=== PATIENT | female | born 1970 ===

== ENCOUNTER 2020-07-01 12:00 | Outpatient (REF) | payer OTHER, SELFPAY ==
[2020-07-01 13:15] LABS: Hemoglobin 9.9 g/dl (12.0-16.0); Imm Gran Abs Auto 0.01 X10*3/uL (0.00-0.03); Imm Gran Pct Auto 0.2 % (0.0-0.4); MANUAL DIFF FLAG SCAN; SCAN SMEAR FLAG 1
[2020-07-01 13:17] LABS: Basophils Percent Auto 0.2 % (0-2); Eosinophils Absolute Auto 0.2 X10*3/uL (0.0-0.4); Eosinophils Percent Auto 4.5 % (0-4); Hematocrit 35.9 % (37-47); Lymphocytes Absolute Auto 1.6 X10*3/uL (1.2-4.9); Lymphocytes Percent Auto 34.8 % (20-40); Mean Corpuscular HGB Conc 27.6 g/dl (31.0-35.0); Mean Corpuscular Hemoglobin 18.4 pg (27.0-33.0); Mean Corpuscular Volume 66.9 fL (80-98); Mean Platelet Volume 10.4 fL (9.4-12.3); Monocytes Absolute Auto 0.5 X10*3/uL (0.1-1.2); Monocytes Percent Auto 9.8 % (2-11); Neutrophils Absolute Auto 2.4 X10*3/uL (2.0-8.3); Neutrophils Percent Auto 50.5 % (45-73); Platelet Count 262 X10*3/uL (160-400); Red Blood Count 5.37 X10*6/uL (4.20-5.50); Red Cell Distribution Width 18.2 % (11.0-16.0); White Blood Count 4.7 X10*3/uL (4.8-10.8)
[2020-07-01 13:19] LABS: PLT ABN DIST 1
[2020-07-01 13:47] LABS: Anion Gap 10 (12-20); Blood Urea Nitrogen 13 mg/dL (9-16); Calcium 8.9 mg/dL (8.4-10.2); Carbon Dioxide 27 mmol/L (22-29); Chloride 105 mmol/L (96-108); Estimated Glomerular Filt Rate > 60; Glucose Fasting 71 mg/dL (60-99); Sodium 138 mmol/L (135-145)
== END 2020-07-01 12:01 | disposition home or self-care (01) ==
LOC: HO.LAB 12:00
PROVIDERS: PCP Internal Medicine; Visit Provider Nurse Practitioner Family
DX: M51.36 Other intervertebral disc degeneration, lumbar region (principal); D64.9 Anemia, unspecified
CPT/HCPCS: 36415; 80048; 85025

== ENCOUNTER 2020-09-20 07:49 | Outpatient (REF) | payer OTHER, SELFPAY | END 2020-09-20 07:50 | disposition home or self-care (01) | LOC: HO.MDS 07:49 | PROVIDERS: PCP Internal Medicine; Visit Provider Internal Medicine Medical Oncology | DX: D50.9 Iron deficiency anemia, unspecified (principal) | CPT/HCPCS: 96365; 96366; J1200; J1750; Q0163 ==

== ENCOUNTER → 2021-01-23 16:06 | Outpatient (BNVA) | payer OTHER, SELFPAY | PROVIDERS: PCP Internal Medicine; Referring Provider Internal Medicine; Visit Provider Nurse Practitioner Family | DX: R10.84 Generalized abdominal pain (principal); D50.9 Iron deficiency anemia, unspecified; D64.9 Anemia, unspecified; K59.00 Constipation, unspecified; M51.36 Other intervertebral disc degeneration, lumbar region; Z98.51 Tubal ligation status | CPT/HCPCS: 99212 ==

== ENCOUNTER → 2021-04-22 13:54 | Outpatient (BNVA) | payer OTHER, SELFPAY | PROVIDERS: PCP Internal Medicine; Visit Provider Nurse Practitioner Family | DX: K59.03 Drug induced constipation (principal); D50.9 Iron deficiency anemia, unspecified; K64.9 Unspecified hemorrhoids; Z88.6 Allergy status to analgesic agent; Z88.5 Allergy status to narcotic agent; Z88.0 Allergy status to penicillin; Z88.8 Allergy status to other drugs, medicaments and biological substances | CPT/HCPCS: 99212 ==

== ENCOUNTER 2021-05-17 10:25 | Emergency (ER) | payer OTHER, SELFPAY ==
[2021-05-17 10:41] VITALS: BP 156/107; PULSE 84; RESP 16; TEMP 36.5; O2SAT 99; BMI 30.1
== END 2021-05-17 12:17 | disposition left against medical advice (07) ==
PROVIDERS: Emergency Provider Emergency Medicine; PCP Internal Medicine
DX: M54.5 Low back pain (principal); R10.9 Unspecified abdominal pain
CPT/HCPCS: 99281; 99282

== ENCOUNTER 2021-05-20 15:11 | Outpatient (REF) | payer OTHER, SELFPAY ==
[2021-05-20 17:29] LABS: Hematocrit 43.6 % (37-47); Hemoglobin 13.8 g/dl (12.0-16.0); Mean Corpuscular HGB Conc 31.7 g/dl (31.0-35.0); Mean Corpuscular Hemoglobin 26.1 pg (27.0-33.0); Mean Corpuscular Volume 82.6 fL (80-98); Mean Platelet Volume 10.6 fL (9.4-12.3); Platelet Count 230 X10*3/uL (160-400); Red Blood Count 5.28 X10*6/uL (4.20-5.50); Red Cell Distribution Width 13.7 % (11.0-16.0); White Blood Count 5.3 X10*3/uL (4.8-10.8)
[2021-05-20 17:44] LABS: Alanine Aminotransferase 38 U/L (0-31); Albumin Level 3.9 g/dL (3.5-5.0); Alkaline Phosphatase 75 U/L (39-117); Anion Gap 11 (12-20); Aspartate Amino Transferase 23 U/L (5-31); Bilirubin Total 0.6 mg/dL (0.0-1.0); Blood Urea Nitrogen 16 mg/dL (9-16); Calcium 9.8 mg/dL (8.4-10.2); Carbon Dioxide 24 mmol/L (22-29); Chloride 107 mmol/L (96-108); Creatinine Clr Calc Pharmacy 94.2; Estimated Glomerular Filt Rate > 60; Glucose Random 88 mg/dL (60-115); Lipase 48 U/L (8-78); Potassium 4.2 mmol/L (3.3-5.1); Sodium 138 mmol/L (135-145)
== END 2021-05-20 15:12 | disposition home or self-care (01) ==
LOC: HO.LAB 15:11
PROVIDERS: PCP Internal Medicine; Referring Provider Internal Medicine; Visit Provider Nurse Practitioner Family
DX: R10.84 Generalized abdominal pain (principal); K59.03 Drug induced constipation; R11.0 Nausea; R14.0 Abdominal distension (gaseous)
CPT/HCPCS: 36415; 80053; 83516; 83690; 85027; 99212

== ENCOUNTER 2021-06-10 08:48 | Day surgery (SDC) | payer OTHER, SELFPAY ==
[2021-06-05 09:10] VITALS: BMI 30.1
--- NOTE | 2021-06-09 08:29 | HO.ANESPROP2 ---
Documented by User: Nora Mac NP 06/09/21 08:31 HPI - Anesthesia Eval Consult details Narrative: 50yo F for Colonoscopy *Multiple Med Allergies* PMFSH Active Problems Active Problems: All Active Problems (Updated 03/17/21 @ 12:16 by Sejal Watkins MD) Allergic rhinitis (Acute) Drug induced constipation (Acute) Abdominal pain (Acute) Iron deficiency anemia (Acute) Anemia (Acute) Lumbar degenerative disc disease (Acute) Past Medical History Medical History Abdominal pain Allergic rhinitis Anemia Drug induced constipation Lumbar degenerative disc disease Family History Family History Father No problems noted. Mother History of kidney cancer Maternal Grandmother Colon cancer Daughter Asthma Surgical History Surgical History History of laparoscopic cholecystectomy History of tubal ligation Social History Social History Housing: Apartment Alcohol intake: never Patient Tobacco Use Status: Never used Tobacco Tobacco use type: Cigarette e-Cigarette/Vaping Use: Never Used Second Hand Smoke Exposure: No Advance Directives: No Advance Directives Information Provided: Yes service: No Current occupational status: unemployed Meds Allergies Allergy/AdvReac Type Severity Reaction Status Date / Time codeine Allergy Intermediate HIVES, Verified 05/20/21 15:32 [From Tylenol-Codeine #3] aggitation omeprazole [OMEPRAZOLE] Allergy Intermediate ABD.PAIN, Verified 05/20/21 15:32 abdominal bloating, abdominal bloating oxycodone [OXYCODONE] Allergy Intermediate AGITATION Verified 05/20/21 15:32 penicillin G Allergy Intermediate rash Verified 05/20/21 15:32 acetaminophen [Percocet] AdvReac Intermediate aggitation Verified 05/20/21 15:32 morphine [MORPHINE] AdvReac Intermediate AGITATION, Verified 05/20/21 15:32 flip out Exam Exam Date and Time: June 09, 2021 0829 Height,Weight and Vital Signs: Height 5 ft 3 in Weight 77.111 kg Pertinent Lab Results Pertinent Lab Results: Laboratory Tests 09/28/21 09/28/21 16:25 16:25 WBC 5.3 Hgb 13.8 Hct 43.6 Plt Count 230 Sodium 138 Potassium 4.2 Chloride 107 Carbon Dioxide 24 BUN 16 Creatinine 0.71 Assessment and Plan Assessment Anesthesia Assessment: Chart Reviewed Documented by User: Jarod Britt MD 06/10/21 09:20 [facility] Past Medical History Medical History Abdominal pain Allergic rhinitis Anemia Drug induced constipation Lumbar degenerative disc disease Family History Family History Father No problems noted. Mother History of kidney cancer Maternal Grandmother Colon cancer Daughter Asthma Surgical History Surgical History History of laparoscopic cholecystectomy History of tubal ligation Social History Social History Housing: Apartment Alcohol intake: never Patient Tobacco Use Status: Never used Tobacco Tobacco use type: Cigarette e-Cigarette/Vaping Use: Never Used Second Hand Smoke Exposure: No Advance Directives: No Advance Directives Information Provided: Yes service: No Current occupational status: unemployed Meds Allergies Allergy/AdvReac Type Severity Reaction Status Date / Time codeine Allergy Intermediate HIVES, Verified 05/20/21 15:32 [From Tylenol-Codeine #3] aggitation omeprazole [OMEPRAZOLE] Allergy Intermediate ABD.PAIN, Verified 05/20/21 15:32 abdominal bloating, abdominal bloating oxycodone [OXYCODONE] Allergy Intermediate AGITATION Verified 05/20/21 15:32 penicillin G Allergy Intermediate rash Verified 05/20/21 15:32 acetaminophen [Percocet] AdvReac Intermediate aggitation Verified 05/20/21 15:32 morphine [MORPHINE] AdvReac Intermediate AGITATION, Verified 05/20/21 15:32 flip out Exam Airway Mallampati Class: III TM Dist: >3cm Neck ROM: Full
--- NOTE | 2021-06-10 08:57 | MHC.SHP ---
Pre-Procedural Eval Section A Date of Service: 06/10/21 The patient is an INPATIENT: No Changes since office visit: Yes Patient answered all questions; No Cold of Flu in the past 2 weeks, No New Medical Problems and No Changes in Medication The History & Physical has been completed within 30 days and I have reviewed it.: Yes Section B Chief Complaint: Screening Allergies: Allergies Allergy/AdvReac Type Severity Reaction Status Date / Time codeine Allergy Intermediate HIVES, Verified 05/20/21 15:32 [From Tylenol-Codeine #3] aggitation omeprazole [OMEPRAZOLE] Allergy Intermediate ABD.PAIN, Verified 05/20/21 15:32 abdominal bloating, abdominal bloating oxycodone [OXYCODONE] Allergy Intermediate AGITATION Verified 05/20/21 15:32 penicillin G Allergy Intermediate rash Verified 05/20/21 15:32 acetaminophen [Percocet] AdvReac Intermediate aggitation Verified 05/20/21 15:32 morphine [MORPHINE] AdvReac Intermediate AGITATION, Verified 05/20/21 15:32 flip out Plan I have reviewed the history and physical and performed a pertinent physical examination on my patient. No changes have occurred unless specified.
[2021-06-10 09:22] VITALS: BP 120/75; PULSE 88; RESP 18; TEMP 35.8; O2SAT 97
[2021-06-10] MEDS: Lactated Ringers 1,000 ML 100 ML IVCONT (09:24)
--- NOTE | 2021-06-10 09:59 | P.OP_ITS ---
Operative Note Operative Note Date of Service: 06/10/21 Narrative: Pre-op diagnosis:?Colon cancer screening, chronic constipation, abdominal pain Post-op diagnosis:?other (Diverticulosis, hemorrhoids) Procedure:? COLONOSCOPY TILL CECUM WITH BIOPSIES Consent: Indications for the procedure and potential complications of bleeding, perforation, reaction to medications and missed diagnosis were discussed with the patient and informed consent was obtained. Instrument: Olympus PCF H 190 L variable stiffness pediatric colonoscope Monitoring: Vital signs and clinical assessment, intermittent blood pressure monitoring, continuous EKG monitoring, Pulse oximetry and Carbon Dioxide monitoring were done throughout the procedure. Colon withdrawl time was 18 minutes. Procedure: The patient was placed in the left lateral decubitis position and pre-procedure medications were administered. After a digital rectal examination of the ano-rectum, the video colonoscope was inserted into the rectum and advanced through the colon to the cecum. The colonoscope was slowly withdrawn in a retrograde panoramic fashion and the colon mucosa was carefully examined including a retroflexed view of the rectum. Findings and interventions are described below. Procedure Difficulty: Without difficulty Findings: Terminal Ileum: Distal 5-6 cm was examined - showed multiple 4-5 mm nodules which were biopsied. Cecum:? Normal Ascending Colon:? Normal Transverse Colon:? Normal Descending Colon:? Normal Sigmoid Colon:? Moderate diverticulosis Rectum:? Normal Ano-rectum:? Moderate internal hemorrhoids Colon preparation:? Good after copious irrigation and fair in some areas of the colon due to undigested vegetable matter which could not be suctioned (pt had chicken noodle soup last night). Impression and Post Procedure Diagnosis: Colonoscopy Findings: No polyps were detected. Random biopsies obtained from the TI and cold to check for IBD/microscopic colitis. Moderate diverticulosis seen in the sigmoid colon Moderate hemorrhoids on retroflexed exam. Plan: Await pathology results Patient has an appointment on 07/04/21 in the GI Clinic with ? Minnie Gaffney, MANUFACTURING ENGINEERING MANAGER[employer]INA . Repeat Colonoscopy interval based on path results - in 5 years if biopsies are normal and due to FH of colon cancer. Above findings were reviewed with the patient and diverticulosis handouts were given in the discharge area Surgeon:?Mary Black MD Anesthesia:?MAC (Bea Ivy CRNA) Was an Conveyor Mechanic used for this Procedure?:?Yes Conveyor Mechanic:?Shelley Morfin Estimated blood loss (mL):?0 Pathology:?other (A. T I BIOPSIES? B. RANDOM COLON BIOPSIES, R/O INFLAMMATORY BOWEL DISEASE) Condition:?stable Disposition:?PACU
[2021-06-10 10:35] VITALS: BP 111/69; PULSE 83; RESP 22; TEMP 36.3; O2SAT 97
[2021-06-10 10:50] VITALS: BP 140/89; PULSE 88; RESP 18; TEMP 36.3; O2SAT 99
== END 2021-06-10 11:50 | disposition home or self-care (01) ==
PROVIDERS: PCP Internal Medicine; Visit Provider Internal Medicine Gastroenterology
PROC: 0DJD8ZZ Inspection of Lower Intestinal Tract, Via Natural or Artificial Opening Endoscopic (ICD-10-PCS; CPT 45378; principal; 2021-06-10 09:50)
DX: Z12.11 Encounter for screening for malignant neoplasm of colon (principal); K57.30 Diverticulosis of large intestine without perforation or abscess without bleeding; K64.8 Other hemorrhoids; Z80.0 Family history of malignant neoplasm of digestive organs; K59.03 Drug induced constipation; Z79.899 Other long term (current) drug therapy; D50.9 Iron deficiency anemia, unspecified; Z90.49 Acquired absence of other specified parts of digestive tract; Z98.51 Tubal ligation status; Z88.0 Allergy status to penicillin; Z88.8 Allergy status to other drugs, medicaments and biological substances
CPT/HCPCS: 45380; 88305

== ENCOUNTER → 2021-07-04 14:15 | Outpatient (BNVA) | payer OTHER, SELFPAY | PROVIDERS: PCP Internal Medicine; Visit Provider Nurse Practitioner Family ==

== ENCOUNTER → 2021-09-24 13:49 | Outpatient (BNVA) | payer OTHER, SELFPAY | PROVIDERS: PCP Internal Medicine; Referring Provider Internal Medicine; Visit Provider Nurse Practitioner Family | DX: R10.84 Generalized abdominal pain (principal); K59.04 Chronic idiopathic constipation | CPT/HCPCS: 99212 ==

== ENCOUNTER 2021-12-13 18:04 | Emergency (ER) | payer OTHER, SELFPAY ==
--- NOTE | ~2021-12-13 | XR_ITS ---
EXAMINATION: XR CHEST CLINICAL INFORMATION: Cough COMPARISON: 08/30/2018 TECHNIQUE: Frontal view of the chest was obtained. FINDINGS: No significant abnormality is noted involving the heart, lungs, mediastinum, bony thorax or soft tissues. XR/XR chest 1V IMPRESSION: Unremarkable examination.
[2021-12-13 18:08] VITALS: BP 148/94; PULSE 89; RESP 20; TEMP 36.6; O2SAT 98; BMI 30.1
--- NOTE | 2021-12-13 19:16 | ED_ITS ---
HPI - URI/Sore Throat General Chief Complaint: Upper Respiratory Symptoms Stated Complaint: Flu like symptoms Time Seen by Provider: 12/13/21 19:16 Source: patient Mode of arrival: ambulatory Limitations: no limitations History of Present Illness HPI Narrative: Patient is a 51 year old female presenting to the emergency department today with a cough and feeling generally unwell. Patient states that for the last 2 days, she has had a cough and felt generally unwell. Patient denies any dizziness, lightheadedness, abdominal pain, nausea, vomiting, chills, blurry vision, double vision, loss of vision, chest pain, difficulty breathing, shortness of breath, back pain, night sweats, pain with urination, increased urinary frequency, increased urinary urgency, blood in her urine or stool, syncope or a near syncopal episode, recent trauma or falls, bowel incontinence, bladder incontinence, bowel retention, bladder retention, or any other complaints at this time. MD elicited complaint: fever and cough Onset (ago): day(s) (2) Consistency: constant Able to tolerate fluids by mouth: Yes Exacerbating factors: nothing Relieving factors: nothing Context: sick contacts Associated symptoms: fever and cough Treatments prior to arrival: none Related Data Previous Rx's Medication Instructions Recorded loratadine 10 mg tablet (Allergy 10 mg PO DAILY PRN 90 Days #90 tab 02/12/21 Relief (loratadine)) [id number] 1 cap PO QID #120 cap 09/24/21 12,000-38,000-60,000 unit capsule,delayed rel (Creon) lubiprostone 8 mcg capsule 8 mcg PO BID #60 cap 09/24/21 (Amitiza) hydrocodone 5 mg-acetaminophen 325 1 tab PO TID PRN 30 Days #90 tab 11/17/21 mg tablet Allergies Allergy/AdvReac Type Severity Reaction Status Date / Time codeine Allergy Intermediate HIVES, Verified 12/04/21 08:14 [From Tylenol-Codeine #3] aggitation omeprazole [OMEPRAZOLE] Allergy Intermediate ABD.PAIN, Verified 12/04/21 08:14 abdominal bloating, abdominal bloating oxycodone [OXYCODONE] Allergy Intermediate AGITATION Verified 12/04/21 08:14 penicillin G Allergy Intermediate rash Verified 12/04/21 08:14 acetaminophen [Percocet] AdvReac Intermediate aggitation Verified 12/04/21 08:14 morphine [MORPHINE] AdvReac Intermediate AGITATION, Verified 12/04/21 08:14 flip out Review of Systems Constitutional: Constitutional: Reports no additional constitutional complaints, Denies chills, Reports fever(s) and Denies night sweats Eyes: Eyes: Reports no additional eye complaints, Denies blurry vision, Denies change in vision, Denies diplopia, Denies eye discharge, Denies loss of vision and Denies eye pain ENT: Denies dizziness Cardiovascular: Cardiovascular: Reports no additional cardiovascular complaints, Denies chest pain, Denies lightheadedness, Denies Loss of Consciousness and Denies dyspnea Respiratory: Respiratory: Reports no additional respiratory complaints, Reports cough and Denies dyspnea Gastrointestinal: Gastrointestinal: Reports no additional gastrointestinal complaints, Denies abdominal pain, Denies melena, Denies hematochezia, Denies change in bowel habits and Denies change in stool character Genitourinary: Genitourinary: Denies hematuria, Denies urinary frequency, Denies dysuria, Denies urinary incontinence, Denies urinary hesitancy and Denies urinary urgency Musculoskeletal: Musculoskeletal: Reports no additional musculoskeletal complaints, Denies numbness and Denies tingling Neurologic: Denies dizziness, Denies loss of vision, Denies numbness and Denies tingling Psychiatric: Psychiatric: Reports no additional psychiatric complaints Endocrine: Endocrine: Reports no additional endocrine complaints Hematologic/Lymphatic: Hematologic/Lymphatic: Reports no additional hematologic/lymphatic complaints Allergic/Immunologic: Allergic/Immunologic: Reports no additional allergic/immunologic complaints [facility] Past Medical History Attestation statement: The following information was validated with the patient. Source: old records reviewed Medical History Abdominal pain Allergic rhinitis Anemia BMI 32.0-32.9,adult Drug induced constipation Hx of hemorrhoids Lumbar degenerative disc disease Rash Surgical History History of esophagogastroduodenoscopy (EGD) History of laparoscopic cholecystectomy History of tubal ligation Hx of colonoscopy Family History Family History Father No problems noted. Mother History of kidney cancer Maternal Grandmother Colon cancer Daughter Asthma Social History Social History (Reviewed 12/13/21 @ 20:00 by WILMAN Myers Housing: Apartment Alcohol intake: never Patient Tobacco Use Status: Never used Tobacco e-Cigarette/Vaping Use: Never Used Second Hand Smoke Exposure: No Advance Directives: No Advance Directives Information Provided: No service: No Current occupational status: unemployed Cognitive needs: No Hearing needs: No Vision needs: No Physical Exam Vital Signs: Vital Signs: Last Vital Signs Temp 97.9 F 12/13/21 18:08 Pulse 89 12/13/21 18:08 Resp 20 12/13/21 18:08 BP 148/94 H 12/13/21 18:08 Pulse Ox 98 12/13/21 18:08 BMI result Body Mass Index 30.1 Const: General: cooperative, no acute distress, alert and awake Nutritional Appearance: well nourished Orientation/consciousness: patient oriented x3 Limitations: no limitations HEENT: Head: Yes normal to inspection and Yes atraumatic Ears: hearing grossly normal bilaterally and external ears normal General nose exam: Normal external nose present, no nasal discharge noted and no epistaxis Face and sinus: Yes normal facial exam, No abrasion and No laceration Mouth: Normal oral and palatal mucosa present, no drooling and no muffled voice Eyes: General: appearance normal, both eyes and all related structures Periorbital: periorbital findings normal Eyelids: Yes eyelids normal Conjunctivae: conjunctivae normal Pupils: Equal, round and reactive pupils present EOM: EOMs intact bilaterally Neck: Neck: Yes normal visual inspection, Yes full ROM and Yes no lymphadenopathy Chest: Chest palpation & inspection: normal inspection of the chest Resp: Effort & Inspection: normal respiratory effort and able to speak in complete sentences Auscultation: clear to auscultation bilaterally Cardio: Rate: regular rate Rhythm: regular rhythm GI: Inspection: Yes normal to inspection Neuro: General: patient oriented x3 and moves all extremities Cranial nerves: Yes Equal, round and reactive pupils present Cognition (Neuro): normal cognition Motor exam (neuro): 5/5 motor strength present throughout Sensory Exam: Normal double simultaneous stimulation for sensation Coordination: [id number] test normal Extrem: General: Yes normal to inspection, Yes full ROM and Yes capillary refi ll normal Psych: Appearance: grossly normal Mental Status: mental status grossly normal Affect: normal affect Attitude: cooperative Thought process: Normal thought process present Thought content: Normal thought content present Insight: Good insight present (Psych) MDM - URI/Sore Throat MDM Narrative Medical decision making narrative: Patient is a 51 year old female presenting to the emergency department today with a cough and feeling generally unwell. Patient's physical exam was unremarkable. Patient's rapid COVID-19 test was positive. Patient's chest x-ray showed no acute process. I explained my physical exam findings as well as all test results to the patient and the patient's daughter. I answered all questions asked by the patient and the patient's daughter. I stressed the importance of the patient taking her medication as prescribed. I stressed the importance of t he patient following up with her primary care provider. I stressed the importance of the patient returning to the emergency department immediately if her symptoms were to worsen or if she were to develop any dizziness, shortness of breath, difficulty breathing, chest pain, blurry vision, loss of vision, nausea, vomiting, abdominal pain, fever, chills, back pain, or any other complaints. Patient and the patient's daughter verbalized agreement and understanding with this treatment plan and discharge. Differential Diagnosis Differential diagnosis: Likely upper respiratory infection, viral infection (COVID-19) and influenza Medical Records Attestation: I reviewed the patient's medical records. Lab Data Attestation: I reviewed the patient's lab results. Labs: Lab Results 12/13/21 Range/Units 18:12 Influenza Type A (PCR) NEGATIVE (Negative) Influenza Type B (PCR) NEGATIVE (Negative) RSV RNA Qual (PCR) NEGATIVE (Negative) SARS-CoV-2 RNA (RT-PCR) POSITIVE A (Negative) Imaging Data Chest x-ray: Attestation: I personally reviewed and interpreted this imaging study as follows: My impression: No acute process. Radiologist's impression: EXAMINATION: XR CHEST CLINICAL INFORMATION: Cough COMPARISON: 08/30/2018 TECHNIQUE: Frontal view of the chest was obtained. FINDINGS: No significant abnormality is noted involving the heart, lungs, mediastinum, bony thorax or soft tissues. XR/XR chest 1V IMPRESSION: Unremarkable examination. Dictated By: Darion Owens MD Signed By: Electronically signed by Darion Owens MD 12/13/21 193 Discharge Plan Discharge Clinical Impression: COVID-19 Patient Disposition: Home, Self-Care Instructions: COVID-19 (Coronavirus Disease 2019) (ED) Additional Instructions: Follow up with your primary care provider. Return to the emergency department immediately if your symptoms worsen or if you develop any dizziness, shortness of breath, difficulty breathing, chest pain, blurry vision, loss of vision, nausea, vomiting, abdominal pain, fever, chills, back pain, or any other complaints. Prescriptions: No Action loratadine [Allergy Relief (loratadine)] 10 mg tablet 10 mg PO DAILY PRN (Reason: allergy symptoms) 90 Days Qty: 90 1RF hydrocodone-acetaminophen 5-325 mg tablet 1 tab PO TID PRN (Reason: pain) 30 Days Qty: 90 0RF Creon 12,000-38,000 -60,000 unit capsule,delayed release(DR/EC) 1 cap PO QID Qty: 120 4RF Rx Instructions: administer with meals and/or snacks lubiprostone [Amitiza] 8 mcg capsule 8 mcg PO BID Qty: 60 3RF Referrals: Sjeal Nolasco MD [Primary Care Provider] - (Follow up with your PCP.) Stand Alone Forms: Work/School Release Interventions: ED Discharge Assessment Last Done: 12/13/21 19:49 Discharge Date/Time: 12/13/21 19:53 Print Language: Uzbek
[2021-12-13 19:26] LABS: Influenza A PCR NEGATIVE (Negative); Influenza B PCR NEGATIVE (Negative); Resp Syncy Virus RNA Qual PCR NEGATIVE (Negative); SARS COV2 PCR INHOUSE POSITIVE (Negative)
== END 2021-12-13 19:53 | disposition home or self-care (01) ==
PROVIDERS: Emergency Provider Emergency Medicine Emergency Medical Services; PCP Internal Medicine
DX: U07.1 COVID-19 (principal); R50.9 Fever, unspecified; R05.9 Cough, unspecified; Z79.899 Other long term (current) drug therapy
CPT/HCPCS: 0241U; 71045; 99283

== ENCOUNTER → 2022-01-02 11:06 | Outpatient (BNVA) | payer OTHER, SELFPAY | PROVIDERS: PCP Internal Medicine; Referring Provider Internal Medicine; Visit Provider Nurse Practitioner Family | DX: K59.03 Drug induced constipation (principal); K58.1 Irritable bowel syndrome with constipation; K21.9 Gastro-esophageal reflux disease without esophagitis; R10.84 Generalized abdominal pain | CPT/HCPCS: 99212 ==

== ENCOUNTER 2022-01-07 12:41 | Outpatient (REF) | payer OTHER, SELFPAY ==
[2022-01-15 14:21] LABS: Pancreatic Elastase-1 >500 mcg/g
== END 2022-01-07 12:42 | disposition home or self-care (01) ==
LOC: HO.LNP 12:41
PROVIDERS: Visit Provider Nurse Practitioner Family
DX: R10.9 Unspecified abdominal pain (principal); K21.9 Gastro-esophageal reflux disease without esophagitis
CPT/HCPCS: 82656; 87338

== ENCOUNTER → 2022-03-02 12:04 | Outpatient (BNVA) | payer OTHER, SELFPAY | PROVIDERS: PCP Internal Medicine; Visit Provider Nurse Practitioner Family | DX: K21.9 Gastro-esophageal reflux disease without esophagitis (principal); R10.84 Generalized abdominal pain; K58.2 Mixed irritable bowel syndrome; K64.9 Unspecified hemorrhoids; Z79.899 Other long term (current) drug therapy | CPT/HCPCS: 99212 ==

== ENCOUNTER 2022-03-17 15:39 | Outpatient (REF) | payer OTHER, SELFPAY ==
[2022-03-18 15:42] LABS: H Pylori Breath Test Positive (Negative)
== END 2022-03-17 15:40 | disposition home or self-care (01) ==
LOC: HO.LNP 15:39
PROVIDERS: Visit Provider Nurse Practitioner Family
DX: Z11.2 Encounter for screening for other bacterial diseases (principal)
CPT/HCPCS: 83013; 99212

== ENCOUNTER → 2022-05-20 13:58 | Outpatient (BNVA) | payer OTHER, SELFPAY | PROVIDERS: PCP Internal Medicine; Visit Provider Surgery | DX: K64.8 Other hemorrhoids (principal) | CPT/HCPCS: 46600; 99202 ==

== ENCOUNTER 2022-06-09 17:04 | Outpatient (REF) | payer OTHER, SELFPAY ==
[2022-06-09 17:26] LABS: Amphetamine Screen Urine Not Detected (Not Detect); Barbiturates, Urine Not Detected (Not Detect); Benzodiazepines Screen Urine Not Detected (Not Detect); Cannabinoid Screen Urine Not Detected (Not Detect); Cocaine Screen Urine Not Detected (Not Detect); Fentanyl, urine Not Detected (Not Detect); Opiate Screen Urine Not Detected (Not Detect); Phencyclidine Screen Urine Not Detected (Not Detect)
[2022-06-16 09:48] LABS: Codeine, Ur NEGATIVE; Hydrocodone, Ur NEGATIVE; Hydromorphone, Ur NEGATIVE; Morphine, Ur NEGATIVE; Norhydrocodone, Ur NEGATIVE; Noroxycodone, Ur NEGATIVE; Oxycodone, Ur NEGATIVE; Oxymorphone, Ur NEGATIVE
== END 2022-06-09 17:05 | disposition home or self-care (01) ==
LOC: HO.LNP 17:04
PROVIDERS: Visit Provider Internal Medicine
DX: R10.84 Generalized abdominal pain (principal); D64.9 Anemia, unspecified; D50.9 Iron deficiency anemia, unspecified
CPT/HCPCS: 80307; 80364; 80365

== ENCOUNTER 2022-06-16 05:56 | Day surgery (SDC) | payer OTHER, SELFPAY ==
[2022-06-10 11:27] VITALS: BMI 31.7
--- NOTE | 2022-06-15 08:55 | HO.ANESPROP2 ---
Documented by User: Nora Mac NP 06/15/22 08:56 HPI - Anesthesia Eval Consult details Narrative: 51yo F for Hemorrhoidectomy, EUA Chronic opioids PMFSH Active Problems Active Problems: All Active Problems (Updated 06/10/22 @ 11:22 by Bernarda Robles RN) Iron deficiency anemia (Acute) COVID-19 (Acute) Physical exam (Acute) Hemorrhoids with complication (Acute) BMI 32.0-32.9,adult (Acute) Rash (Acute) Allergic rhinitis (Acute) Drug induced constipation (Acute) Abdominal pain (Acute) Anemia (Acute) Lumbar degenerative disc disease (Acute) Past Medical History Medical History (Updated 06/10/22 @ 11:22 by Bernarda Robles RN) Abdominal pain Allergic rhinitis Anemia BMI 32.0-32.9,adult Drug induced constipation Hemorrhoids with complication History of COVID-19 Hx of hemorrhoids Lumbar degenerative disc disease Rash Family History Family History Father No problems noted. Mother History of kidney cancer Maternal Grandmother Colon cancer Daughter Asthma Surgical History Surgical History (Updated 06/10/22 @ 11:24 by Bernarda Robles RN) History of esophagogastroduodenoscopy (EGD) History of laparoscopic cholecystectomy History of tubal ligation Hx of colonoscopy Social History Social History Household Members: None Housing: House Are you a primary healthcare risk control consultant to a significant other at home: No Do you presently have visiting nurse or other home services: No Alcohol intake: never Patient Tobacco Use Status: Never used Tobacco e-Cigarette/Vaping Use: Never Used Second Hand Smoke Exposure: No Use of substances other than those prescribed or required for medical reasons: No Are you DNR?: No Advance Directives: No Advance Directives Information Provided: Yes service: No Current occupational status: unemployed Cognitive needs: No Hearing needs: No Vision needs: No Meds Allergies Allergy/AdvReac Type Severity Reaction Status Date / Time codeine Allergy Intermediate HIVES, Verified 06/10/22 11:26 [From Tylenol-Codeine #3] agitation omeprazole [OMEPRAZOLE] Allergy Intermediate abd Verified 06/10/22 11:26 pain/bloating penicillin G Allergy Intermediate rash Verified 06/09/22 12:44 morphine [MORPHINE] AdvReac Intermediate agitation, Verified 06/10/22 11:26 flips out oxycodone AdvReac Intermediate agitation Verified 06/10/22 11:26 Home Medications Medication Instructions Recorded Confirmed Last Taken Type [id number]-[id number]-[id number] 1 cap PO QID 01/29/22 06/10/22 Unknown History 12,000-38,000-60,000 unit capsule,delayed rel (Creon) Exam Exam Date and Time: June 15, 2022 0855 Height,Weight and Vital Signs: Height 5 ft 3 in Weight 81.306 kg Pertinent Lab Results Pertinent Lab Results: Laboratory Tests 01/29/22 01/29/22 11:44 11:44 WBC 4.3 L Hgb 13.3 Hct 44.9 Plt Count 235 Sodium 138 Potassium 4.3 Chloride 108 Carbon Dioxide 25 BUN 9 Creatinine 0.67 Assessment and Plan Assessment Anesthesia Assessment: Chart Reviewed Documented by User: Mandy Guzman MD 06/16/22 08:24 PMFSH Past Medical History Medical History (Updated 06/10/22 @ 11:22 by Bernarda Robles, RN) Abdominal pain Allergic rhinitis Anemia BMI 32.0-32.9,adult Drug induced constipation Hemorrhoids with complication History of COVID-19 Hx of hemorrhoids Lumbar degenerative disc disease Rash Family History Family History Father No problems noted. Mother History of kidney cancer Maternal Grandmother Colon cancer Daughter Asthma Family history of problems with anesthesia: No Surgical History Surgical History (Updated 06/10/22 @ 11:24 by Bernarda Robles, RN) History of esophagogastroduodenoscopy (EGD) History of laparoscopic cholecystectomy History of tubal ligation Hx of colonoscopy History of Problems with Anesthesia: Yes (PONV) Social History Social History Household Members: None Housing: House Are you a primary healthcare risk control consultant to a significant other at home: No Do you presently have visiting nurse or other home services: No Alcohol intake: never Patient Tobacco Use Status: Never used Tobacco e-Cigarette/Vaping Use: Never Used Second Hand Smoke Exposure: No Use of substances other than those prescribed or required for medical reasons: No Are you DNR?: No Advance Directives: No Advance Directives Information Provided: Yes service: No Current occupational status: unemployed Cognitive needs: No Hearing needs: No Vision needs: No Meds Allergies Allergy/AdvReac Type Severity Reaction Status Date / Time codeine Allergy Intermediate HIVES, Verified 06/10/22 11:26 [From Tylenol-Codeine #3] agitation omeprazole [OMEPRAZOLE] Allergy Intermediate abd Verified 06/10/22 11:26 pain/bloating penicillin G Allergy Intermediate rash Verified 06/09/22 12:44 morphine [MORPHINE] AdvReac Intermediate agitation, Verified 06/10/22 11:26 flips out oxycodone AdvReac Intermediate agitation Verified 06/10/22 11:26 Home Medications Medication Instructions Recorded Confirmed Last Taken Type vtyxrl-[id number]-[id number] 1 cap PO QID 01/29/22 06/10/22 Unknown History 12,000-38,000-60,000 unit capsule,delayed rel (Creon) Exam Height,Weight and Vital Signs: Height 5 ft 3 in Weight 81.306 kg Vital Signs Temp Pulse Resp BP Pulse Ox O2 Del Method 06/16/22 06:17 97.8 F 82 16 125/82 95 Room Air Airway Mallampati Class: III (Slight overbite) TM Dist: >3cm Neck ROM: Full Loose/Missing/Broken Teeth: No (Denies broken or missing teeth) Heart: RRR Lungs: CTAB Assessment and Plan Assessment Anesthesia Assessment: Anesthesia Plan Discussed Final Anesthetic Review Family History of Problems with Anesthesia: No History of Problems with Anesthesia: Yes (PONV) NPO: Yes ASA Class: II Final Preanesthetic Review: No Changes in Pt Med Stat, Meds/Allgs Chart Reviewed, Consent Obtained/Reviewed and Anes Risks/Benef Reviewed Patient Risk: Low Procedure Risk: Low Assessment/Block/Sedation in SS: Assess/Block/Sedation-SS Anesthetic Plan Anesthetic Plan: GA Disposition: Standard PACU
[2022-06-16] VITALS (17 sets, daily range): BP systolic 125–165; BP diastolic 66–96; PULSE 62–94; RESP 16–20; TEMP 36.3–36.7; O2SAT 95–100; BMI 30.1
[2022-06-16] MEDS: Lactated Ringers 1,000 ML 100 ML IVCONT (06:32)
--- NOTE | 2022-06-16 07:25 | MHC.SHP ---
Pre-Procedural Eval Section A Date of Service: 06/16/22 The patient is an INPATIENT: No Changes since office visit: No Cold of Flu in the past 2 weeks, No New Medical Problems, No Changes in Medication and No Patient answered all questions The History & Physical has been completed within 30 days and I have reviewed it.: Yes Section B Chief Complaint: Other hemorrhoids with complications Allergies: Allergies Allergy/AdvReac Type Severity Reaction Status Date / Time codeine Allergy Intermediate HIVES, Verified 06/10/22 11:26 [From Tylenol-Codeine #3] agitation omeprazole [OMEPRAZOLE] Allergy Intermediate abd Verified 06/10/22 11:26 pain/bloating penicillin G Allergy Intermediate rash Verified 06/09/22 12:44 morphine [MORPHINE] AdvReac Intermediate agitation, Verified 06/10/22 11:26 flips out oxycodone AdvReac Intermediate agitation Verified 06/10/22 11:26 Plan I have reviewed the history and physical and performed a pertinent physical examination on my patient. No changes have occurred unless specified.
--- NOTE | 2022-06-16 08:35 | P.OP_ITS ---
Operative Note Operative Note Date of Service: 06/16/22 Narrative: Preop diagnosis: Hemorrhoids with pain and bleeding Postop diagnosis: 1.Internal external hemorrhoids, with pain and bleeding 2. anal fissure Procedure: Exam under anesthesia, hemorrhoidectomy x2 columns, lateral internal sphincterotomy Surgeon: Micah Jesus MD The patient is a 51-year-old female with complaints of pain and bleeding with bowel movements. Examination in the office showed internal hemorrhoids. However she seemed to have anal skin pain with passage of stools as well consistent with an anal fissure so I explained to her the possibility of doing a sphincterotomy as well as hemorrhoidectomy. She understood the technique of the procedure as well as the risks, benefits, and alternatives. She was brought to the operating room. She was placed in prone moose-knife position under general anesthesia via endotracheal tube. The buttocks were retracted with wide tape laterally. The perianal areas prepped draped usual sterile fashion. A surgical time-out was done. The patient received Cefotan 2 g IV preoperatively. Examination of the anal orifice revealed hemorrhoids both the left and right side. I infiltrated the perianal area with Marcaine 0.5% for possible RADHA. Retraction of the anal canal revealed a posterior midline fissure, short, and just right at the very distal anoderm. I inserted abuse Herzog retractor. I examined the anal canal circumferentially. Again these hemorrhoidal columns were noted, mix of internal external columns. There were no other lesions. I applied a Caicedo grasper at the hemorrhoidal column on the to retract t his. I made a suisry-yz-xsgbh stitch at its pedicle proximal to dentate line using chromic 3-0. I made an incision around this hemorrhoidal column using blade [address] to the perianal skin. I excised this hemorrhoidal column along the incision above the plane of sphincters using Metzenbaum scissors. I closed this incision with a running chromic 3-0 stitch, with additional hemostatic nowlov-nm-rlsaf sutures being placed. I repeated this procedure on the hemorrhoidal column on the right side. Again I retracted this with a Caicedo grasper and made a tjrhol-pa-mesft stitch at the pedicle. I made incision. Additional hemostatic sutures were placed with chromic 3-0 I then proceeded to do my sphincterotomy. I chose an area on the right side at the intersphincteric groove. I made a short incision on the skin overlying this. I then used blunt dissection with fine hemostat to define the internal sphincter fibers. I positioned the hemostat in the intersphincteric plane and divided the internal sphincter fibers using electrocautery down to the level dentate line. I closed this short incision with a running chromic 3-0 stitch . I observed for hemostasis. Once hemostasis was ensured, I infiltrated the perianal area with Marcaine 0.5% for postop analgesia The procedure was then completed. The patient tolerated the procedure well. There were no immediate complications. Initial and final counts of sponges and instruments were correct. Estimated blood loss was about 25 cc The patient was extubated without difficulty transferred to the recovery room with stable vital signs.
[2022-06-16] MEDS: ondansetron HCL 4 MG/2 ML VIAL IVPUSH (09:15)
[2022-06-16] MEDS: fentaNYL citrate/PF 100 MCG/2 ML VIAL 25 MCG IVPUSH ×3 (09:28→10:02)
[2022-06-16] MEDS: HYDROcodone Bit/Acetam 5/325 TABLET 1 TAB PO (09:29)
== END 2022-06-16 11:08 | disposition home or self-care (01) ==
PROVIDERS: PCP Internal Medicine; Visit Provider Surgery
PROC: (CPT 46260; principal; 2022-06-16 07:30)
DX: K64.8 Other hemorrhoids (principal); K64.4 Residual hemorrhoidal skin tags; K60.2 Anal fissure, unspecified; K59.03 Drug induced constipation; Z79.899 Other long term (current) drug therapy; J30.9 Allergic rhinitis, unspecified; Z88.0 Allergy status to penicillin; Z88.8 Allergy status to other drugs, medicaments and biological substances
CPT/HCPCS: 46260; 88304; J1100; J1170; J2250; J2405; J2550; J2795; J3010

== ENCOUNTER → 2022-09-02 09:34 | Outpatient (BNVA) | payer OTHER, SELFPAY | PROVIDERS: PCP Internal Medicine; Visit Provider Surgery | DX: Z13.89 Encounter for screening for other disorder (principal) ==

== ENCOUNTER 2022-11-05 09:16 | Day surgery (SDC) | payer OTHER, SELFPAY ==
--- NOTE | 2022-11-04 13:12 | P.CONAN_ITS ---
Documented by User: Nora Mac NP 11/04/22 13:23 HPI - Anesthesia Eval Consult details Narrative: 52yo F for Upper Endoscopy s/p hemorrhoidectomy 05/2022 with GA-ETT 7 PMFSH Active Problems Active Problems: All Active Problems (Updated 07/31/22 @ 09:45 by Micky Marinelli MD) Iron deficiency anemia (Acute) COVID-19 (Acute) Physical exam (Acute) Hemorrhoids with complication (Acute) BMI 32.0-32.9,adult (Acute) Rash (Acute) Allergic rhinitis (Acute) Drug induced constipation (Acute) Abdominal pain (Acute) Anemia (Acute) Lumbar degenerative disc disease (Acute) Past Medical History Medical History Abdominal pain Allergic rhinitis Anemia BMI 32.0-32.9,adult Drug induced constipation Hemorrhoids with complication History of COVID-19 Hx of hemorrhoids Lumbar degenerative disc disease Rash Family History Family History Father No problems noted. Mother History of kidney cancer Maternal Grandmother Colon cancer Daughter Asthma Family history of problems with anesthesia: No Surgical History Surgical History History of esophagogastroduodenoscopy (EGD) History of hemorrhoidectomy (~06/16/22) History of laparoscopic cholecystectomy History of tubal ligation Hx of colonoscopy History of Problems with Anesthesia: Yes (PONV) Social History Social History Household Members: None Housing: House Are you a primary workforce investment act career manager to a significant other at home: No Do you presently have visiting nurse or other home services: No Alcohol intake: never Patient Tobacco Use Status: Never used Tobacco e-Cigarette/Vaping Use: Never Used Second Hand Smoke Exposure: No service: No Current occupational status: unemployed Cognitive needs: No Hearing needs: No Vision needs: No Meds Allergies Allergy/AdvReac Type Severity Reaction Status Date / Time codeine Allergy Intermediate HIVES, Verified 11/05/22 09:53 [From Tylenol-Codeine #3] agitation omeprazole [OMEPRAZOLE] Allergy Intermediate abd Verified 11/05/22 09:53 pain/bloating penicillin G Allergy Intermediate rash Verified 11/05/22 09:53 morphine [MORPHINE] AdvReac Intermediate agitation, Verified 11/05/22 09:53 flips out Home Medications Medication Instructions Recorded Confirmed Last Taken Type uwpgap-hducshko-qbqyswt 1 cap PO QID 01/29/22 11/05/22 Unknown History 12,000-38,000-60,000 unit capsule,delayed rel (Creon) cetirizine 10 mg tablet 1 tab PO DAILY 11/02/22 11/05/22 Unknown History loratadine 10 mg tablet 1 tab PO DAILY PRN allergies 11/02/22 11/05/22 Unknown History sodium chloride 0.65 % nasal spray 1 spray intranasal DIRECTED 11/02/22 11/05/22 Unknown History aerosol (Saline Nasal) Exam Exam Date and Time: November 04, [id number] Pertinent Lab Results Pertinent Lab Results: Laboratory Tests 07/31/22 07/31/22 08:58 08:58 WBC 5.1 Hgb 12.7 Hct 41.2 Plt Count 216 Sodium 139 Potassium 4.2 Chloride 105 Carbon Dioxide 29 BUN 13 Creatinine 0.68 Assessment and Plan Assessment Anesthesia Assessment: Chart Reviewed Final Anesthetic Review Family History of Problems with Anesthesia: No History of Problems with Anesthesia: Yes (PONV) Documented by User: Christopher Alan MD 11/05/22 17:53 [facility] Past Medical History Medical History Abdominal pain Allergic rhinitis Anemia BMI 32.0-32.9,adult Drug induced constipation Hemorrhoids with complication History of COVID-19 Hx of hemorrhoids Lumbar degenerative disc disease Rash Functional capacity: independent ambulation Family History Family History Father No problems noted. Mother History of kidney cancer Maternal Grandmother Colon cancer Daughter Asthma Surgical History Surgical History History of esophagogastroduodenoscopy (EGD) History of hemorrhoidectomy (~06/16/22) History of laparoscopic cholecystectomy History of tubal ligation Hx of colonoscopy Social History Social History Household Members: None Housing: House Are you a primary workforce investment act career manager to a significant other at home: No Do you presently have visiting nurse or other home services: No Alcohol intake: never Patient Tobacco Use Status: Never used Tobacco e-Cigarette/Vaping Use: Never Used Second Hand Smoke Exposure: No service: No Current occupational status: unemployed Cognitive needs: No Hearing needs: No Vision needs: No Meds Allergies Allergy/AdvReac Type Severity Reaction Status Date / Time codeine Allergy Intermediate HIVES, Verified 11/05/22 09:53 [From Tylenol-Codeine #3] agitation omeprazole [OMEPRAZOLE] Allergy Intermediate abd Verified 11/05/22 09:53 pain/bloating penicillin G Allergy Intermediate rash Verified 11/05/22 09:53 morphine [MORPHINE] AdvReac Intermediate agitation, Verified 11/05/22 09:53 flips out Home Medications Medication Instructions Recorded Confirmed Last Taken Type sieuha-twlucxuk-lbnclpv 1 cap PO QID 01/29/22 11/05/22 Unknown History 12,000-38,000-60,000 unit capsule,delayed rel (Creon) cetirizine 10 mg tablet 1 tab PO DAILY 11/02/22 11/05/22 Unknown History loratadine 10 mg tablet 1 tab PO DAILY PRN allergies 11/02/22 11/05/22 Unknown History sodium chloride 0.65 % nasal spray 1 spray intranasal DIRECTED 11/02/22 11/05/22 Unknown History aerosol (Saline Nasal) Exam Airway Mallampati Class: III TM Dist: >3cm Neck ROM: Full Loose/Missing/Broken Teeth: Yes Heart: S1,S2 Lungs: b/l breath sounds Assessment and Plan Assessment Anesthesia Assessment: Anesthesia Plan Discussed Final Anesthetic Review NPO: Yes ASA Class: II Final Preanesthetic Review: Meds/Allgs Chart Reviewed, Consent Obtained/Reviewed and Anes Risks/Benef Reviewed Patient Risk: Intermediate Procedure Risk: Intermediate Anesthetic Plan Anesthetic Plan: MAC: Disposition: Standard PACU
[2022-11-05 09:45] VITALS: BMI 30.6
[2022-11-05 09:50] VITALS: BP 134/86; PULSE 80; RESP 16; TEMP 36.6; O2SAT 96
[2022-11-05] MEDS: Lactated Ringers 1,000 ML 100 ML IVCONT (09:57)
--- NOTE | 2022-11-05 11:08 | P.HPSUR_ITS ---
Pre-Procedural Eval Section A Date of Service: 11/05/22 Section B Chief Complaint: reflux disease, abdominal pain Relevant Family History (Specify if Yes): No Relevant Social History: None Present Medications: see Short Stay Collaborative assessment Medical History: Significant History (Abdominal pain Allergic rhinitis Anemia BMI 32.0-32.9,adult Drug induced constipation Hemorrhoids with complication H istory of COVID-19 Hx of hemorrhoids Lumbar degenerative disc disease Rash) History of Previous Operations: Relevant previous surgery/procedure and date(s) (History of esophagogastroduodenoscopy (EGD) History of hemorrhoidectomy (~06/16/22) History of laparoscopic cholecystectomy History of tubal ligation Hx of colonoscopy) Allergies: Allergies Allergy/AdvReac Type Severity Reaction Status Date / Time codeine Allergy Intermediate HIVES, Verified 11/05/22 09:53 [From Tylenol-Codeine #3] agitation omeprazole [OMEPRAZOLE] Allergy Intermediate abd Verified 11/05/22 09:53 pain/bloating penicillin G Allergy Intermediate rash Verified 11/05/22 09:53 morphine [MORPHINE] AdvReac Intermediate agitation, Verified 11/05/22 09:53 flips out Review of Systems Sugical H&P ROS: Negative: Constitution, Cardiovascular, Respiratory, Neurol ogical, Psychiatric, Hem-Onc, Allergic/Immunologic, Gastrointestinal, Genitourinary, Musculoskeletal, Integumentary, Endocrine and Eyes/Ears/Nose/Throat Exam Surgical H&P Exam: Normal: HEENT, Normal: Heart, Normal: Lungs, Normal: Extremities, Normal: Abdomen, Normal: Skin and Normal: Neurological Plan Diagnosis/Plan: Unchanged I have reviewed the history and physical and performed a pertinent physical examination on my patient. No changes have occurred unless specified. Time Spent With Patient Time: Total time managing care of this patient today ____ minutes.
--- NOTE | 2022-11-05 11:44 | W.PM.OPN ---
Operative Note Operative Note Date of Service: 11/05/22 Narrative: Procedure Description: EGD Indication: abdominal pain Anesthesia: MAC FLEXIBLE TRANSORAL UPPER GASTROINTESTINAL ENDOSCOPY UPPER ENDOSCOPY Consent: Indications for the procedure and potential complications of bleeding, perforation, reaction to medications and missed diagnosis were discussed with the patient and informed consent was obtained. Instrument: Olympus GIF H 190 J mid size upper endoscope Monitoring: Vital signs and clinical assessment, continuous EKG monitoring, Pulse oximetry, Carbon Dioxide monitoring and blood pressure monitoring were done throughout the procedure. Procedure: The patient was placed in the left lateral decubitis position and pre-procedure medications were administered and a bite block was placed. The endoscope was inserted into the mouth and advanced under direct vision to the third part of duodenum. A careful inspection was made as the upper endoscope was withdrawn including a retroflexed examination of the proximal stomach; Findings and interventions are described below. Findings: Larynx:normal Esophagus: GE junction at 37 cm, diaphragm hiatus at 37 cm, mild esophagitis, bx taken from GEJ and distal esophagus Stomach: Patchy gastric erythema and granularity. Biopsies were obtained. Grade 2 flap valve on retroflexed examination of the cardia. Duodenum: Normal bulb and descending duodenum, bx taken Intervention: Biopsies as noted above Impression/Findings: gastritis PLAN: await bx results, if H pylori pos then treat
[2022-11-05 11:51] VITALS: BP 111/83; PULSE 102; RESP 18; TEMP 36.2; O2SAT 95
--- NOTE | 2022-11-05 11:52 | PC.NURSE ---
new IV site inserted by dr. cagle.
[2022-11-05 12:06] VITALS: BP 133/72; PULSE 96; RESP 16; TEMP 36.4; O2SAT 99
== END 2022-11-05 13:36 | disposition home or self-care (01) ==
PROVIDERS: PCP Internal Medicine; Visit Provider Internal Medicine Gastroenterology
PROC: 0DJ08ZZ Inspection of Upper Intestinal Tract, Via Natural or Artificial Opening Endoscopic (ICD-10-PCS; CPT 43235; principal; 2022-11-05 10:30)
DX: K29.50 Unspecified chronic gastritis without bleeding (principal); B96.81 Helicobacter pylori [H. pylori] as the cause of diseases classified elsewhere; K21.9 Gastro-esophageal reflux disease without esophagitis; K20.80 Other esophagitis without bleeding; K59.03 Drug induced constipation; K58.9 Irritable bowel syndrome, unspecified; K44.9 Diaphragmatic hernia without obstruction or gangrene; J30.9 Allergic rhinitis, unspecified; D50.9 Iron deficiency anemia, unspecified; K64.8 Other hemorrhoids; Z79.899 Other long term (current) drug therapy; Z88.0 Allergy status to penicillin; Z88.8 Allergy status to other drugs, medicaments and biological substances; Z90.49 Acquired absence of other specified parts of digestive tract; Z86.16 Personal history of COVID-19
CPT/HCPCS: 43239; 88305; 88342; J2250

== ENCOUNTER → 2022-11-20 12:47 | Outpatient (BNVA) | payer OTHER, SELFPAY | PROVIDERS: PCP Internal Medicine; Referring Provider Internal Medicine; Visit Provider Nurse Practitioner Family | DX: K21.9 Gastro-esophageal reflux disease without esophagitis (principal); K58.2 Mixed irritable bowel syndrome; A04.8 Other specified bacterial intestinal infections | CPT/HCPCS: 99212 ==

== ENCOUNTER → 2022-12-21 13:56 | Outpatient (BNVA) | payer OTHER, SELFPAY | PROVIDERS: PCP Internal Medicine; Visit Provider Nurse Practitioner Family | DX: K21.9 Gastro-esophageal reflux disease without esophagitis (principal); K58.2 Mixed irritable bowel syndrome; A04.8 Other specified bacterial intestinal infections | CPT/HCPCS: 99212 ==

== ENCOUNTER 2023-01-15 12:30 | Outpatient (REF) | payer OTHER, SELFPAY | END 2023-01-15 12:31 | disposition home or self-care (01) | LOC: HO.LNP 12:30 | PROVIDERS: Visit Provider Nurse Practitioner Family | DX: K21.9 Gastro-esophageal reflux disease without esophagitis (principal) | CPT/HCPCS: 87338 ==

== ENCOUNTER → 2023-02-03 14:41 | Outpatient (BNVA) | payer OTHER, SELFPAY | PROVIDERS: PCP Internal Medicine; Visit Provider Anesthesiology | DX: M51.36 Other intervertebral disc degeneration, lumbar region (principal); G89.4 Chronic pain syndrome; D25.9 Leiomyoma of uterus, unspecified; N85.00 Endometrial hyperplasia, unspecified; Z98.51 Tubal ligation status; Z90.49 Acquired absence of other specified parts of digestive tract | CPT/HCPCS: 99202 ==

== ENCOUNTER 2023-03-23 10:56 | Outpatient (AMB) | payer OTHER, SELFPAY ==
[2023-03-23 11:05] VITALS: BP 122/70; PULSE 77; BMI 31.6
--- NOTE | 2023-03-23 11:05 | A.OFFVIS_ITS ---
Intake Vital Signs 03/23/23 11:05 Height 5 ft 3 in Weight 178 lb 9.191 oz BMI 31.6 BP 122/70 Blood Pressure Location Lt brachial Position Sitting Pulse 77 Intake Visit Reasons: 3 month fu Intake Note: Vesna presents in office as a est.patient for a 3month f/u for GERD PT CC: pt reports having bloating pt denies any other GI Issues Application Consultant Required: No Accompanied by: Self / Same As Patient Allergies codeine [From Tylenol-Codeine #3] Allergy (Intermediate, Verified 03/23/23 11:06) HIVES, agitation omeprazole [OMEPRAZOLE] Allergy (Intermediate, Verified 03/23/23 11:06) abd pain/bloating penicillin G Allergy (Intermediate, Verified 03/23/23 11:06) rash morphine [MORPHINE] Adverse Reaction (Intermediate, Verified 03/23/23 11:06) agitation, flips out HPI 3 month fu HPI Details LAST VISIT: GERD (gastroesophageal reflux disease) Continue current dose of pantoprazole. Discussed with patient avoiding dietary triggers and late night snacking. Staying upright for minimal 3 hours after meals discussed with her. Will test patient for H pylori to assure eradication of the bacteria IBS (irritable bowel syndrome) Abdominal bloating postprandially most likely related to the food the patient eats. Patient does admit to eat cheese and thinks that are not recommended. Low FODMAP diet discussed with patient again. List of food recommended as well as list of food to avoid given to her. Patient most likely has IBS with predominant knee constipation, however occasionally patient will have loose stools postprandially depending on what she eats. Will send script for Citrucel to take it in the morning and Senokot to take it in the evening. Helicobacter pylori (H. pylori) Will send patient for H pylori testing and treat empirically if positive. Discussed with patient that her should also get tested. I will see her in 3 months, sooner on as needed basis. Patient is agreeable to this plan and verbalizes understanding of instructions. She was given the opportunity to ask questions and all questions answered. ? Thank you for allowing me to participate in her care Plan Orders Orders H pylori Ag Stool Today K21.9 Medications New sennosides (Natural Senna Laxative) 17.2 mg (2 x 8.6 mg) PO BEDTIME 60 tabs 1RF constipation K59.00 Refilled methylcellulose (laxative) (Citrucel) take it with full glass of water 500 mg PO DAILY 90 tabs 2RF K59.00 TODAY'S VISIT Patient is here today day for follow-up. Patient reports that since last time I have seen her she has been doing better. However patient continues to have epigastric discomfort, postprandial abdominal bloating, and occasional postprandial loose stools and then constipation. Patient herself was diagnosed with H pylori in the past treated with quadruple therapy, however patient was unable to finish all of the medication due to upset stomach and migraines. She retested positive again. Patient will need to make sure that her also gets tested and treated. Patient denies dyspepsia, dysphagia or odynophagia. Patient denies melena, hematochezia, unintentional weight loss or ribbon like stools. [facility] Medical History Abdominal pain Allergic rhinitis Anemia BMI 32.0-32.9,adult Drug induced constipation Hemorrhoids with complication History of COVID-19 Hx of hemorrhoids Lumbar degenerative disc disease Rash Surgical History History of esophagogastroduodenoscopy (EGD) History of hemorrhoidectomy (~06/16/22) History of laparoscopic cholecystectomy History of tubal ligation Hx of colonoscopy Family History Father No problems noted. Mother History of kidney cancer Maternal Grandmother Colon cancer Daughter Asthma Social History Household Members: None Housing: House Are you a primary care administrative tech to a significant other at home: No Do you presently have visiting nurse or other home services: No Alcohol intake: never Patient Tobacco Use Status: Never used Tobacco e-Cigarette/Vaping Use: Never Used Second Hand Smoke Exposure: No service: No Current occupational status: unemployed Cognitive needs: No Hearing needs: No Vision needs: No Review of Systems Const Denies weight gain and Denies weight loss ENT Reports no additional complaints, Denies dysphagia and Denies odynophagia Card Reports no additional complaints Resp Reports no additional complaints GI Reports abdominal pain, Denies belching, Denies melena, Reports bloating, Denies change in bowel habits, Reports constipation, Denies dysphagia, Denies e xcessive flatus, Denies dyspepsia, Denies heartburn, Denies diarrhea, Reports loose stools, Denies nausea, Denies odynophagia and Denies vomiting Reports no additional complaints Musc Reports no additional complaints Neuro Reports no additional complaints Psych Reports no additional complaints Endo Reports no additional complaints Physical Exam Vital Signs: Last Vital Signs Pulse 77 03/23/23 11:05 BP 122/70 03/23/23 11:05 BMI result Body Mass Index 31.6 Const General: healthy appearing, no acute distress and well developed Nutritional Appearance: obese Orientation/consciousness: patient oriented x3 HEENT Head: Yes normal to inspection, Yes normocephalic and Yes atraumatic Face and sinus: Yes normal facial exam Mouth: Normal oral and palatal mucosa present Throat: Yes posterior oropharynx normal, Yes tonsils normal and Yes uvula midline Eyes General: appearance normal, both eyes and all related structures Neck Neck: Yes normal visual inspection, Yes full ROM and Yes trachea midline Thyroid: Thyroid normal Resp Effort & Inspection: normal respiratory effort, able to speak in complete sentences, no tracheal deviation and symmetric chest movement Auscultation: clear to auscultation bilaterally Cardio Rate: regular rate Heart sounds: S1 normal heart sound present and S2 normal heart sound present GI Inspection: Yes normal to inspection, No distended and Yes obesity Palpation (GI): Soft to palpation, not firm, nontender and No hepatosplenomegaly present Auscultation: normal bowel sounds General: Yes no CVA tenderness Back/Spine/Pelvis Back: no CVA tenderness Skin General skin exam: elasticity normal, turgor normal and dry skin Neuro General: patient oriented x3 Psych Appearance: grossly normal Mental Status: mental status grossly normal Speech and movement: Normal speech and movement present Affect: normal affect Assessment & Plan Assessment & Plan (1) Chronic abdominal pain: Code(s): R10.9 - Unspecified abdominal pain; G89.29 - Other chronic pain Plan: Patient has on of abdominal cramping. Negative exam for any tenderness or distention. Patient does admit that she does not follow healthy diet. Discussed with her low FODMAP diet and making sure that she drinks plenty fluids so she can start moving her bowels better. (2) GERD (gastroesophageal reflux disease): Code(s): K21.9 - Gastro-esophageal reflux disease without esophagitis Qualifiers: Esophagitis presence: esophagitis presence not specified Qualified Code(s): K21.9 - Gastro-esophageal reflux disease without esophagitis Plan: Continue pantoprazole twice a day now that patient was diagnosed with H pylori. Patient was encouraged to finish all of her treatment this time (3) IBS (irritable bowel syndrome): Code(s): K58.9 - Irritable bowel syndrome without diarrhea Qualifiers: Irritable bowel syndrome type: with both diarrhea and constipation Qualified Code(s): K58.2 - Mixed irritable bowel syndrome Plan: Occasional postprandial loose stools, however patient reports that she is constipated more. Patient reports abdominal bloating postprandially. We ruled out pancreatic insufficiency. Most likely her symptoms are related to the food that she eats. Low FODMAP diet us with patient. We went over food recommended as well as what to avoid. List provided patient again. I will start patient on Linzess to help her eliminate her bowels better. (4) Helicobacter pylori (H. pylori): Code(s): A04.8 - Other specified bacterial intestinal infections Plan: Patient he testing positive for H pylori. Patient did not finish previous treatment, will order quadruple therapy and patient was encouraged to finish all of the treatment. Patient also was encouraged to speak to her about getting tested and treated if positive. I will give her script for Jesús so she can tolerate therapy. I will see patient in 5 weeks, sooner on as needed basis. Patient is agreeable to this plan and verbalizes understanding of instructions. She was given the opportunity to ask questions and all questions answered. Thank you for allowing me to participate in her care Medications: New tetracycline 1,000 mg (2 x 500 mg) PO Q12H 56 caps 0RF A04.8 - Other specified bacterial intestinal infections ondansetron 4 mg PO Q8H PRN 20 tabs 0RF nausea and vomiting R11.0 - Nausea linaclotide (Linzess) 145 mcg PO DAILY 30 caps 2RF Changed From bismuth subsalicylate 2 tabs PO QID 14 days 112 tabs 0RF To bismuth subsalicylate 2 tabs PO QID 112 tabs 0RF 14 days From pantoprazole 20 mg PO BID 2 weeks 28 tabs 0RF To pantoprazole 20 mg PO BID 60 tabs 2RF Refilled metronidazole 500 mg PO TID 42 tabs 0RF 14 days Coding Level of Care Code Est Pt Level 4 (45117) Diagnoses Chronic abdominal pain R10.9; G89.29 GERD (gastroesophageal reflux disease) K21.9 Esophagitis presence: esophagitis presence not specified IBS (irritable bowel syndrome) K58.2 Irritable bowel syndrome type: with both diarrhea and constipation Helicobacter pylori (H. pylori) A04.8 Time Spent (min) 40 Comment 25 minutes spent with patient and additional 15 minutes spent reviewing her records
== END 2023-03-23 11:51 | disposition home or self-care (01) ==
PROVIDERS: Visit Provider Nurse Practitioner Family
DX: R10.9 Unspecified abdominal pain (principal); G89.29 Other chronic pain; K21.9 Gastro-esophageal reflux disease without esophagitis; K58.2 Mixed irritable bowel syndrome; A04.8 Other specified bacterial intestinal infections
CPT/HCPCS: 99214

== ENCOUNTER → 2023-03-23 10:56 | Outpatient (BNVA) | payer OTHER, SELFPAY | PROVIDERS: Visit Provider Nurse Practitioner Family | DX: K21.9 Gastro-esophageal reflux disease without esophagitis (principal); Z90.49 Acquired absence of other specified parts of digestive tract | CPT/HCPCS: 99212 ==

== ENCOUNTER 2023-04-20 14:35 | Outpatient (AMB) | payer OTHER, SELFPAY ==
[2023-04-20 14:37] VITALS: BP 118/80; BMI 32.1
--- NOTE | 2023-04-20 14:37 | A.OFFPC_ITS ---
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 Accompanied by: Significant Other Allergies codeine [From Tylenol-Codeine #3] Allergy (Intermediate, Verified 04/20/23 14:53) HIVES, agitation omeprazole [OMEPRAZOLE] Allergy (Intermediate, Verified 04/20/23 14:53) abd pain/bloating penicillin G Allergy (Intermediate, Verified 04/20/23 14:53) rash morphine [MORPHINE] Adverse Reaction (Intermediate, Verified 04/20/23 14:53) agitation, flips out Medication List - Last Reconciled 04/20/23 by Sejal Watkins MD amitriptyline 25 mg PO BEDTIME PRN 90 days bismuth subsalicylate 2 tabs PO QID 14 days cetirizine 1 tab PO DAILY docusate sodium (Colace) 100 mg PO BID hydrocortisone 2.5% (Anusol-HC) 1 appl NV QID PRN linaclotide (Linzess) 145 mcg PO DAILY [id number] 12,000-38,000 -60,000 unit (Creon) 1 cap PO QID loratadine 1 tab PO DAILY PRN menthol-zinc oxide 0.44-20.6 % (Calmoseptine) 1 appl topical QID PRN methylcellulose (laxative) (Citrucel) 500 mg PO DAILY metronidazole 500 mg PO TID 14 days ondansetron 4 mg PO Q8H PRN oxycodone-acetaminophen 5-325 mg (Percocet) 1 tab PO TID PRN 30 days pantoprazole 20 mg PO BID sennosides (Natural Senna Laxative) 17.2 mg (2 x 8.6 mg) PO BEDTIME sodium chloride 0.65% (Saline Nasal) 1 spray intranasal DIRECTED tetracycline 1,000 mg (2 x 500 mg) PO Q12H Tobacco use date assessed: 02/24/23 Dental Screening Dental Screen Date: 04/20/23 Did you have a dental visit in the last 12 months?: Yes Did you have a dental problem in the last 6 months where you did not have access to dental care?: No Was dental information given to patient?: Patient has dentist HPI HPI Comments History of Present Illness Details This is a 52-year-old female that complains of highs in the left arm, right arm and upper chest that started in February 2023. No chest pain or shortness of breath. No recent travel. No change in detergent. No new food or clothimg. [facility] Medical History Abdominal pain Allergic rhinitis Anemia BMI 32.0-32.9,adult Drug induced constipation Hemorrhoids with complication History of COVID-19 Hx of hemorrhoids Lumbar degenerative disc disease Rash Surgical History History of esophagogastroduodenoscopy (EGD) History of hemorrhoidectomy (~06/16/22) History of laparoscopic cholecystectomy History of tubal ligation Hx of colonoscopy Family History Father No problems noted. Mother History of kidney cancer Maternal Grandmother Colon cancer Daughter Asthma Social History Household Members: None Housing: House Are you a primary career representative to a significant other at home: No Do you presently have visiting nurse or other home services: No Alcohol intake: never Patient Tobacco Use Status: Never used Tobacco e-Cigarette/Vaping Use: Never Used Second Hand Smoke Exposure: No service: No Current occupational status: unemployed Cognitive needs: No Hearing needs: No Vision needs: No Questionnaire Thrive Questionnaire Date Thrive assessed: 02/24/23 TUCKER-7 AMB Questionnaire TUCKER-7 Date TUCKER - 7 assessed: 02/24/23 Source: Developed by Drs. Jose A Wilson, Tami Salcido, Bhvain Smith and colleagues, with an educational sean from [employer]. Review of Systems Const All systems reviewed & are unremarkable except as noted in HPI and below Eyes Reports no additional complaints, Denies change in vision and Denies other visual disturbances Card Denies chest pain at rest, Denies chest pain with activity, Denies edema, Denies irregular heart rhythm, Denies claudication, Denies dyspnea, Denies dyspnea on exertion, Denies orthopnea, Denies paroxysmal nocturnal dyspnea and Denies slow heart rate Resp Denies cough, Denies dyspnea and Denies dyspnea on exertion GI Denies abdominal pain, Denies change in bowel habits, Denies excessive flatus, Denies nausea and Denies vomiting Denies urinary incontinence, Denies urinary hesitancy and Denies urinary urgency Musc Denies abnormal gait, Denies atrophy, Denies deformity and Denies limited range of motion Skin/Breast Denies bleeding lesions, Denies changing lesions and Reports rash Neuro Denies abnormal gait and Denies lack of coordination Aller/Immun Reports other (hives in arms) Physical exam (Primary Care) Vital Signs: Last Vital Signs BP 118/80 04/20/23 14:37 BMI result Body Mass Index 32.1 Tobacco/Smoking Status: Tobacco use Status Tobacco use date assessed 02/24/23 04/20/23 14:40 Patient Tobacco Use Status Never used Tobacco 04/20/23 14:40 Tobacco use type 12/04/21 08:47 e-Cigarette/Vaping Use Never Used 04/20/23 14:40 Thrive Assessment: Date of Thrive Assessment Date Thrive assessed 02/24/23 04/20/23 14:40 Eyes General: appearance normal, both eyes and all related structures Eyelids: Yes eyelids normal Conjunctivae: conjunctivae normal Neck Neck: Yes normal visual inspection and Yes supple Resp Effort & Inspection: normal respiratory effort Auscultation: clear to auscultation bilaterally Cardio Jugular venous distension: no JVD Rate: regular rate Rhythm: regular rhythm Heart sounds: S1 normal heart sound present and S2 normal heart sound present Extrem General: Yes full ROM Assessment and Plan Assessment & Plan (1) Hives: Code(s): L50.9 - Urticaria, unspecified Plan: Start prednisone pack. Start cetirizine. RAST ordered. Orders: Orders Rast Allergen Today L50.9 - Urticaria, unspecified Medications: New prednisone see taper instructions: Take 4 tabs for 2 days, then 3 tabs for 2 days, then 2 tabs for 2 days, then 1 tab for 2 days 10 mg PO DIRECTED 20 tabs 0RF 8 days cetirizine (Allergy Relief (cetirizine)) 10 mg PO DAILY PRN 90 caps 0RF allergy symptoms 90 days Coding Level of Care Code Est Pt Level 3 (38386) Diagnoses Hives L50.9 Time Spent (min) 18
== END 2023-04-20 15:04 | disposition home or self-care (01) ==
PROVIDERS: PCP Internal Medicine; Visit Provider Internal Medicine
DX: L50.9 Urticaria, unspecified (principal)
CPT/HCPCS: 99213

== ENCOUNTER 2023-04-20 15:08 | Outpatient (REF) | payer OTHER, SELFPAY | END 2023-04-20 15:09 | disposition home or self-care (01) | LOC: HO.LAB 15:08 | PROVIDERS: PCP Internal Medicine; Visit Provider Internal Medicine | DX: L50.9 Urticaria, unspecified (principal) | CPT/HCPCS: 36415; 86003 ==

== ENCOUNTER 2023-04-29 11:19 | Outpatient (AMB) | payer OTHER, SELFPAY ==
[2023-04-29 11:21] VITALS: BP 118/70; BMI 31.9
--- NOTE | 2023-04-29 11:21 | MHC.OFFVIS ---
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: No Information Interpreted: non-clinical & clinical Spice Grinder: Spice Grinder Present (Rin MILIAN) Accompanied by: Self / Same As Patient Allergies codeine [From Tylenol-Codeine #3] Allergy (Intermediate, Verified 04/29/23 11:24) HIVES, agitation omeprazole [OMEPRAZOLE] Allergy (Intermediate, Verified 04/29/23 11:24) abd pain/bloating penicillin G Allergy (Intermediate, Verified 04/29/23 11:24) rash morphine [MORPHINE] Adverse Reaction (Intermediate, Verified 04/29/23 11:24) agitation, flips out Post menopausal: Yes HPI HPI Comments History of Present Illness Details Patient is presenting referred from PCP regarding findings on CT scan done in 12/10 showing lobulated uterus consistent with small fibroids and a left 1.5 cm ovarian. Patient had a pelvic ultrasound done in 05/2020 which showed 2 myomas 2 and 3 cm in size respectively. The patient has been menopause over the last year no pelvic pain or pressure. Last co testing was many years ago [facility] Medical History Abdominal pain Allergic rhinitis Anemia BMI 32.0-32.9,adult Drug induced constipation Hemorrhoids with complication History of COVID-19 Hx of hemorrhoids Lumbar degenerative disc disease Rash Surgical History History of esophagogastroduodenoscopy (EGD) History of hemorrhoidectomy (~06/16/22) History of laparoscopic cholecystectomy History of tubal ligation Hx of colonoscopy Family History Father No problems noted. Mother History of kidney cancer Maternal Grandmother Colon cancer Daughter Asthma Social History Household Members: None Housing: House Are you a primary acute care registered nurse to a significant other at home: No Do you presently have visiting nurse or other home services: No Alcohol intake: never Patient Tobacco Use Status: Never used Tobacco e-Cigarette/Vaping Use: Never Used Second Hand Smoke Exposure: No service: No Current occupational status: unemployed Cognitive needs: No Hearing needs: No Vision needs: No Review of Systems Const All systems reviewed & are unremarkable except as noted in HPI and below Reports as per HPI and Reports no additional complaints GI Reports no additional complaints Reports no additional complaints Physical Exam Vital Signs: Last Vital Signs BP 118/70 04/29/23 11:21 BMI result Body Mass Index 31.9 Other: The patient declined today would like to come back for an annual exam , ultrasound follow-up appointment and pelvic exam 2 weeks Assessment & Plan Assessment & Plan (1) Uterine fibroid: Code(s): D25.9 - Leiomyoma of uterus, unspecified Plan: Discussed with the patient the the findings of myomatous uterus on CT scan and previous ultrasound showing 2 myomas, discussed with the patient the risk of Keanu sarcoma , repeat pelvic ultrasound compare the size of the myomas with the previous ultrasound done in 2020 min treat accordingly. Instructions given to patient to schedule a 2 week ultrasound follow-up appointment with in annual exam. All questions answered, the patient verbalized understand Orders: Orders US pelvic and transvaginal Today D25.9 - Leiomyoma of uterus, unspecified Coding Level of Care Code New Pt Level 3 (85344) Diagnoses Uterine fibroid D25.9
== END 2023-04-29 11:39 | disposition home or self-care (01) ==
PROVIDERS: PCP Internal Medicine; Visit Provider Obstetrics & Gynecology
DX: D25.9 Leiomyoma of uterus, unspecified (principal)
CPT/HCPCS: 99203

== ENCOUNTER → 2023-04-29 11:19 | Outpatient (BNVA) | payer OTHER, SELFPAY | PROVIDERS: PCP Internal Medicine; Visit Provider Obstetrics & Gynecology | DX: D25.9 Leiomyoma of uterus, unspecified (principal) | CPT/HCPCS: 99202 ==

== ENCOUNTER 2023-05-06 15:05 | Outpatient (AMB) | payer OTHER, SELFPAY ==
[2023-05-06 15:06] VITALS: BP 132/88; PULSE 85; O2SAT 99; BMI 32.2
--- NOTE | 2023-05-06 15:06 | A.OFFPC_ITS ---
Vital Signs 05/06/23 15:06 Height 5 ft 3 in Weight 182 lb BMI 32.2 BP 132/88 Blood Pressure Location Lt brachial Position Sitting Pulse 85 Pulse Source Pulse Oximeter Temp Source Skin Pulse Oximetry (%) 99 Oxygen Delivery Method Room Air Intake Visit Reasons: Recurring rash Intake Note: pt states reoccurring rash with no relief Allergies codeine [From Tylenol-Codeine #3] Allergy (Intermediate, Verified 05/06/23 15:32) HIVES, agitation omeprazole [OMEPRAZOLE] Allergy (Intermediate, Verified 05/06/23 15:32) abd pain/bloating penicillin G Allergy (Intermediate, Verified 05/06/23 15:32) rash morphine [MORPHINE] Adverse Reaction (Intermediate, Verified 05/06/23 15:32) agitation, flips out Medication List - Last Reconciled 05/06/23 by BABITA Pedersen amitriptyline 25 mg PO BEDTIME PRN 90 days bismuth subsalicylate 2 tabs PO QID 14 days cetirizine 1 tab PO DAILY cetirizine (Allergy Relief (cetirizine)) 10 mg PO DAILY PRN 90 days docusate sodium (Colace) 100 mg PO BID hydrocortisone 2.5% (Anusol-HC) 1 appl [place] QID PRN linaclotide (Linzess) 145 mcg PO DAILY [id number]-nphczwr 12,000-38,000 -60,000 unit (Creon) 1 cap PO QID loratadine 1 tab PO DAILY PRN menthol-zinc oxide 0.44-20.6 % (Calmoseptine) 1 appl topical QID PRN methylcellulose (laxative) (Citrucel) 500 mg PO DAILY ondansetron 4 mg PO Q8H PRN oxycodone-acetaminophen 5-325 mg (Percocet) 1 tab PO TID PRN 30 days pantoprazole 20 mg PO BID sennosides (Natural Senna Laxative) 17.2 mg (2 x 8.6 mg) PO BEDTIME sodium chloride 0.65% (Saline Nasal) 1 spray intranasal DIRECTED Tobacco use date assessed: 05/06/23 Dental Screening Dental Screen Date: 05/06/23 HPI Recurring rash HPI Details Patient is a 52-year-old female who presents today for an office visit due to recurrent pruritic rash on her left arm, right arm, and chest. Patient of Dr. Salcedo. Patient was seen by PCP 03/2023 and was treated with prednisone for 8 days. Patient reports when she was on prednisone, rash cleared up and then she started with rash again after she finished prednisone. Patient also reports taking Claritin daily. She reports rash is itchy and painful. She denies changes in shampoo, body wash, new detergent, new foods, no bug bites. Patient did have allergy testing done 03/2023 which showed allergic to cat and dog dander. Patient denies fever or chills, no difficulty breathing. She is here for an evaluation. [facility] Medical History History of COVID-19 Hemorrhoids with complication BMI 32.0-32.9,adult Rash Hx of hemorrhoids Allergic rhinitis Drug induced constipation Abdominal pain Anemia Lumbar degenerative disc disease Surgical History History of hemorrhoidectomy (~06/16/22) History of esophagogastroduodenoscopy (EGD) Hx of colonoscopy History of laparoscopic cholecystectomy History of tubal ligation Family History Father No problems noted. Mother History of kidney cancer Maternal Grandmother Colon cancer Daughter Asthma Social History Household Members: None Housing: House Are you a primary emergency care attendant to a significant other at home: No Do you presently have visiting nurse or other home services: No Alcohol intake: never Patient Tobacco Use Status: Never used Tobacco e-Cigarette/Vaping Use: Never Used Second Hand Smoke Exposure: No service: No Current occupational status: unemployed Cognitive needs: No Hearing needs: No Vision needs: No Questionnaire Thrive Questionnaire Date Thrive assessed: 02/24/23 AUDIT C Alcohol Use Questionnaire (AUDIT-C) 1. How often do you have a drink containing alcohol?: Never Total Score: 0 Score Reviewed/Action Taken: No TUCKER-7 AMB Questionnaire TUCKER-7 Date TUCKER - 7 assessed: 02/24/23 Source: Developed by Drs. Jose A Wilson, Tami Salcido, Bhavin Smith and colleagues, with an educational sean from [employer]. Review of Systems Const Denies body aches, Denies chills, Denies fever(s) and Denies headache(s) ENT Denies dizziness, Denies otalgia, Denies headache(s), Denies nasal discharge, Denies sinus pain and Denies sore throat Card Denies chest pain, Denies edema, Denies lightheadedness and Denies dyspnea Resp Denies cough, Denies dyspnea and Denies wheezing GI Denies abdominal pain Denies dysuria Musc Denies myalgias Skin/Breast Reports rash Neuro Denies dizziness and Denies headache(s) Aller/Immun Denies wheezing Physical exam (Primary Care) Vital Signs: Last Vital Signs Pulse 85 05/06/23 15:06 BP 132/88 05/06/23 15:06 Pulse Ox 99 05/06/23 15:06 Oxygen Delivery Method Room Air 05/06/23 15:06 BMI result Body Mass Index 32.2 Tobacco/Smoking Status: Tobacco use Status Tobacco use date assessed 05/06/23 05/06/23 15:07 Patient Tobacco Use Status Never used Tobacco 05/06/23 15:07 Tobacco use type 12/04/21 08:47 e-Cigarette/Vaping Use Never Used 05/06/23 15:07 Thrive Assessment: Date of Thrive Assessment Date Thrive assessed 02/24/23 05/06/23 15:07 Const General: cooperative and no acute distress Orientation/consciousness: patient oriented x3 HENMT Head: Yes normocephalic and Yes atraumatic Mouth: oropharynx normal and moist mucous membranes Throat: Yes posterior oropharynx normal Eyes General: appearance normal, both eyes and all related structures Neck Neck: Yes normal visual inspection, Yes full ROM and Yes no lymphadenopathy Resp Effort & Inspection: normal respiratory effort and able to speak in complete sentences Auscultation: clear to auscultation bilaterally, no crackles, no rales, no r honchi and no wheezes Cardio Rate: regular rate Rhythm: regular rhythm Heart sounds: S1 normal heart sound present and S2 normal heart sound present GI Auscultation: normal bowel sounds Skin Other: Left arm with moderate amount of slightly erythematous round raised areas about 5-7mm in diameter, patient reports pruritus Right arm with mild amount of slightly erythematous round raised areas, patient reports pruritus Anterior chest with to areas slightly raised erythematous about 5 mm in diameter, patient reports pruritus No signs of infection noted Neuro General: patient oriented x3 Gait exam (Neuro): Normal gait present Extrem General: Yes full ROM and No edema Assessment and Plan Assessment & Plan (1) Hives: Code(s): L50.9 - Urticaria, unspecified Plan: Please see HPI and physical exam for details. Will treat with prednisone taper for longer period of time, patient reports when she was on prednisone rash cleared up. Patient is to continue Claritin daily p.r.n.. Will refer to binder lockstitch for an evaluation and treatment. Signs and symptoms reviewed when to notify provider or go to the emergency department. Patient agreed with the plan. Orders: Referrals Allergy & Immunology Referral L50.9 - Urticaria, unspecified Medications: New prednisone Take 6 tablets for 3 days then, Take 5 tablets for 3 days then, Take 4 tablets for 3 days then, Take 3 tablets for 3 days then, Take 2 tablets 3 days then, Take 1 tablet 3 days and stop 10 mg PO DAILY 63 tabs 0RF L50.9 - Urticaria, unspecified Coding Level of Care Code Est Pt Level 3 (91459) Diagnoses Hives L50.9
== END 2023-05-06 16:00 | disposition home or self-care (01) ==
PROVIDERS: PCP Internal Medicine; Visit Provider Nurse Practitioner Family
DX: L50.9 Urticaria, unspecified (principal)
CPT/HCPCS: 99213

== ENCOUNTER 2023-05-07 13:48 | Outpatient (REF) | payer OTHER, SELFPAY ==
--- NOTE | ~2023-05-07 | US_ITS ---
EXAMINATION: US PELVIS COMPLETE CLINICAL INFORMATION: Leiomyoma COMPARISON: Pelvic ultrasound 10/23/2019 TECHNIQUE: Transabdominal and transvaginal imaging was performed. FINDINGS: The uterus is of normal size and echogenicity measuring 10.3 x 4.4 x 4.9 cm. The endometrium measures 1.2 cm in thickness. Nabothian cysts in the cervix. A 2.2 x 1.3 x 1.7 cm subserosal myoma in the posterior body of uterus decreased from prior previously 2.3 x 2.3 x 2.5 cm. Both ovaries are of normal size and echogenicity. The right measures 2.5 x 1.8 x 2.4 cm for a volume of 5.6 mL. The left measures 3.6 x 1.7 x 2.1 cm for a volume of 6.7 mL. There is no pelvic free fluid. US/US pelvic and transvaginal IMPRESSION: Endometrium measures 1.2 cm in thickness, recommend correlation with the premenopausal versus postmenopausal state and gynecologic evaluation if warranted. A 2.2 cm subserosal myoma in the posterior body of uterus decreased in size from prior.
== END 2023-05-07 13:49 | disposition home or self-care (01) ==
LOC: HO.US 13:48
PROVIDERS: PCP Internal Medicine; Visit Provider Obstetrics & Gynecology
DX: D25.9 Leiomyoma of uterus, unspecified (principal)
CPT/HCPCS: 76830; 76856

== ENCOUNTER 2023-05-18 11:05 | Outpatient (REF) | payer OTHER, SELFPAY ==
[2023-05-19 03:56] LABS: Syphilis Screen Nonreactive (Nonreactive)
[2023-05-19 04:15] LABS: HIV AB/AG Nonreactive (Nonreactive); HIV Num 1 0.08 S/CO (0.00-0.99); ~HepC Num1 0.06 S/CO (0.00-0.79); ~Hepatitis C Antibody Nonreactive (Nonreactive)
== END 2023-05-18 11:06 | disposition home or self-care (01) ==
LOC: HO.LAB 11:05
PROVIDERS: PCP Internal Medicine; Visit Provider Internal Medicine
DX: Z11.4 Encounter for screening for human immunodeficiency virus [HIV] (principal); Z20.2 Contact with and (suspected) exposure to infections with a predominantly sexual mode of transmission
CPT/HCPCS: 86780; 86803; 87389

== ENCOUNTER 2023-05-25 15:23 | Outpatient (AMB) | payer OTHER, SELFPAY ==
[2023-05-25 15:31] VITALS: BP 138/83; PULSE 97; BMI 32.9
--- NOTE | 2023-05-25 15:31 | MHC.OFFVIS ---
Intake Vital Signs 05/25/23 15:31 Height 5 ft 3 in Weight 185 lb 10.067 oz BMI 32.9 BP 138/83 Blood Pressure Location Lt brachial Position Sitting Pulse 97 Intake Visit Reasons: 5 week follow up N/S last appt Intake Note: Patient presents to in office visit today in follow up of H pylori. CC: Patient reports abdominal bloating. Denies other GI symptoms today. She states she has been in two courses of prednisone since her last visit for an allergic reaction on her left upper arm but she is already done with it. Patient not sure about the names of medications she is currently taking other than the Pantoprazole. 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 Negative exam for any tenderness or distention. Patient does admit that she does not follow healthy diet. Discussed with her low FODMAP diet and making sure that she drinks plenty fluids so she can start moving her bowels better. GERD (gastroesophageal reflux disease) Continue pantoprazole twice a day now that patient was diagnosed with H pylori. Patient was encouraged to finish all of her treatment this time IBS (irritable bowel syndrome) Occasional postprandial loose stools, however patient reports that she is constipated more. Patient reports abdominal bloating postprandially. We ruled out pancreatic insufficiency. Most likely her symptoms are related to the food that she eats. Low FODMAP diet us with patient. We went over food recommended as well as what to avoid. List provided patient again. I will start patient on Linzess to help her eliminate her bowels better. Helicobacter pylori (H. pylori) Patient he testing positive for H pylori. Patient did not finish previous treatment, will order quadruple therapy and patient was encouraged to finish all of the treatment. Patient also was encouraged to speak to her about getting tested and treated if positive. I will give her script for Jesús so she can tolerate therapy. I will see patient in 5 weeks, sooner on as needed basis. Patient is agreeable to this plan and verbalizes understanding of instructions. She was given the opportunity to ask questions and all questions answered. TODAY'S VISIT Patient is here today for follow-up. Patient reports that she continues to have bloating. Occasional epigastric discomfort with dyspepsia, without dysphagia or odynophagia. Treated twice for H pylori. Will need to be retested again. Patient reports that Linzess is not working for her she feels like she is still constipated. Patient is taking pantoprazole. Reports that she is taking Creon with meals and feels like this is helping her. Patient denies melena, hematochezia, unintentional weight loss or ribbon like stools. Patient denies any other GI concerning symptoms. [facility] Medical History History of COVID-19 Hemorrhoids with complication BMI 32.0-32.9,adult Rash Hx of hemorrhoids Allergic rhinitis Drug induced constipation Abdominal pain Anemia Lumbar degenerative disc disease Surgical History History of hemorrhoidectomy (~06/16/22) History of esophagogastroduodenoscopy (EGD) Hx of colonoscopy History of laparoscopic cholecystectomy History of tubal ligation Family History Father No problems noted. Mother History of kidney cancer Maternal Grandmother Colon cancer Daughter Asthma Social History Household Members: None Housing: House Are you a primary career development consultant to a significant other at home: No Do you presently have visiting nurse or other home services: No Alcohol intake: never Patient Tobacco Use Status: Never used Tobacco e-Cigarette/Vaping Use: Never Used Second Hand Smoke Exposure: No service: No Current occupational status: unemployed Cognitive needs: No Hearing needs: No Vision needs: No Review of Systems Const Denies weight gain and Denies weight loss ENT Reports no additional complaints, Denies dysphagia and Denies odynophagia Card Reports no additional complaints Resp Reports no additional complaints GI Denies abdominal pain, Denies belching, Denies melena, Reports bloating, Denies change in bowel habits, Reports constipation, Denies dysphagia, Denies excessive flatus, Denies dyspepsia, Denies heartburn, Denies diarrhea, Denies loose stools, Reports nausea, Denies odynophagia and Denies vomiting Reports no additional complaints Musc Reports no additional complaints Neuro Reports no additional complaints Psych Reports no additional complaints Endo Reports no additional complaints Physical Exam Vital Signs: Last Vital Signs Pulse 97 05/25/23 15:31 BP 138/83 05/25/23 15:31 BMI result Body Mass Index 32.9 Const General: healthy appearing, no acute distress and well developed Nutritional Appearance: obese Orientation/consciousness: patient oriented x3 HEENT Head: Yes normal to inspection, Yes normocephalic and Yes atraumatic Face and sinus: Yes normal facial exam Mouth: Normal oral and palatal mucosa present Throat: Yes posterior oropharynx normal, Yes tonsils normal and Yes uvula midline Eyes General: appearance normal, both eyes and all related structures Neck Neck: Yes normal visual inspection, Yes full ROM and Yes trachea midline Thyroid: Thyroid normal Resp Effort & Inspection: normal respiratory effort, able to speak in complete sentences, no tracheal deviation and symmetric chest movement Auscultation: clear to auscultation bilaterally Cardio Rate: regular rate Heart sounds: S1 normal heart sound present and S2 normal heart sound present GI Inspection: Yes normal to inspection, No distended and Yes obesity Palpation (GI): Soft to palpation, not firm, nontender and No hepatosplenomegaly present Auscultation: normal bowel sounds General: Yes no CVA tenderness Back/Spine/Pelvis Back: no CVA tenderness Skin General skin exam: elasticity normal, turgor normal and dry skin Neuro General: patient oriented x3 Psych Appearance: grossly normal Mental Status: mental status grossly normal Assessment & Plan Assessment & Plan (1) Chronic abdominal pain: Code(s): R10.9 - Unspecified abdominal pain; G89.29 - Other chronic pain (2) GERD (gastroesophageal reflux disease): Code(s): K21.9 - Gastro-esophageal reflux disease without esophagitis Qualifiers: Esophagitis presence: esophagitis presence not specified Qualified Code(s): K21.9 - Gastro-esophageal reflux disease without esophagitis (3) IBS (irritable bowel syndrome): Code(s): K58.9 - Irritable bowel syndrome without diarrhea Qualifiers: Irritable bowel syndrome type: with constipation Qualified Code(s): K58.1 - Irritable bowel syndrome with constipation (4) Helicobacter pylori (H. pylori): Code(s): A04.8 - Other specified bacterial intestinal infections Plan Will test for H pylori. Patient was encouraged to continue her pantoprazole. Patient was encouraged to avoid dietary triggers in late night snacking. Patient will start taking Motegrity daily in see if this will be helpful. Follow-up low FODMAP diet to avoid postprandial abdominal bloating. Patient was also encouraged to increase fluid intake and activity to promote better bowel motility I will see patient in 3 months, sooner on as needed basis. Patient is agreeable to this plan and verbalizes understanding of instructions. She was given the opportunity to ask questions and all questions answered. Thank you for allowing me to participate in her care Orders: Orders H pylori Ag Stool 05/25/23 K21.9 - Gastro-esophageal reflux disease without esophagitis Medications: New prucalopride (Motegrity) 2 mg PO DAILY 30 tabs 3RF K59.04 - Chronic idiopathic constipation Coding Level of Care Code Est Pt Level 4 (15281) Diagnoses Chronic abdominal pain R10.9; G89.29 Gastroesophageal reflux disease, unspecified whether esophagitis present K21.9 Esophagitis presence: esophagitis presence not specified Irritable bowel syndrome with constipation K58.1 Irritable bowel syndrome type: with constipation Helicobacter pylori (H. pylori) A04.8 Time Spent (min) 35 Comment 20 minutes spent with patient and additional 15 minutes spent reviewing her records
== END 2023-05-25 16:29 | disposition home or self-care (01) ==
PROVIDERS: PCP Internal Medicine; Visit Provider Nurse Practitioner Family
DX: R10.9 Unspecified abdominal pain (principal); G89.29 Other chronic pain; K21.9 Gastro-esophageal reflux disease without esophagitis; K58.1 Irritable bowel syndrome with constipation; A04.8 Other specified bacterial intestinal infections
CPT/HCPCS: 99214

== ENCOUNTER → 2023-05-25 15:23 | Outpatient (BNVA) | payer OTHER, SELFPAY | PROVIDERS: PCP Internal Medicine; Visit Provider Nurse Practitioner Family | DX: K58.1 Irritable bowel syndrome with constipation (principal); K21.9 Gastro-esophageal reflux disease without esophagitis; A04.8 Other specified bacterial intestinal infections; G89.29 Other chronic pain; R10.9 Unspecified abdominal pain; Z79.899 Other long term (current) drug therapy | CPT/HCPCS: 99212 ==

== ENCOUNTER 2023-06-03 13:10 | Outpatient (REF) | payer OTHER, SELFPAY ==
[2023-06-08 16:23] LABS: HPV mRNA E6/E7 rflx Not Detected (Not Detected)
== END 2023-06-03 13:11 | disposition home or self-care (01) ==
LOC: HO.LNP 13:10
PROVIDERS: PCP Internal Medicine; Visit Provider Obstetrics & Gynecology
DX: Z01.419 Encounter for gynecological examination (general) (routine) without abnormal findings (principal); D25.9 Leiomyoma of uterus, unspecified
CPT/HCPCS: 87624; 88142; 99396

== ENCOUNTER 2023-06-03 13:10 | Outpatient (AMB) | payer OTHER, SELFPAY ==
--- NOTE | 2023-06-03 13:16 | MHC.OFFVIS ---
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 Information Interpreted: non-clinical & clinical Construction Project Assistant: Construction Project Assistant Present (Rin) Allergies codeine [From Tylenol-Codeine #3] Allergy (Intermediate, Verified 06/03/23 13:22) HIVES, agitation omeprazole [OMEPRAZOLE] Allergy (Intermediate, Verified 06/03/23 13:22) abd pain/bloating penicillin G Allergy (Intermediate, Verified 06/03/23 13:22) rash morphine [MORPHINE] Adverse Reaction (Intermediate, Verified 06/03/23 13:22) agitation, flips out Is last menstrual period known: No HPI HPI Comments History of Present Illness Details Presenting for annual exam. No complaints. Last Pap/HPV was negative in 11/07 Last Mammogram ? Last Colonoscopy was done in 06/12, the recommendation was to repeat in 5 years Last ultrasound done in 05/15 showed the following: The uterus is of normal size and echogenicity measuring 10.3 x 4.4 x 4.9 cm. The endometrium measures 1.2 cm in thickness. Nabothian cysts in the cervix. A 2.2 x 1.3 x 1.7 cm subserosal myoma in the posterior body of uterus decreased from prior previously 2.3 x 2.3 x 2.5 cm. Both ovaries are of normal size and echogenicity. The right measures 2.5 x 1.8 x 2.4 cm for a volume of 5.6 mL. The left measures 3.6 x 1.7 x 2.1 cm for a volume of 6.7 mL. There is no pelvic free fluid The patient had a pelvic ultrasound done in 05/2020 which showed 2 myomas 2 and 3 cm in size respectively. The patient has been menopause over the last year with no pelvic pain or pressure. [facility] Medical History History of COVID-19 Hemorrhoids with complication BMI 32.0-32.9,adult Rash Hx of hemorrhoids Allergic rhinitis Drug induced constipation Abdominal pain Anemia Lumbar degenerative disc disease Surgical History History of hemorrhoidectomy (~06/16/22) History of esophagogastroduodenoscopy (EGD) Hx of colonoscopy History of laparoscopic cholecystectomy History of tubal ligation Family History Father No problems noted. Mother History of kidney cancer Maternal Grandmother Colon cancer Daughter Asthma Social History Household Members: None Housing: House Are you a primary long term care phlebotomist to a significant other at home: No Do you presently have visiting nurse or other home services: No Alcohol intake: never Patient Tobacco Use Status: Never used Tobacco e-Cigarette/Vaping Use: Never Used Second Hand Smoke Exposure: No service: No Current occupational status: unemployed Cognitive needs: No Hearing needs: No Vision needs: No Female Reproductive History Menstrual control method: permanent sterilization Total pregnancies: 5 Full term: 4 Number of Living Children: 4 Ab spontaneous: 1 Date of last pap smear: 12/23/17 (negative) Review of Systems Const All systems reviewed & are unremarkable except as noted in HPI and below Card Reports as per HPI Resp Reports as per HPI GI Reports as per HPI and Reports no additional complaints Reports as per HPI Physical Exam Vital Signs: Last Vital Signs BP 110/74 06/03/23 13:20 BMI result Body Mass Index 32.9 Const General: cooperative, healthy appearing and comfortable Chest Chest palpation & inspection: normal inspection of the chest and normal palpation of entire chest wall Breast/axilla inspection: normal inspection of the breasts and normal inspection of the axillae Breast/axilla palpation: normal palpation of the breasts, normal palpation of the axillae and no axillary lymphadenopathy Resp Effort & Inspection: normal respiratory effort Auscultation: clear to auscultation bilaterally Percussion: percussion normal Cardio Palpation: normal PMI Rate: regular rate Rhythm: regular rhythm Heart sounds: no murmurs and no rubs Peripheral pulses: Peripheral pulses 2+ throughout GI Inspection: Yes normal to inspection Palpation (GI): Soft to palpation, nontender, no guarding, not rigid and No hepatosplenomegaly present Percussion: Yes normal to percussion Auscultation: normal bowel sounds Rectal Exam - Female: deferred General: Yes bladder normal to palpation External Female Exam: No lesion Speculum Exam - Vagina: normal appearance of the vagina, normal palpation, normal vaginal discharge and not erythematous Speculum Exam - Cervix: normal appearance of the cervix and normal palpation Bimanual exam- vagina & uterus: normal bimanual exam, normal palpation, uterine size normal, bladder normal to palpation, consistency normal and normal palpation Bimanual Exam- Adnexa, other: normal adnexae, no masses and no tenderness Assessment & Plan Assessment & Plan (1) Well woman exam: Code(s): Z01.419 - Encounter for gynecological examination (general) (routine) without abnormal findings Plan: Co testing done. Counseled the patient about the recommended dietary allowance of 1200 mg of Calcium & 600 IU of vitamin D. Mammogram ordered. The patient was instructed to perform monthly self-breast exams and schedule annual exam in a year. All questions answered and the patient verbalized understanding. (2) Uterine fibroid: Code(s): D25.9 - Leiomyoma of uterus, unspecified Plan: Discussed with the patient the findings on pelvic ultrasound & the risk of myosarcoma; discussed with the patient the options of treatment including expectant management versus hysterectomy; the pros and cons, risks benefits of each approach were discussed with the patient including the fact that in cases of myosarcoma, surgical treatment can lead to early diagnosis and positively affects the prognosis; after further discussion, the patient decided to proceed with expectant management. Will repeat pelvic ultrasound periodically. Instructions given to patient to call in case any of the following occurs: pressure symptoms, abnormal uterine bleeding, pelvic pain; and to schedule a future office follow-up appointment for reassessment and to order a repeat ultrasound . All questions answered, the patient verbalized understanding and agreed with the plan . Orders: Orders MM screening mammo BI Today Z12.31 - Encounter for screening mammogram for malignant neoplasm of breast Coding Level of Care Code Est Pt Prev Care 40-64y(02693) Diagnoses Well woman exam Z01.419 Uterine fibroid D25.9
[2023-06-03 13:20] VITALS: BP 110/74; BMI 32.9
== END 2023-06-03 13:37 | disposition home or self-care (01) ==
PROVIDERS: PCP Internal Medicine; Visit Provider Obstetrics & Gynecology
DX: Z01.419 Encounter for gynecological examination (general) (routine) without abnormal findings (principal); D25.9 Leiomyoma of uterus, unspecified
CPT/HCPCS: 99396

== ENCOUNTER 2023-06-14 12:32 | Outpatient (REF) | payer OTHER, SELFPAY | END 2023-06-14 12:33 | disposition home or self-care (01) | LOC: HO.LNP 12:32 | PROVIDERS: Visit Provider Nurse Practitioner Family | DX: K21.9 Gastro-esophageal reflux disease without esophagitis (principal) | CPT/HCPCS: 87338 ==

== ENCOUNTER 2023-07-08 12:23 | Outpatient (AMB) | payer OTHER, SELFPAY ==
--- NOTE | 2023-07-08 12:41 | A.OFFPC_ITS ---
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: No Accompanied by: Self / Same As Patient Allergies codeine [From Tylenol-Codeine #3] Allergy (Intermediate, Verified 07/08/23 12:51) HIVES, agitation omeprazole [OMEPRAZOLE] Allergy (Intermediate, Verified 07/08/23 12:51) abd pain/bloating penicillin G Allergy (Intermediate, Verified 07/08/23 12:51) rash morphine [MORPHINE] Adverse Reaction (Intermediate, Verified 07/08/23 12:51) agitation, flips out Medication List - Last Reconciled 07/08/23 by Sejal Watkins MD amitriptyline 25 mg PO BEDTIME PRN 90 days bismuth subsalicylate 2 tabs PO QID 14 days cetirizine 1 tab PO DAILY cetirizine (Allergy Relief (cetirizine)) 10 mg PO DAILY PRN 90 days docusate sodium (Colace) 100 mg PO BID hydrocortisone 2.5% (Anusol-HC) 1 appl LA QID PRN linaclotide (Linzess) 145 mcg PO DAILY aedfjh-tuhahqcp-jgoozuq 12,000-38,000 -60,000 unit (Creon) 1 cap PO QID loratadine 1 tab PO DAILY PRN menthol-zinc oxide 0.44-20.6 % (Calmoseptine) 1 appl topical QID PRN methylcellulose (laxative) (Citrucel) 500 mg PO DAILY ondansetron 4 mg PO Q8H PRN oxycodone-acetaminophen 5-325 mg (Percocet) 1 tab PO TID PRN 30 days pantoprazole 20 mg PO BID prucalopride (Motegrity) 2 mg PO DAILY sennosides (Natural Senna Laxative) 17.2 mg (2 x 8.6 mg) PO BEDTIME sodium chloride 0.65% (Saline Nasal) 1 spray intranasal DIRECTED Tobacco use date assessed: 05/06/23 Dental Screening Dental Screen Date: 07/08/23 Did you have a dental visit in the last 12 months?: Yes Did you have a dental problem in the last 6 months where you did not have access to dental care?: No Was dental information given to patient?: Patient has dentist HPI HPI Comments History of Present Illness Details This is a 52-year-old female that comes for her physical exam. Has a mammogram scheduled for 07/13/2023. Last Pap smear was May 2023 and was normal with HPV negative. Colonoscopy done 2020 was normal. No chest pain or shortness of breath. [facility] Medical History History of COVID-19 Hemorrhoids with complication BMI 32.0-32.9,adult Rash Hx of hemorrhoids Allergic rhinitis Drug induced constipation Abdominal pain Anemia Lumbar degenerative disc disease Surgical History History of hemorrhoidectomy (~06/16/22) History of esophagogastroduodenoscopy (EGD) Hx of colonoscopy History of laparoscopic cholecystectomy History of tubal ligation Family History Father No problems noted. Mother History of kidney cancer Maternal Grandmother Colon cancer Daughter Asthma Social History Household Members: None Housing: House Are you a primary continuum of care manager to a significant other at home: No Do you presently have visiting nurse or other home services: No Alcohol intake: never Patient Tobacco Use Status: Never used Tobacco e-Cigarette/Vaping Use: Never Used Second Hand Smoke Exposure: No service: No Current occupational status: unemployed Cognitive needs: No Hearing needs: No Vision needs: No Questionnaire Thrive Questionnaire Date Thrive assessed: 02/24/23 TUCKER-7 AMB Questionnaire TUCKER-7 Date TUCKER - 7 assessed: 02/24/23 Source: Developed by Drs. Jose A Wilson, Tami Salcido, Bhavin Smith and colleagues, with an educational sean from [employer]. Review of Systems Const All systems reviewed & are unremarkable except as noted in HPI and below Eyes Reports no additional complaints, Denies change in vision and Denies other visual disturbances Card Denies chest pain at rest, Denies chest pain with activity, Denies edema, Denies irregular heart rhythm, Denies claudication, Denies dyspnea, Denies dyspnea on exertion, Denies orthopnea, Denies paroxysmal nocturnal dyspnea and Denies slow heart rate Resp Denies cough, Denies dyspnea and Denies dyspnea on exertion GI Denies abdominal pain, Denies change in bowel habits, Denies excessive flatus, Denies nausea and Denies vomiting Denies urinary incontinence, Denies urinary hesitancy and Denies urinary urgency Musc Denies abnormal gait, Denies atrophy, Denies deformity and Denies limited range of motion Skin/Breast Denies bleeding lesions, Denies changing lesions and Denies rash Neuro Denies abnormal gait and Denies lack of coordination Physical exam (Primary Care) Vital Signs: Last Vital Signs Pulse 89 07/08/23 12:43 BP 130/82 07/08/23 12:43 Pulse Ox 99 07/08/23 12:43 Oxygen Delivery Method Room Air 07/08/23 12:43 BMI result Body Mass Index 32.6 Tobacco/Smoking Status: Tobacco use Status Tobacco use date assessed 05/06/23 07/08/23 12:45 Patient Tobacco Use Status Never used Tobacco 07/08/23 12:45 Tobacco use type 12/04/21 08:47 e-Cigarette/Vaping Use Never Used 07/08/23 12:45 Thrive Assessment: Date of Thrive Assessment Date Thrive assessed 02/24/23 07/08/23 12:45 Const Orientation/consciousness: patient oriented x3 HENMT Head: Yes normal to inspection, Yes normocephalic and Yes atraumatic Ears: external ears normal Eyes General: appearance normal, both eyes and all related structures Eyelids: Yes eyelids normal Conjunctivae: conjunctivae normal Neck Neck: Yes normal visual inspection and Yes supple Resp Effort & Inspection: normal respiratory effort Auscultation: clear to auscultation bilaterally Cardio Jugular venous distension: no JVD Rate: regular rate Rhythm: regular rhythm Heart sounds: S1 normal heart sound present and S2 normal heart sound present GI Inspection: Yes normal to inspection Palpation (GI): Soft to palpation and nontender Auscultation: normal bowel sounds Skin General skin exam: no rashes or lesions noted Neuro General: patient oriented x3 and no focal motor deficits Extrem General: Yes full ROM Psych Appearance: grossly normal Office Procedures Flu Questionnaire Does the patient have a severe egg allergy?: No Immunizations flu vacc [id number] 6mos up(PF) 60 mcg(15 mcgx4)/0.5 mL IM syringe Performing Provider: Sejal Watkins MD [facility] Documented (not given) by: Lul Alvarez Hanane on 07/08/23 12:46 Reason Not Given: Patient Refused Assessment and Plan Assessment & Plan Orders: Orders Lipid Panel Today E78.5 - Hyperlipidemia, unspecified, Z00.00 - Encounter for general adult medical examination without abnormal findings Comprehensive [place]. Panel Fast Today Z00.00 - Encounter for general adult medica l examination without abnormal findings Complete Blood Count Auto Diff Today D64.9 - Anemia, unspecified Vitamin D 25-OH Total Today E55.9 - Vitamin D deficiency, unspecified IRON PROFILE Today D64.9 - Anemia, unspecified Influenza [id number] Immunization Today Z23 - Encounter for immunization Medications: New fluconazole 150 mg PO Q3D 2 tabs 0RF Coding Level of Care Code Est Pt Prev Care 40-64y(70678) Time Spent (min) 33
[2023-07-08 12:43] VITALS: BP 130/82; PULSE 89; O2SAT 99; BMI 32.6
== END 2023-07-08 13:05 | disposition home or self-care (01) ==
PROVIDERS: Visit Provider Internal Medicine
DX: Z00.00 Encounter for general adult medical examination without abnormal findings (principal)
CPT/HCPCS: 99396

== ENCOUNTER 2023-07-13 14:33 | Outpatient (REF) | payer OTHER, SELFPAY ==
--- NOTE | ~2023-07-13 | MM_ITS ---
EXAMINATION: MM SCREENING DIGITAL BREAST TOMOSYNTHESIS, BILATERAL CLINICAL INFORMATION: Screening. Asymptomatic. COMPARISON: Mammography: 06/22/2018, 04/23/2017, 09/18/2015, 07/06/2014. TECHNIQUE: Digital breast tomosynthesis is performed in both the craniocaudal and mediolateral oblique views along with computer-aided detection (CAD). Synthesized 2D images are generated from the tomosynthesis. FINDINGS: There are scattered areas of fibroglandular density (ACR BI-RADS breast composition Category b). There are no suspicious masses, suspicious grouped calcifications, or areas of architectural distortion in either breast. The parenchymal pattern is stable from prior exams. The right breast remains slightly denser than the left. MM/MM tomosynthesis screening BI IMPRESSION: No mammographic evidence of malignancy. ASSESSMENT: BI-RADS BI-RADS 1 - Negative RECOMMENDATION: Routine annual mammography screening. 1 year F/U This examination should not preclude the clinical evaluation of a suspicious palpable abnormality. This patient's information was entered into a reminder system with a target due date for their next mammogram.
== END 2023-07-13 14:34 | disposition home or self-care (01) ==
LOC: HO.MAMMO 14:33
PROVIDERS: PCP Internal Medicine; Visit Provider Internal Medicine
DX: Z12.31 Encounter for screening mammogram for malignant neoplasm of breast (principal)
CPT/HCPCS: 77063; 77067

== ENCOUNTER → 2023-07-13 14:45 | Outpatient (BNV) | payer OTHER, SELFPAY | PROVIDERS: PCP Internal Medicine; Visit Provider Radiology Diagnostic Radiology | DX: Z12.31 Encounter for screening mammogram for malignant neoplasm of breast (principal) | CPT/HCPCS: 77063; 77067 ==

== ENCOUNTER 2023-08-13 14:55 | Emergency (ER) | payer OTHER, SELFPAY ==
--- NOTE | ~2023-08-13 | XR_ITS ---
EXAMINATION: XR CHEST CLINICAL INFORMATION: Chest pain. COMPARISON: 12/13/2021 TECHNIQUE: 2 views of the chest were obtained. FINDINGS: No significant abnormality is noted involving the heart, lungs, mediastinum, bony thorax or soft tissues. XR/XR chest 2V IMPRESSION: Unremarkable examination.
--- NOTE | 2023-08-13 14:56 | ECG_ITS ---
Test Reason : CHEST PAIN Blood Pressure : / mmHG Vent. Rate : 097 BPM Atrial Rate : 097 BPM P-R Int : 128 ms QRS Dur : 070 ms QT Int : 344 ms P-R-T Axes : 055 021 004 degrees QTc Int : 436 ms Normal sinus rhythm Normal ECG When compared with ECG of 14-AUG-2016 13:31, No significant change was found Referred By: Morelia Acosta Electronically Signed By:PEREZ GILBERT MD
--- NOTE | 2023-08-13 15:02 | ED.GENADULT ---
HPI - General Adult General Chief complaint: Chest Pain Stated complaint: chest pain Time Seen by Provider: 08/13/23 16:19 Related Data Home Medications Medication Instructions Recorded Confirmed [id number] 1 cap PO QID 01/29/22 07/08/23 12,000-38,000-60,000 unit capsule,delayed rel (Creon) loratadine 10 mg tablet 1 tab PO DAILY PRN allergies 11/02/22 07/08/23 sodium chloride 0.65 % nasal spray 1 spray intranasal DIRECTED 11/02/22 07/08/23 aerosol (Saline Nasal) Previous Rx's Medication Instructions Recorded docusate sodium 100 mg capsule 100 mg PO BID #60 caps 06/16/22 (Colace) menthol 0.44 %-zinc oxide 20.6 % 1 appl topical QID PRN anal 06/17/22 topical ointment (Calmoseptine) burning #113 grams methylcellulose (laxative) 500 mg 500 mg PO DAILY #90 tabs 12/21/22 tablet (Citrucel) sennosides 8.6 mg tablet (Natural 17.2 mg (2 x 8.6 mg) PO BEDTIME 12/21/22 Senna Laxative) constipation #60 tabs bismuth subsalicylate 262 mg 2 tab PO QID 14 days #112 tabs 03/23/23 chewable tablet linaclotide 145 mcg capsule 145 mcg PO DAILY #30 caps 03/23/23 (Linzess) ondansetron 4 mg disintegrating 4 mg PO Q8H PRN nausea and 03/23/23 tablet vomiting #20 tabs cetirizine 10 mg capsule (Allergy 10 mg PO DAILY PRN allergy 04/20/23 Relief (cetirizine)) symptoms 90 days #90 caps prucalopride 2 mg tablet 2 mg PO DAILY #30 tabs 05/25/23 (Motegrity) amitriptyline 25 mg tablet 25 mg PO BEDTIME PRN insomnia 90 06/06/23 days #90 tabs pantoprazole 20 mg tablet,delayed 20 mg PO BID #180 tabs 06/18/23 release fluconazole 150 mg tablet 150 mg PO Q3D 2 doses #2 tabs 07/12/23 cetirizine 10 mg tablet 10 mg PO DAILY PRN for allergies 07/20/23 90 days #90 tabs hydrocortisone 2.5 % topical cream 1 appl [place] QID PRN hemorrhoids #30 08/13/23 with perineal applicator grams (Anusol-HC) oxycodone-acetaminophen 5 mg-325 1 tab PO TID PRN pain 30 days #90 08/13/23 mg tablet (Percocet) tabs Allergies Allergy/AdvReac Type Severity Reaction Status Date / Time codeine Allergy Intermediate HIVES, Verified 07/08/23 12:51 [From Tylenol-Codeine #3] agitation omeprazole [OMEPRAZOLE] Allergy Intermediate abd Verified 07/08/23 12:51 pain/bloating penicillin G Allergy Intermediate rash Verified 07/08/23 12:51 morphine [MORPHINE] AdvReac Intermediate agitation, Verified 07/08/23 12:51 flips out [facility] Past Medical History Medical History History of COVID-19 Hemorrhoids with complication BMI 32.0-32.9,adult Rash Hx of hemorrhoids Allergic rhinitis Drug induced constipation Abdominal pain Anemia Lumbar degenerative disc disease Surgical History History of hemorrhoidectomy (~06/16/22) History of esophagogastroduodenoscopy (EGD) Hx of colonoscopy History of laparoscopic cholecystectomy History of tubal ligation Family History Family History Father No problems noted. Mother History of kidney cancer Maternal Grandmother Colon cancer Daughter Asthma Social History Social History Household Members: None Housing: House Are you a primary foster care social worker to a significant other at home: No Do you presently have visiting nurse or other home services: No Alcohol intake: never Patient Tobacco Use Status: Never used Tobacco e-Cigarette/Vaping Use: Never Used Second Hand Smoke Exposure: No Advance Directives: No Advance Directives Information Provided: No service: No Current occupational status: unemployed Cognitive needs: No Hearing needs: No Vision needs: No Physical Exam ED Vital Signs: Vital Signs - 24 hr 08/13/23 15:03 08/13/23 16:12 Temperature 98.9 F Pulse Rate 82 70 Respiratory Rate 18 18 Blood Pressure 120/88 130/77 Pulse Oximetry 100 100 Oxygen Delivery Method Room Air Room Air BMI result Body Mass Index 32.4 Course Course Course Narrative: RME performed by Morelia Acosta PA-C. Patient is a 52 year old assigned female at presenting to the emergency department with chest pain, nausea, and vomiting. Labs, imaging, and swabs ordered. Patient placed back in the waiting room pending room availability and results. Medical Decision Making Lab Data 08/13/23 15:27 08/13/23 15:27 Labs: Lab Results 08/13/23 08/13/23 Range/Units 15:27 15:33 WBC 5.5 (4.8-10.8) X10*3/uL RBC 5.71 H (4.20-5.50) X10*6/uL Hgb 14.5 (12.0-16.0) g/dl Hct 46.2 (37.0-47.0) % MCV 80.9 (80.0-98.0) fL MCH 25.4 L (27.0-33.0) pg MCHC 31.4 (31.0-35.0) g/dl RDW 14.5 (11.0-16.0) % Plt Count 224 (160-400) X10*3/uL MPV 9.6 (9.4-12.3) fL Immature Gran % (Auto) 0.2 (0.0-0.4) % Neut % (Auto) 53.4 (45-73) % Lymph % (Auto) 34.2 (20-40) % [place] % (Auto) 11.1 H (2-11) % Eos % (Auto) 0.9 (0-4) % Baso % (Auto) 0.2 (0-2) % Lymph # (Auto) 1.9 (1.2-4.9) X10*3/uL [place] # (Auto) 0.6 (0.1-1.2) X10*3/uL Eos # (Auto) 0.1 (0.0-0.4) X10*3/uL Baso # (Auto) 0.0 (0.0-0.2) X10*3/uL Abs Immat Gran (auto) 0.01 (0.00-0.03) X10*3/uL Absolute Neuts (auto) 3.0 (2.0-8.3) x10*3/uL Absolute Nucleated RBC 0.000 (0.0-0.012) X10*3/uL Nucleated RBC % (auto) 0.0 (0.0-0.2) /100WBC PT 11.8 (11.1-13.3) SEC INR 1.0 (0.9-1.1) APTT 38.9 H (26.0-36.4) SEC Sodium 143 (135-145) mmol/L Potassium 3.6 D (3.3-5.1) mmol/L Chloride 108 (96-108) mmol/L Carbon Dioxide 25 (22-29) mmol/L Anion Gap 14 (12-20) BUN 14 (9-16) mg/dL Creatinine 0.75 (0.5-1.4) mg/dL Estim Creat Clear Calc 90.4 Estimated GFR > 60 Random Glucose 101 (60-115) mg/dL Calcium 10.0 (8.4-10.2) mg/dL Magnesium 2.2 (1.6-2.6) mg/dL Total Bilirubin 0.5 (0.0-1.0) mg/dL AST 34 H (5-31) U/L ALT 60 H (0-31) U/L Alkaline Phosphatase 73 (39-117) U/L Troponin I High Sens < 2.7 (<3.5-17.0) ng/L Total Protein 7.4 (6.5-8.0) g/dL Albumin 3.9 (3.5-5.0) g/dL Urine Color Yellow Urine Appearance Clear Urine pH 5.5 (5.0-9.0) Ur Specific [place] 1.025 (1.005-1.025) Urine Protein Negative (Neg-Trace) mg/dL Urine Glucose (UA) Negative (Negative) mg/dL Urine Ketones Trace (Negative) mg/dL Urine Blood Negative (Negative) Urine Nitrite Negative (Negative) Ur Leukocyte Esterase Small (1+) H (Negative) Urine RBC 0-2 (0-2) /HPF Urine WBC 6-10 H (0-5) /HPF Ur Squamous Epith Cells 6-10 (0-2) /HPF Urine Bacteria Trace (None Seen) Hyaline Casts 0-2 (0-2) /LPF Urine Opiates Screen Not Detected (Not Detect) Urine Fentanyl Screen Not Detected (Not Detect) Ur Barbiturates Screen Not Detected (Not Detect) Ur Phencyclidine Scrn Not Detected (Not Detect) Ur Amphetamines Screen Not Detected (Not Detect) U Benzodiazepines Scrn Not Detected (Not Detect) Urine Cocaine Screen POSITIVE H (Not Detect) U Marijuana (THC) Screen Not Detected (Not Detect) Influenza Type A (PCR) NEGATIVE (Negative) Influenza Type B (PCR) NEGATIVE (Negative) RSV RNA Qual (PCR) NEGATIVE (Negative) SARS-CoV-2 RNA (RT-PCR) NEGATIVE (Negative) Discharge Plan Discharge Prescriptions: No Action menthol-zinc oxide [Calmoseptine] 0.44-20.6 % ointment 1 appl topical QID PRN (Reason: anal burning) Qty: 113 0RF amitriptyline 25 mg tablet 25 mg PO BEDTIME PRN (Reason: insomnia) 90 Days Qty: 90 0RF pantoprazole 20 mg tablet,delayed release (DR/EC) 20 mg PO BID Qty: 180 3RF fluconazole 150 mg tablet 150 mg PO Q3D Qty: 2 0RF cetirizine 10 mg tablet 10 mg PO DAILY PRN (Reason: for allergies) 90 Days Qty: 90 0RF hydrocortisone [Anusol-HC] 2.5 % cream with perineal applicator 1 appl [place] QID PRN (Reason: hemorrhoids) Qty: 30 2RF oxycodone-acetaminophen [Percocet] 5-325 mg tablet 1 tab PO TID PRN (Reason: pain) 30 Days Qty: 90 0RF Rx Instructions: Partial Fill upon patient request. Creon 12,000-38,000 -60,000 unit capsule,delayed release(DR/EC) 1 cap PO QID loratadine 10 mg tablet 1 tab PO DAILY PRN (Reason: allergies) Saline Nasal 0.65 % aerosol,spray 1 spray intranasal DIRECTED docusate sodium [Colace] 100 mg capsule 100 mg PO BID Qty: 60 2RF Allergy Relief (cetirizine) 10 mg capsule 10 mg PO DAILY PRN (Reason: allergy symptoms) 90 Days Qty: 90 0RF bismuth subsalicylate 262 mg tablet,chewable 2 tab PO QID 14 Days Qty: 112 0RF ondansetron 4 mg tablet,disintegrating 4 mg PO Q8H PRN (Reason: nausea and vomiting) Qty: 20 0RF Linzess 145 mcg capsule 145 mcg PO DAILY Qty: 30 2RF Citrucel 500 mg tablet 500 mg PO DAILY Qty: 90 2RF Rx Instructions: take it with full glass of water sennosides [Natural Senna Laxative] 8.6 mg tablet 17.2 mg PO BEDTIME Qty: 60 1RF Motegrity 2 mg tablet 2 mg PO DAILY Qty: 30 3RF
[2023-08-13 15:03] VITALS: BP 120/88; PULSE 82; RESP 18; TEMP 37.2; O2SAT 100; BMI 32.4
[2023-08-13 15:31] LABS: MANUAL DIFF FLAG NO
[2023-08-13 15:34] LABS: Basophils Percent Auto 0.2 % (0-2); Eosinophils Absolute Auto 0.1 X10*3/uL (0.0-0.4); Eosinophils Percent Auto 0.9 % (0-4); Hematocrit 46.2 % (37.0-47.0); Hemoglobin 14.5 g/dl (12.0-16.0); Imm Gran Abs Auto 0.01 X10*3/uL (0.00-0.03); Imm Gran Pct Auto 0.2 % (0.0-0.4); Lymphocytes Absolute Auto 1.9 X10*3/uL (1.2-4.9); Lymphocytes Percent Auto 34.2 % (20-40); Mean Corpuscular HGB Conc 31.4 g/dl (31.0-35.0); Mean Corpuscular Hemoglobin 25.4 pg (27.0-33.0); Mean Corpuscular Volume 80.9 fL (80.0-98.0); Mean Platelet Volume 9.6 fL (9.4-12.3); Monocytes Absolute Auto 0.6 X10*3/uL (0.1-1.2); Monocytes Percent Auto 11.1 % (2-11); Neutrophils Percent Auto 53.4 % (45-73); Platelet Count 224 X10*3/uL (160-400); Red Blood Count 5.71 X10*6/uL (4.20-5.50); Red Cell Distribution Width 14.5 % (11.0-16.0); White Blood Count 5.5 X10*3/uL (4.8-10.8)
[2023-08-13 15:38] LABS: Prothrombin Time 11.8 SEC (11.1-13.3)
[2023-08-13 15:41] LABS: Partial Thromboplastin Time 38.9 SEC (26.0-36.4)
[2023-08-13 15:48] LABS: Appearance Urine Clear; Color Urine Yellow; Glucose Urine UA Negative (Negative); Leukocyte Esterase Urine Small (1+) (Negative); Nitrite Urine Negative (Negative); PH 5.5 (5.0-9.0); Specific Gravity - Urine 1.025 (1.005-1.025); UMIC TRIGGER UACC YES; Urine Blood Negative (Negative); Urine Ketones Trace mg/dL (Negative); Urine Protein Negative (Neg-Trace)
[2023-08-13 15:50] LABS: Alanine Aminotransferase 60 U/L (0-31); Albumin Level 3.9 g/dL (3.5-5.0); Alkaline Phosphatase 73 U/L (39-117); Anion Gap 14 (12-20); Aspartate Amino Transferase 34 U/L (5-31); Bilirubin Total 0.5 mg/dL (0.0-1.0); Blood Urea Nitrogen 14 mg/dL (9-16); Carbon Dioxide 25 mmol/L (22-29); Chloride 108 mmol/L (96-108); Creatinine Clr Calc Pharmacy 90.4; Estimated Glomerular Filt Rate > 60; Glucose Random 101 mg/dL (60-115); Magnesium 2.2 mg/dL (1.6-2.6); Potassium 3.6 mmol/L (3.3-5.1); Sodium 143 mmol/L (135-145); Total Protein 7.4 g/dL (6.5-8.0)
[2023-08-13 15:50] LABS: Bacteria Urine Trace (None Seen); Hyaline Casts Urine 0-2 /LPF (0-2); RBC Urine 0-2 /HPF (0-2); UACC Culture Trigger YES
[2023-08-13 15:53] LABS: Amphetamine Screen Urine Not Detected (Not Detect); Barbiturates, Urine Not Detected (Not Detect); Benzodiazepines Screen Urine Not Detected (Not Detect); Cannabinoid Screen Urine Not Detected (Not Detect); Cocaine Screen Urine POSITIVE (Not Detect); Fentanyl, urine Not Detected (Not Detect); Opiate Screen Urine Not Detected (Not Detect); Phencyclidine Screen Urine Not Detected (Not Detect)
[2023-08-13 15:58] LABS: Troponin-I High Sensitivity < 2.7 ng/L (<3.5-17.0)
[2023-08-13 16:12] VITALS: BP 130/77; PULSE 70; RESP 18; O2SAT 100
[2023-08-13 16:25] LABS: Influenza A PCR NEGATIVE (Negative); Influenza B PCR NEGATIVE (Negative); Resp Syncy Virus RNA Qual PCR NEGATIVE (Negative); SARS COV2 PCR INHOUSE NEGATIVE (Negative)
--- NOTE | 2023-08-13 16:32 | ED_ITS ---
HPI - Dizziness General Chief Complaint: Chest Pain Stated Complaint: chest pain Time Seen by Provider: 08/13/23 16:19 Source: patient Mode of arrival: ambulatory Limitations: no limitations History of Present Illness HPI Narrative: Was healthy complaining of sudden onset of dizziness started yesterday morning patient feels everything spinning around with off-balance with nausea no tinnitus no history of similar vertigo in the past no other motor weakness also complaining of left-sided chest which is reproducible also left arm pain no dizziness Related Data Home Medications Medication Instructions Recorded Confirmed [id number]-[id number] 1 cap PO QID 01/29/22 07/08/23 12,000-38,000-60,000 unit capsule,delayed rel (Creon) loratadine 10 mg tablet 1 tab PO DAILY PRN allergies 11/02/22 07/08/23 sodium chloride 0.65 % nasal spray 1 spray intranasal DIRECTED 11/02/22 07/08/23 aerosol (Saline Nasal) Previous Rx's Medication Instructions Recorded docusate sodium 100 mg capsule 100 mg PO BID #60 caps 06/16/22 (Colace) menthol 0.44 %-zinc oxide 20.6 % 1 appl topical QID PRN anal 06/17/22 topical ointment (Calmoseptine) burning #113 grams methylcellulose (laxative) 500 mg 500 mg PO DAILY #90 tabs 12/21/22 tablet (Citrucel) sennosides 8.6 mg tablet (Natural 17.2 mg (2 x 8.6 mg) PO BEDTIME 12/21/22 Senna Laxative) constipation #60 tabs bismuth subsalicylate 262 mg 2 tab PO QID 14 days #112 tabs 03/23/23 chewable tablet linaclotide 145 mcg capsule 145 mcg PO DAILY #30 caps 03/23/23 (Linzess) ondansetron 4 mg disintegrating 4 mg PO Q8H PRN nausea and 03/23/23 tablet vomiting #20 tabs cetirizine 10 mg capsule (Allergy 10 mg PO DAILY PRN allergy 04/20/23 Relief (cetirizine)) symptoms 90 days #90 caps prucalopride 2 mg tablet 2 mg PO DAILY #30 tabs 05/25/23 (Motegrity) amitriptyline 25 mg tablet 25 mg PO BEDTIME PRN insomnia 90 06/06/23 days #90 tabs pantoprazole 20 mg tablet,delayed 20 mg PO BID #180 tabs 06/18/23 release fluconazole 150 mg tablet 150 mg PO Q3D 2 doses #2 tabs 07/12/23 cetirizine 10 mg tablet 10 mg PO DAILY PRN for allergies 07/20/23 90 days #90 tabs hydrocortisone 2.5 % topical cream 1 appl [place] QID PRN hemorrhoids #30 08/13/23 with perineal applicator grams (Anusol-HC) meclizine 25 mg tablet 25 mg PO TID PRN dizziness #20 tabs 08/13/23 oxycodone-acetaminophen 5 mg-325 1 tab PO TID PRN pain 30 days #90 08/13/23 mg tablet (Percocet) tabs Allergies Allergy/AdvReac Type Severity Reaction Status Date / Time codeine Allergy Intermediate HIVES, Verified 07/08/23 12:51 [From Tylenol-Codeine #3] agitation omeprazole [OMEPRAZOLE] Allergy Intermediate abd Verified 07/08/23 12:51 pain/bloating penicillin G Allergy Intermediate rash Verified 07/08/23 12:51 morphine [MORPHINE] AdvReac Intermediate agitation, Verified 07/08/23 12:51 flips out Review of Systems 2 Review of Systems: Yes all other systems are reviewed and are negative PMFSH Past Medical History Medical History History of COVID-19 Hemorrhoids with complication BMI 32.0-32.9,adult Rash Hx of hemorrhoids Allergic rhinitis Drug induced constipation Abdominal pain Anemia Lumbar degenerative disc disease Surgical History History of hemorrhoidectomy (~06/16/22) History of esophagogastroduodenoscopy (EGD) Hx of colonoscopy History of laparoscopic cholecystectomy History of tubal ligation Family History Family History Father No problems noted. Mother History of kidney cancer Maternal Grandmother Colon cancer Daughter Asthma Social History Social History Household Members: None Housing: House Are you a primary care transport nurse to a significant other at home: No Do you presently have visiting nurse or other home services: No Alcohol intake: never Patient Tobacco Use Status: Never used Tobacco Smoked in Last 30 Days: No e-Cigarette/Vaping Use: Never Used Second Hand Smoke Exposure: No Use of substances other than those prescribed or required for medical reasons: No Advance Directives: No Advance Directives Information Provided: No Patient : No service: No Current occupational status: unemployed Cognitive needs: No Hearing needs: No Vision needs: No Physical Exam 2 Vital Signs: Vital Signs: Last Vital Signs Temp 98.9 F 08/13/23 15:03 Pulse 70 08/13/23 16:12 Resp 18 08/13/23 16:12 BP 130/77 08/13/23 16:12 Pulse Ox 100 08/13/23 16:12 O2 Del Method Room Air 08/13/23 16:12 BMI result Body Mass Index 32.4 Appearance: Alert. Oriented X3. No acute distress. Eyes: PERRLA, No Nystagmus ENT: Pharynx normal. Oral Mucosa moist Neck: Normal inspection. Neck supple. CVS: Normal heart rate and rhythm. Pulses normal. Left chest wall tenderness Respiratory: No respiratory distress. Equal air entry bilateral, no wheezing/rales/rhonchi Abdomen: Soft and nontender. Bowel sounds are present, no mass palpable, no CVA tenderness Skin: Skin warm and dry. Normal skin color. Normal skin turgor. Extremities: No lower extremity edema. No calf tenderness Neuro: Oriented X 3. No motor deficit. No sensory deficit.No cerebellar signs , cranial nerves II-XII intact Medications Administered Discontinued Medications Generic Name Dose Route Start Last Admin Trade Name Nancy PRN Reason Stop Dose Admin Ibuprofen 600 mg 08/13/23 16:48 08/13/23 17:23 Ibuprofen 600 Mg Tablet PO 08/13/23 16:49 600 mg ONCE ONE Administration Meclizine HCl 50 mg 08/13/23 16:31 08/13/23 17:23 Meclizine Hcl 25 Mg Tablet PO 08/13/23 16:32 50 mg ONCE ONE Administration Ondansetron HCl 4 mg 08/13/23 16:31 08/13/23 17:23 Ondansetron Odt 4 Mg Tab.Rapdis TRANSLINGU 08/13/23 16:32 4 mg ONCE ONE Administration Medical Decision Making Medical Decision Making MDM Narrative: Patient with sudden onset of vertiginous clinically better no signs of central system involvement atypical chest pain reproducible pain on palpation EKG without any ischemic changes cardiac enzymes negative will give patient meclizine Patient urine positive for cocaine patient denied use of cocaine was in the democrat 2 days ago but denies any substance abuse. Patient feeling better after meclizine Differential Diagnosis Differential Diagnoses: The differential diagnosis associated with the presentation includes Vertigo/substance abuse/atypical chest Lab Data [facility] Lab Attestation statement: I reviewed the patient's lab results. 08/13/23 15:27 08/13/23 15:27 Labs: Lab Results 08/13/23 08/13/23 Range/Units 15:27 15:33 WBC 5.5 (4.8-10.8) X10*3/uL RBC 5.71 H (4.20-5.50) X10*6/uL Hgb 14.5 (12.0-16.0) g/dl Hct 46.2 (37.0-47.0) % MCV 80.9 (80.0-98.0) fL MCH 25.4 L (27.0-33.0) pg MCHC 31.4 (31.0-35.0) g/dl RDW 14.5 (11.0-16.0) % Plt Count 224 (160-400) X10*3/uL MPV 9.6 (9.4-12.3) fL Immature Gran % (Auto) 0.2 (0.0-0.4) % Neut % (Auto) 53.4 (45-73) % Lymph % (Auto) 34.2 (20-40) % [place] % (Auto) 11.1 H (2-11) % Eos % (Auto) 0.9 (0-4) % Baso % (Auto) 0.2 (0-2) % Lymph # (Auto) 1.9 (1.2-4.9) X10*3/uL [place] # (Auto) 0.6 (0.1-1.2) X10*3/uL Eos # (Auto) 0.1 (0.0-0.4) X10*3/uL Baso # (Auto) 0.0 (0.0-0.2) X10*3/uL Abs Immat Gran (auto) 0.01 (0.00-0.03) X10*3/uL Absolute Neuts (auto) 3.0 (2.0-8.3) x10*3/uL Absolute Nucleated RBC 0.000 (0.0-0.012) X10*3/uL Nucleated RBC % (auto) 0.0 (0.0-0.2) /100WBC PT 11.8 (11.1-13.3) SEC INR 1.0 (0.9-1.1) APTT 38.9 H (26.0-36.4) SEC Sodium 143 (135-145) mmol/L Potassium 3.6 D (3.3-5.1) mmol/L Chloride 108 (96-108) mmol/L Carbon Dioxide 25 (22-29) mmol/L Anion Gap 14 (12-20) BUN 14 (9-16) mg/dL Creatinine 0.75 (0.5-1.4) mg/dL Estim Creat Clear Calc 90.4 Estimated GFR > 60 Random Glucose 101 (60-115) mg/dL Calcium 10.0 (8.4-10.2) mg/dL Magnesium 2.2 (1.6-2.6) mg/dL Total Bilirubin 0.5 (0.0-1.0) mg/dL AST 34 H (5-31) U/L ALT 60 H (0-31) U/L Alkaline Phosphatase 73 (39-117) U/L Troponin I High Sens < 2.7 (<3.5-17.0) ng/L Total Protein 7.4 (6.5-8.0) g/dL Albumin 3.9 (3.5-5.0) g/dL Urine Color Yellow Urine Appearance Clear Urine pH 5.5 (5.0-9.0) Ur Specific [place] 1.025 (1.005-1.025) Urine Protein Negative (Neg-Trace) mg/dL Urine Glucose (UA) Negative (Negative) mg/dL Urine Ketones Trace (Negative) mg/dL Urine Blood Negative (Negative) Urine Nitrite Negative (Negative) Ur Leukocyte Esterase Small (1+) H (Negative) Urine RBC 0-2 (0-2) /HPF Urine WBC 6-10 H (0-5) /HPF Ur Squamous Epith Cells 6-10 (0-2) /HPF Urine Bacteria Trace (None Seen) Hyaline Casts 0-2 (0-2) /LPF Urine Opiates Screen Not Detected (Not Detect) Urine Fentanyl Screen Not Detected (Not Detect) Ur Barbiturates Screen Not Detected (Not Detect) Ur Phencyclidine Scrn Not Detected (Not Detect) Ur Amphetamines Screen Not Detected (Not Detect) U Benzodiazepines Scrn Not Detected (Not Detect) Urine Cocaine Screen POSITIVE H (Not Detect) U Marijuana (THC) Screen Not Detected (Not Detect) Influenza Type A (PCR) NEGATIVE (Negative) Influenza Type B (PCR) NEGATIVE (Negative) RSV RNA Qual (PCR) NEGATIVE (Negative) SARS-CoV-2 RNA (RT-PCR) NEGATIVE (Negative) Independent Interpretation I performed an independent interpretation of an: EKG Interpretation: Normal sinus rhythm heart rate 97 beats per minute normal interval normal axis no acute ST-T changes no acute ischemia Discharge Plan Discharge Clinical Impression: Benign paroxysmal positional vertigo, Chest wall pain Patient Disposition: Home, Self-Care Instructions: Benign Paroxysmal Positional Vertigo (ED), Chest Wall Pain (ED) Additional Instructions: Care and caution as advised Meclizine 1 tablet every 8 hour as needed for dizziness Your urine is positive for cocaine not sure how you got positive for cocaine Follow with PCP Prescriptions: New meclizine 25 mg tablet 25 mg PO TID PRN (Reason: dizziness) Qty: 20 0RF No Action menthol-zinc oxide [Calmoseptine] 0.44-20.6 % ointment 1 appl topical QID PRN (Reason: anal burning) Qty: 113 0RF amitriptyline 25 mg tablet 25 mg PO BEDTIME PRN (Reason: insomnia) 90 Days Qty: 90 0RF pantoprazole 20 mg tablet,delayed release (DR/EC) 20 mg PO BID Qty: 180 3RF fluconazole 150 mg tablet 150 mg PO Q3D Qty: 2 0RF cetirizine 10 mg tablet 10 mg PO DAILY PRN (Reason: for allergies) 90 Days Qty: 90 0RF hydrocortisone [Anusol-HC] 2.5 % cream with perineal applicator 1 appl [place] QID PRN (Reason: hemorrhoids) Qty: 30 2RF oxycodone-acetaminophen [Percocet] 5-325 mg tablet 1 tab PO TID PRN (Reason: pain) 30 Days Qty: 90 0RF Rx Instructions: Partial Fill upon patient request. Creon 12,000-38,000 -60,000 unit capsule,delayed release(DR/EC) 1 cap PO QID loratadine 10 mg tablet 1 tab PO DAILY PRN (Reason: allergies) Saline Nasal 0.65 % aerosol,spray 1 spray intranasal DIRECTED docusate sodium [Colace] 100 mg capsule 100 mg PO BID Qty: 60 2RF Allergy Relief (cetirizine) 10 mg capsule 10 mg PO DAILY PRN (Reason: allergy symptoms) 90 Days Qty: 90 0RF bismuth subsalicylate 262 mg tablet,chewable 2 tab PO QID 14 Days Qty: 112 0RF ondansetron 4 mg tablet,disintegrating 4 mg PO Q8H PRN (Reason: nausea and vomiting) Qty: 20 0RF Linzess 145 mcg capsule 145 mcg PO DAILY Qty: 30 2RF Citrucel 500 mg tablet 500 mg PO DAILY Qty: 90 2RF Rx Instructions: take it with full glass of water sennosides [Natural Senna Laxative] 8.6 mg tablet 17.2 mg PO BEDTIME Qty: 60 1RF Motegrity 2 mg tablet 2 mg PO DAILY Qty: 30 3RF
[2023-08-13] MEDS: Ibuprofen 600 MG TABLET PO (17:23)
[2023-08-13] MEDS: Ondansetron ODT 4 MG TAB.RAPDIS TRANSLINGU (17:23)
[2023-08-13] MEDS: Meclizine HCl 25 MG TABLET 50 MG PO (17:23)
[2023-08-13 17:35] VITALS: PULSE 76
== END 2023-08-13 18:38 | disposition home or self-care (01) ==
PROVIDERS: Physician Assistant Medical; Emergency Provider Internal Medicine
DX: H81.10 Benign paroxysmal vertigo, unspecified ear (principal); R07.89 Other chest pain; Z20.822 Contact with and (suspected) exposure to COVID-19; Z20.828 Contact with and (suspected) exposure to other viral communicable diseases; G89.4 Chronic pain syndrome; F14.90 Cocaine use, unspecified, uncomplicated; Z79.899 Other long term (current) drug therapy
CPT/HCPCS: 0241U; 71046; 80053; 80307; 81001; 83735; 84484; 85025; 85610; 85730; 87086; 93005; 99285

== ENCOUNTER → 2023-08-13 14:56 | Outpatient (BNV) | payer OTHER, SELFPAY | PROVIDERS: Emergency Provider Internal Medicine; Visit Provider Internal Medicine Cardiovascular Disease | DX: R07.9 Chest pain, unspecified (principal) | CPT/HCPCS: 93010 ==

== ENCOUNTER 2023-09-27 14:33 | Outpatient (AMB) | payer OTHER, SELFPAY ==
[2023-09-27 14:55] VITALS: BP 145/88; PULSE 123; BMI 33.1
--- NOTE | 2023-09-27 14:55 | A.OFFVIS_ITS ---
Intake Vital Signs 09/27/23 14:55 Height 5 ft 3 in Weight 186 lb 15.232 oz BMI 33.1 BP 145/88 H Blood Pressure Location Rt brachial Position Sitting Pulse 123 H Pulse Source Pulse Oximeter Intake Visit Reasons: 3 month follow up Intake Note: Pt presents to the office today for a 3 month follow up for abdominal pain. Pt states she doesnt have abdominal pain as much as before. She states she will get pain especially when she has to have a bowel movement and she states some foods also affect her stomach pain. Pt denies any N/V/D at this time. Allergies codeine [From Tylenol-Codeine #3] Allergy (Intermediate, Verified 09/27/23 14:57) HIVES, agitation omeprazole [OMEPRAZOLE] Allergy (Intermediate, Verified 09/27/23 14:57) abd pain/bloating penicillin G Allergy (Intermediate, Verified 09/27/23 14:57) rash morphine [MORPHINE] Adverse Reaction (Intermediate, Verified 09/27/23 14:57) agitation, flips out HPI 3 month follow up HPI Details LAST VISIT Chronic abdominal pain GERD (gastroesophageal reflux disease) IBS (irritable bowel syndrome) Helicobacter pylori (H. pylori) Plan Will test for H pylori. Patient was encouraged to continue her pantoprazole. Patient was encouraged to avoid dietary triggers in late night snacking. Patient will start taking Motegrity daily in see if this will be helpful. Follow-up low FODMAP diet to avoid postprandial abdominal bloating. Patient was also encou raged to increase fluid intake and activity to promote better bowel motility I will see patient in 3 months, sooner on as needed basis. Patient is agreeable to this plan and verbalizes understanding of instructions. She was given the opportunity to ask questions and all questions answered. ? Thank you for allowing me to participate in her care Orders Orders H pylori Ag Stool 05/25/23 K21.9 Medications New prucalopride (Motegrity) 2 mg PO DAILY 30 tabs 3RF K59.04 TODAY'S VISIT: Patient continues with positive H pylori. Patient will need to be sent for upper endoscopy to send the specimen for microbiology so we can treat appropriately. Patient is taking pantoprazole twice a day and reports that her symptoms for the most part are suppressed. Occasionally depending on what she eats she might have loose stools and epigastric pain.. Patient is taking Motegrity daily and states that she is moving her bowels better now. Occasional postprandial abdominal bloating depending on what she eats. Patient denies melena, hematochezia, unintentional weight loss or ribbon like stools. Patient reports occasional dyspepsia without dysphagia or odynophagia. Patient denies any other GI concerning symptoms. Patient is aware that since food cause epigastric discomfort and bloating. Patient is trying to stay away from food that irritate her stomach. [facility] Medical History History of COVID-19 Hemorrhoids with complication BMI 32.0-32.9,adult Rash Hx of hemorrhoids Allergic rhinitis Drug induced constipation Abdominal pain Anemia Lumbar degenerative disc disease Surgical History History of hemorrhoidectomy (~06/16/22) History of esophagogastroduodenoscopy (EGD) Hx of colonoscopy History of laparoscopic cholecystectomy History of tubal ligation Family History Father No problems noted. Mother History of kidney cancer Maternal Grandmother Colon cancer Daughter Asthma Social History Household Members: None Housing: House Are you a primary transitions rn care coordinator to a significant other at home: No Do you presently have visiting nurse or other home services: No Alcohol intake: never Patient Tobacco Use Status: Never used Tobacco e-Cigarette/Vaping Use: Never Used Second Hand Smoke Exposure: No service: No Current occupational status: unemployed Cognitive needs: No Hearing needs: No Vision needs: No Review of Systems Const Denies weight gain and Denies weight loss ENT Reports no additional complaints, Denies dysphagia and Denies odynophagia Card Reports no additional complaints Resp Reports no additional complaints GI Denies abdominal pain, Denies belching, Denies melena, Denies bloating, Denies change in bowel habits, Denies dysphagia, Denies excessive flatus, Denies dyspepsia, Denies heartburn, Denies diarrhea, Reports loose stools, Denies nausea, Denies odynophagia and Denies vomiting Reports no additional complaints Musc Reports no additional complaints Neuro Reports no additional complaints Psych Reports no additional complaints Endo Reports no additional complaints Physical Exam Vital Signs: Last Vital Signs Pulse 123 H 09/27/23 14:55 BP 145/88 H 09/27/23 14:55 BMI result Body Mass Index 33.1 Const General: healthy appearing, no acute distress and well developed Nutritional Appearance: obese Orientation/consciousness: patient oriented x3 Resp Effort & Inspection: normal respiratory effort, able to speak in complete sentences, no tracheal deviation and symmetric chest movement Auscultation: clear to auscultation bilaterally Cardio Rate: regular rate GI Inspection: Yes normal to inspection, Yes distended and Yes obesity Palpation (GI): Soft to palpation, not firm, nontender and No hepatosplenomegaly present Auscultation: normal bowel sounds General: Yes no CVA tenderness Back/Spine/Pelvis Back: no CVA tenderness Skin General skin exam: elasticity normal, turgor normal and dry skin Neuro General: patient oriented x3 Psych Appearance: grossly normal Mental Status: mental status grossly normal Assessment & Plan Assessment & Plan (1) Chronic abdominal pain: Code(s): R10.9 - Unspecified abdominal pain; G89.29 - Other chronic pain (2) GERD (gastroesophageal reflux disease): Code(s): K21.9 - Gastro-esophageal reflux disease without esophagitis Qualifiers: Esophagitis presence: esophagitis presence not specified Qualified Code(s): K21.9 - Gastro-esophageal reflux disease without esophagitis (3) IBS (irritable bowel syndrome): Code(s): K58.9 - Irritable bowel syndrome without diarrhea Qualifiers: Irritable bowel syndrome type: with both diarrhea and constipation Qualified Code(s): K58.2 - Mixed irritable bowel syndrome (4) Helicobacter pylori (H. pylori): Code(s): A04.8 - Other specified bacterial intestinal infections Plan And successful treatment in the past with antibiotics to treat H pylori. Patient will be sent for upper endoscopy to retest. Please send sample for microbiology to assure appropriate treatment. Patient will continue taking PPI. Patient will avoid dietary triggers and late night snacking. Staying upright for minimum 3 hours after meals discussed with patient. Patient will continue taking Motegrity daily. Patient is not due for colonoscopy till May of 2026. Patient denies any melena, hematochezia, unintentional weight loss or ribbon like stools. Patient reports occasional dyspepsia without dysphagia or odynophagia. Coding Level of Care Code Est Pt Level 4 (00854) Diagnoses Chronic abdominal pain R10.9; G89.29 Gastroesophageal reflux disease, unspecified whether esophagitis present K21.9 Esophagitis presence: esophagitis presence not specified Irritable bowel syndrome with both constipation and diarrhea K58.2 Irritable bowel syndrome type: with both diarrhea and constipation Helicobacter pylori (H. pylori) A04.8 Time Spent (min) 35 Comment 20 minutes spent with patient and additional 15 minutes spent reviewing her records
== END 2023-09-27 15:32 | disposition home or self-care (01) ==
PROVIDERS: PCP Internal Medicine; Visit Provider Nurse Practitioner Family
DX: R10.9 Unspecified abdominal pain (principal); G89.29 Other chronic pain; K21.9 Gastro-esophageal reflux disease without esophagitis; K58.2 Mixed irritable bowel syndrome; A04.8 Other specified bacterial intestinal infections
CPT/HCPCS: 99214

== ENCOUNTER → 2023-09-27 14:33 | Outpatient (BNVA) | payer OTHER, SELFPAY | PROVIDERS: PCP Internal Medicine; Visit Provider Nurse Practitioner Family | DX: A04.8 Other specified bacterial intestinal infections (principal); K21.9 Gastro-esophageal reflux disease without esophagitis; K58.2 Mixed irritable bowel syndrome | CPT/HCPCS: 99212 ==

== ENCOUNTER 2023-11-11 10:16 | Outpatient (AMB) | payer OTHER, SELFPAY ==
[2023-11-11 10:20] VITALS: BP 112/78; PULSE 90; TEMP 36.2; O2SAT 98; BMI 32.6
--- NOTE | 2023-11-11 10:20 | AM.OFFWIN_ITS ---
Intake Vital Signs 11/11/23 10:20 Height 5 ft 3 in Weight 184 lb BMI 32.6 BP 112/78 Blood Pressure Location Lt brachial Position Sitting Pulse 90 Pulse Source Pulse Oximeter Temp 97.2 F Temp Source Temporal Artery Scan Pulse Oximetry (%) 98 Oxygen Delivery Method Room Air Intake Visit Reasons: EP RT Ear Intake Note: pt is here today for rt ear started 1 week ago Patient Tobacco Use Status: Never used Tobacco Allergies codeine [From Tylenol-Codeine #3] Allergy (Intermediate, Verified 11/11/23 10:24) HIVES, agitation omeprazole [OMEPRAZOLE] Allergy (Intermediate, Verified 11/11/23 10:24) abd pain/bloating penicillin G Allergy (Intermediate, Verified 11/11/23 10:24) rash morphine [MORPHINE] Adverse Reaction (Intermediate, Verified 11/11/23 10:24) agitation, flips out Do you need a note to return to daycare/school/sports/work: No HPI HPI Comments History of Present Illness Details 53 y/o female patient who presents to [facility] in clinic with c/o right ear pain x 1 week. Denies hearing problems. Denies Ringing of ears. Denies any drainage. [facility] Medical History History of COVID-19 Hemorrhoids with complication BMI 32.0-32.9,adult Rash Hx of hemorrhoids Allergic rhinitis Drug induced constipation Abdominal pain Anemia Lumbar degenerative disc disease Surgical History History of hemorrhoidectomy (~06/16/22) History of esophagogastroduodenoscopy (EGD) Hx of colonoscopy History of laparoscopic cholecystectomy History of tubal ligation Family History Father No problems noted. Mother History of kidney cancer Maternal Grandmother Colon cancer Daughter Asthma Social History Household Members: None Housing: House Are you a primary child care director to a significant other at home: No Do you presently have visiting nurse or other home services: No Alcohol intake: never Patient Tobacco Use Status: Never used Tobacco e-Cigarette/Vaping Use: Never Used Second Hand Smoke Exposure: No service: No Current occupational status: unemployed Cognitive needs: No Hearing needs: No Vision needs: No Review of Systems Const All systems reviewed & are unremarkable except as noted in HPI and below Physical Exam Vital Signs: Last Vital Signs Temp 97.2 F 11/11/23 10:20 Pulse 90 11/11/23 10:20 BP 112/78 11/11/23 10:20 Pulse Ox 98 11/11/23 10:20 Oxygen Delivery Method Room Air 11/11/23 10:20 BMI result Body Mass Index 32.6 Const General: comfortable and no acute distress Nutritional Appearance: overweight Orientation/consciousness: patient oriented x3 HEENT Head: Yes normocephalic Ears: TM normal on the left and TM abnormal erythematous on the right and with fluid behind the TM on the right General nose exam: Normal nasal mucous membranes and turbinates present Throat: Yes posterior oropharynx normal Neuro General: patient oriented x3 Assessment & Plan Assessment & Plan (1) Otitis media: Code(s): H66.90 - Otitis media, unspecified, unspecified ear Qualifiers: Otitis media type: unspecified Chronicity: acute Qualified Code(s): H66.90 - Otitis media, unspecified, unspecified ear Plan: - Abx Otic for 7 days - Acetaminophen for pain relief. - RTC if not better. Medications: New ciprofloxacin HCl 0.2% 0.25 mL otic (ear) left BID 7 days 14 ea 0RF Ear pain H66.90 - Otitis media, unspecified, unspecified ear Coding Level of Care Code Est Pt Level 3 (75173) Diagnoses Acute otitis media, unspecified otitis media type H66.90 Otitis media type: unspecified Chronicity: acute Time Spent (min) 15
== END 2023-11-11 10:50 | disposition home or self-care (01) ==
PROVIDERS: Visit Provider Nurse Practitioner Family
DX: H66.90 Otitis media, unspecified, unspecified ear (principal)
CPT/HCPCS: 99213

== ENCOUNTER 2023-11-23 08:04 | Day surgery (SDC) | payer OTHER, SELFPAY ==
--- NOTE | 2023-11-22 09:18 | P.CONAN_ITS ---
Documented by User: Nora Mac NP 11/22/23 09:19 HPI - Anesthesia Eval Consult details Narrative: 53yo F for Upper Endoscopy with H Pylori Biopsy PMFSH Active Problems Active Problems: All Active Problems (Updated 11/07/23 @ 16:33 by Sejal Watkins MD) Ear discomfort (Acute) Well woman exam (Acute) STD exposure (Acute) Hives (Acute) Endometrial cystic hyperplasia (Acute) Uterine fibroid (Acute) Chronic abdominal pain (Acute) Chronic pain syndrome (Acute) Iron deficiency anemia (Acute) COVID-19 (Acute) Physical exam (Acute) Hemorrhoids with complication (Acute) BMI 32.0-32.9,adult (Acute) Rash (Acute) Allergic rhinitis (Acute) Drug induced constipation (Acute) Abdominal pain (Acute) Anemia (Acute) Lumbar degenerative disc disease (Acute) Past Medical History Medical History History of COVID-19 Hemorrhoids with complication BMI 32.0-32.9,adult Rash Hx of hemorrhoids Allergic rhinitis Drug induced constipation Abdominal pain Anemia Lumbar degenerative disc disease Family History Family History Father No problems noted. Mother History of kidney cancer Maternal Grandmother Colon cancer Daughter Asthma Family history of problems with anesthesia: No Surgical History Surgical History History of hemorrhoidectomy (~06/16/22) History of esophagogastroduodenoscopy (EGD) Hx of colonoscopy History of laparoscopic cholecystectomy History of tubal ligation History of Problems with Anesthesia: Yes (PONV) Social History Social History Household Members: None Housing: House Are you a primary student career development specialist to a significant other at home: No Do you presently have visiting nurse or other home services: No Alcohol intake: never Patient Tobacco Use Status: Never used Tobacco e-Cigarette/Vaping Use: Never Used Second Hand Smoke Exposure: No Are you DNR?: No Advance Directives: No Advance Directives Information Provided: Yes Nutrition Risks: No Nutritional Risk FDLMP: 5 months ago service: No Current occupational status: unemployed Cognitive needs: No Hearing needs: No Vision needs: No Meds Allergies Allergy/AdvReac Type Severity Reaction Status Date / Time codeine Allergy Intermediate HIVES, Verified 11/11/23 10:24 [From Tylenol-Codeine #3] agitation omeprazole [OMEPRAZOLE] Allergy Intermediate abd Verified 11/11/23 10:24 pain/bloating penicillin G Allergy Intermediate rash Verified 11/11/23 10:24 morphine [MORPHINE] AdvReac Intermediate agitation, Verified 11/11/23 10:24 flips out Home Medications Medication Instructions Recorded Confirmed Last Taken Type kabfbu-bqjjxuon-[id number] 1 cap PO QID 01/29/22 07/08/23 Unknown History 12,000-38,000-60,000 unit capsule,delayed rel (Creon) loratadine 10 mg tablet 1 tab PO DAILY PRN allergies 11/02/22 07/08/23 Unknown History sodium chloride 0.65 % nasal spray 1 spray intranasal DIRECTED 11/02/22 07/08/23 Unknown History aerosol (Saline Nasal) montelukast 10 mg tablet 10 mg PO DAILY 11/11/23 Unknown History triamcinolone acetonide 0.1 % 1 appl topical BID-TID 11/11/23 Unknown History topical cream Assessment and Plan Assessment Anesthesia Assessment: Chart Reviewed Final Anesthetic Review Family History of Problems with Anesthesia: No History of Problems with Anesthesia: Yes (PONV) Documented by User: Nehal Nunez MD 11/23/23 09:09 [facility] Past Medical History Medical History History of COVID-19 Hemorrhoids with complication BMI 32.0-32.9,adult Rash Hx of hemorrhoids Allergic rhinitis Drug induced constipation Abdominal pain Anemia Lumbar degenerative disc disease Family History Family History Father No problems noted. Mother History of kidney cancer Maternal Grandmother Colon cancer Daughter Asthma Surgical History Surgical History History of hemorrhoidectomy (~10/25/22) History of esophagogastroduodenoscopy (EGD) Hx of colonoscopy History of laparoscopic cholecystectomy History of tubal ligation Social History Social History Household Members: None Housing: House Are you a primary student career development specialist to a significant other at home: No Do you presently have visiting nurse or other home services: No Alcohol intake: never Patient Tobacco Use Status: Never used Tobacco e-Cigarette/Vaping Use: Never Used Second Hand Smoke Exposure: No Are you DNR?: No Advance Directives: No Advance Directives Information Provided: Yes Nutrition Risks: No Nutritional Risk FDLMP: 5 months ago service: No Current occupational status: unemployed Cognitive needs: No Hearing needs: No Vision needs: No Meds Allergies Allergy/AdvReac Type Severity Reaction Status Date / Time codeine Allergy Intermediate HIVES, Verified 11/11/23 10:24 [From Tylenol-Codeine #3] agitation omeprazole [OMEPRAZOLE] Allergy Intermediate abd Verified 11/11/23 10:24 pain/bloating penicillin G Allergy Intermediate rash Verified 11/11/23 10:24 morphine [MORPHINE] AdvReac Intermediate agitation, Verified 11/11/23 10:24 flips out Home Medications Medication Instructions Recorded Confirmed Last Taken Type isnfqg-enivppvv-[id number] 1 cap PO QID 01/29/22 07/08/23 Unknown History 12,000-38,000-60,000 unit capsule,delayed rel (Creon) loratadine 10 mg tablet 1 tab PO DAILY PRN allergies 11/02/22 07/08/23 Unknown History sodium chloride 0.65 % nasal spray 1 spray intranasal DIRECTED 11/02/22 07/08/23 Unknown History aerosol (Saline Nasal) montelukast 10 mg tablet 10 mg PO DAILY 11/11/23 Unknown History triamcinolone acetonide 0.1 % 1 appl topical BID-TID 11/11/23 Unknown History topical cream Exam Airway Mallampati Class: II TM Dist: >3cm Neck ROM: Full Loose/Missing/Broken Teeth: No Heart: RRR Lungs: CTA Assessment and Plan Assessment Anesthesia Assessment: Anesthesia Plan Discussed Final Anesthetic Review NPO: Yes ASA Class: II Final Preanesthetic Review: Meds/Allgs Chart Reviewed, Consent Obtained/Reviewed and Anes Risks/Benef Reviewed Patient Risk: Low Procedure Risk: Intermediate Anesthetic Plan Anesthetic Plan: MAC: Disposition: Standard PACU
[2023-11-23 08:34] LABS: UPreg QC Valid YES; Urine Pregnancy NEGATIVE (NEGATIVE)
[2023-11-23 08:45] VITALS: BMI 32.9
[2023-11-23] MEDS: Lactated Ringers 1,000 ML 100 ML IVCONT (08:48)
[2023-11-23 08:56] VITALS: BP 143/96; PULSE 78; RESP 18; TEMP 36.7; O2SAT 98
--- NOTE | 2023-11-23 09:10 | MHC.SHP ---
Pre-Procedural Eval Section A - 24 Hr Update-Section A only Date of Service: 11/23/23 Section B - Complete if H&P > 30 days Chief Complaint: H pylori gastritis Details of Present Illness: History of COVID-19 Hemorrhoids with complication BMI 32.0-32.9,adult Rash Hx of hemorrhoids Allergic rhinitis Drug induced constipation Abdominal pain Anemia Lumbar degenerative disc disease Surgical History History of hemorrhoidectomy (~06/16/22) History of esophagogastroduodenoscopy (EGD) Hx of colonoscopy History of laparoscopic cholecystectomy History of tubal ligation Family History Father No problems noted. Mother History of kidney cancer Maternal Grandmother Colon cancer Daughter Asthma Allergies: Allergies Allergy/AdvReac Type Severity Reaction Status Date / Time codeine Allergy Intermediate HIVES, Verified 11/11/23 10:24 [From Tylenol-Codeine #3] agitation omeprazole [OMEPRAZOLE] Allergy Intermediate abd Verified 11/11/23 10:24 pain/bloating penicillin G Allergy Intermediate rash Verified 11/11/23 10:24 morphine [MORPHINE] AdvReac Intermediate agitation, Verified 11/11/23 10:24 flips out Review of Systems Review of Systems Comment: Ten point ROS negative Exam Exam Comment: Gen appear: No acute distress HEENT: no icterus Chest: No overt resp distress Abd: soft, nontender, nondistended Psych: Stable affect, answering questions appropriately Neuro: A/Ox3 noted to move all extremities spontaneously Ext: no peripheral edema Plan Diagnosis/Plan: Unchanged I have reviewed the history and physical and performed a pertinent physical examination on my patient. No changes have occurred unless specified. Patient reports noncompliance to H pylori treatment in the past 2 times. Was not able to tolerate the side effects and is likely why has not been able to eradicated HP. Also reports history of gastric cancer in mother (even though kidney cancer documented in chart). Will do EGD with mapping biopsies. Time Spent With Patient Time: Total time managing care of this patient today ____ minutes.
--- NOTE | 2023-11-23 09:11 | P.OP_ITS ---
Operative Note Operative Note Date of Service: 11/23/23 Narrative: Procedure: Esophagogastroduodenoscopy Endoscopist: Ada Ness MD Indication: H Pylori gastritis Anesthesia Provider: Dr Nehal Nunez Anesthesia Type: MAC Instrument: Olympus [id number]-H190 ?? EGD Procedure:?? The procedure, indications, preparation and potential complications were reviewed with the patient, who indicated understanding and gave written informed consent to proceed. A physical exam was performed. The endoscope was introduced through the mouth, and advanced to the second part of duodenum. The mucosa was carefully examined on slow withdrawal of the endoscope. The patient tolerated the procedure well. There were no immediate complications.? ? EGD Findings:? * Esophagus:? Normal mucosa noted in the entire esophagus. The Z line was at 35 cm and irregular to 34 cm. Cold forceps biopsies were taken to r/o Morton's esophagus. * Stomach:? Mild erythema was noted in the fundus. Uneven mucosal surface with raised pale areas noted in the fundus with elongated villous appearance in antrum rosemary in NBI suspicious for gastric intestinal metaplasia. Rachel protocol mapping biopsies were taken to r/o GIM. Retroflexion was performed the cardia showed a small hiatal hernia. * Duodenum:? Normal mucosa was noted in the whole of the examined duodenum. Cold forceps biopsies were taken from duodenal bulb and second portion of the duodenum to rule out celiac sprue. ? EGD Impressions:? * Irregular Z line * Hiatal hernia * Gastritis (biopsy) * Normal duodenum (biopsy) ?? Recommendations:?? * Follow biopsy results. Our office will call or send a letter with results within 7-10 days. * Patient counseled extensively regarding compliance with H Pylori tx and the importance to complete as prescribed rosemary if GIM confirmed as pt also with fam hx of gastric ca. * Consider platform architect referral to investigate if has true PCN allergy and if ruled out, can consider Talicia * Avoid NSAIDs. Above has been reviewed with the patient.
[2023-11-23 09:45] VITALS: BP 111/70; PULSE 103; RESP 18; TEMP 36.7; O2SAT 98
[2023-11-23 10:00] VITALS: BP 121/79; PULSE 85; RESP 18; TEMP 36.6; O2SAT 98
== END 2023-11-23 10:46 | disposition home or self-care (01) ==
PROVIDERS: Anesthesiology; Visit Provider Internal Medicine
PROC: 0DJ08ZZ Inspection of Upper Intestinal Tract, Via Natural or Artificial Opening Endoscopic (ICD-10-PCS; CPT 43235; principal; 2023-11-23 09:30)
DX: K29.70 Gastritis, unspecified, without bleeding (principal); B96.81 Helicobacter pylori [H. pylori] as the cause of diseases classified elsewhere; K22.89 Other specified disease of esophagus; K44.9 Diaphragmatic hernia without obstruction or gangrene; G89.29 Other chronic pain; R10.9 Unspecified abdominal pain; K21.9 Gastro-esophageal reflux disease without esophagitis; K58.2 Mixed irritable bowel syndrome; Z80.0 Family history of malignant neoplasm of digestive organs
CPT/HCPCS: 43239; 81025; 88305; 88313; 88342; J2704

== ENCOUNTER → 2023-11-23 08:04 | Outpatient (BNV) | payer OTHER, SELFPAY | PROVIDERS: Visit Provider Internal Medicine | DX: K29.70 Gastritis, unspecified, without bleeding (principal); K22.89 Other specified disease of esophagus | CPT/HCPCS: 43239 ==

== ENCOUNTER 2023-12-07 11:05 | Outpatient (AMB) | payer OTHER, SELFPAY ==
--- NOTE | 2023-12-07 11:09 | A.OFFVIS_ITS ---
Intake Vital Signs 12/07/23 11:15 Height 5 ft 3 in Weight 180 lb 12.465 oz BMI 32.0 BP 113/64 Blood Pressure Location Lt brachial Position Sitting Pulse 93 Intake Visit Reasons: S/P EGD; Dr. Ness Intake Note: Vesna presents in the office as a follow up EGD. CC: Just here for results - no concerns at this time. Allergies codeine [From Tylenol-Codeine #3] Allergy (Intermediate, Verified 12/07/23 11:14) HIVES, agitation omeprazole [OMEPRAZOLE] Allergy (Intermediate, Verified 12/07/23 11:14) abd pain/bloating penicillin G Allergy (Intermediate, Verified 12/07/23 11:14) rash morphine [MORPHINE] Adverse Reaction (Intermediate, Verified 12/07/23 11:14) agitation, flips out HPI S/P EGD; Dr. Ness HPI Details LAST VISIT: Chronic abdominal pain GERD (gastroesophageal reflux disease) IBS (irritable bowel syndrome) Helicobacter pylori (H. pylori) Plan And successful treatment in the past with antibiotics to treat H pylori. Patient will be sent for upper endoscopy to retest. Please send sample for microbiology to assure appropriate treatment. Patient will continue taking PPI. Patient will avoid dietary triggers and late night snacking. Staying upright for minimum 3 hours after meals discussed with patient. Patient will continue taking Motegrity daily. Patient is not due for colonoscopy till May of 2026. Patient denies any melena, hematochezia, unintentional weight loss or ribbon like stools. Patient reports occasional dyspepsia without dysphagia or odynophagia. ENDOSCOPY: EGD Findings:? * Esophagus:? Normal mucosa noted in the entire esophagus. The Z line was at 35 cm and irregular to 34 cm. Cold forceps biopsies were taken to r/o Morton's esophagus. * Stomach:? Mild erythema was noted in the fundus. Uneven mucosal surface with raised pale areas noted in the fundus with elongated villous appearance in antrum rosemary in NBI suspicious for gastric intestinal metaplasia. Rachel protocol mapping biopsies were taken to r/o GIM. Retroflexion was performed the cardia showed a small hiatal hernia. * Duodenum:? Normal mucosa was noted in the whole of the examined duodenum. Cold forceps biopsies were taken from duodenal bulb and second portion of the duodenum to rule out celiac sprue. ? EGD Impressions:? * Irregular Z line * Hiatal hernia * Gastritis (biopsy) * Normal duodenum (biopsy)?? Recommendations:?? * Follow biopsy results. Our office will call or send a letter with results within 7-10 days. * Patient counseled extensively regarding compliance with H Pylori tx and the importance to complete as prescribed rosemary if GIM confirmed as pt also with fam hx of gastric ca. * Consider public safety officer referral to investigate if has true PCN allergy and if ruled out, can consider Talicia * Avoid NSAIDs. * PATHOLOGY RESULT Diagnosis A. Duodenum, biopsy: Duodenal mucosa with mildly increased intraepithelial lymphocytes and preserved villous architecture. See comment. B. Stomach, antrum lesser curvature, biopsy: - Antral-type mucosa with severe chronic active inflammation. - Positive for H pylori. C. Stomach, antrum greater curvature, biopsy: Antral-type mucosa with moderate chronic inactive inflammation. D. Stomach, incisura, biopsy: Antral-type mucosa with moderate chronic, focally active, inflammation. E. Stomach, body lesser curvature, biopsy: Oxyntic mucosa with moderate chronic inactive inflammation. F. Stomach, body greater curvature, biopsy: Oxyntic mucosa with moderate chronic inactive inflammation. G. EG junction, biopsy: - Cardiofundic-type mucosa with moderate chronic, focally active, inflammation; no intestinal metaplasia seen. - Squamous mucosa within normal limits. Comment: The intraepithelial lymphocytes in the duodenum are likely secondary to the H pylori infection. TODAY'S VISIT Patient is here today for follow-up and to discuss upper endoscopy results and b iopsies. Patient still has H pylori despite trying to treat her few times. Patient never was able to finish all of the antibiotics as she was feeling ill when taking it. Patient has allergy to penicillin, however when asking her about allergies patient is not aware of if she truly has the allergy or not. Patient has been seen by public safety officer in the past and will call the office to find out if she can be tested. Patient reports that she has been doing well now that she has been treated with pantoprazole. Patient states that she is taking medication to help her move her bowels and she has no trouble. Denies melena, hematochezia, unintentional weight loss or ribbon like stools. For the most part patient reports that she has been feeling well denies any GI concerning symptoms today. Admits to occasional postprandial abdominal bloating otherwise patient states that she is doing well. Upper endoscopy and biopsy results discussed with patient. No intestinal metaplasia seen, however patient is still positive for H pylori and inflammation was seen in his stomach in her esophagus and at the junction. [facility] Medical History History of COVID-19 Hemorrhoids with complication BMI 32.0-32.9,adult Rash Hx of hemorrhoids Allergic rhinitis Drug induced constipation Abdominal pain Anemia Lumbar degenerative disc disease Surgical History History of hemorrhoidectomy (~06/16/22) History of esophagogastroduodenoscopy (EGD) Hx of colonoscopy History of laparoscopic cholecystectomy History of tubal ligation Family History Father No problems noted. Mother History of kidney cancer Maternal Grandmother Colon cancer Daughter Asthma Social History Household Members: None Housing: House Are you a primary manager intensive care to a significant other at home: No Do you presently have visiting nurse or other home services: No Alcohol intake: never Patient Tobacco Use Status: Never used Tobacco e-Cigarette/Vaping Use: Never Used Second Hand Smoke Exposure: No service: No Current occupational status: unemployed Cognitive needs: No Hearing needs: No Vision needs: No Review of Systems Const Denies weight gain and Denies weight loss ENT Reports no additional complaints, Denies dysphagia and Denies odynophagia Card Reports no additional complaints Resp Reports no additional complaints GI Denies abdominal pain, Denies belching, Denies melena, Denies bloating, Denies change in bowel habits, Denies dysphagia, Denies excessive flatus, Denies dyspepsia, Denies heartburn, Denies diarrhea, Denies loose stools, Denies nausea, Denies odynophagia and Denies vomiting Musc Reports no additional complaints Neuro Reports no additional complaints Psych Reports no additional complaints Endo Reports no additional complaints Physical Exam Vital Signs: Last Vital Signs Pulse 93 12/07/23 11:15 BP 113/64 12/07/23 11:15 BMI result Body Mass Index 32.0 Const General: healthy appearing, no acute distress and well developed Nutritional Appearance: obese Orientation/consciousness: patient oriented x3 Resp Effort & Inspection: normal respiratory effort, able to speak in complete sentences, no tracheal deviation and symmetric chest movement Auscultation: clear to auscultation bilaterally Cardio Rate: regular rate GI Inspection: Yes normal to inspection, Yes distended and Yes obesity Palpation (GI): Soft to palpation, not firm, nontender and No hepatosplenomegaly present Auscultation: normal bowel sounds General: Yes no CVA tenderness Back/Spine/Pelvis Back: no CVA tenderness Skin General skin exam: elasticity normal, turgor normal and dry skin Neuro General: patient oriented x3 Psych Appearance: grossly normal Mental Status: mental status grossly normal Assessment & Plan Assessment & Plan (1) Chronic abdominal pain: Code(s): R10.9 - Unspecified abdominal pain; G89.29 - Other chronic pain (2) GERD (gastroesophageal reflux disease): Code(s): K21.9 - Gastro-esophageal reflux disease without esophagitis Qualifiers: Esophagitis presence: with esophagitis Esophagitis bleeding: without hemorrhage Qualified Code(s): K21.00 - Gastro-esophageal reflux disease with esophagitis, without bleeding (3) IBS (irritable bowel syndrome): Code(s): K58.9 - Irritable bowel syndrome without diarrhea Qualifiers: Irritable bowel syndrome type: without diarrhea Qualified Code(s): K58.9 - Irritable bowel syndrome without diarrhea (4) Helicobacter pylori (H. pylori): Code(s): A04.8 - Other specified bacterial intestinal infections Plan Patient will find out from her public safety officer to see if she can get tested for penicillin allergy. If patient is not allergic to penicillin then we can try her on Talicia, however if she has penicillin allergy we will have to do quadruple therapy again and patient will need to be compliant and finish all of the medications. Voquezna triple pack or double pack can also be used but only if patient has no allergy to penicillin. Will send script to pharmacy for Honorio RN is to try PA and patient will call us after speaking to her public safety officer. In the meantime patient will take pantoprazole twice a day. Encourage patient to avoid dietary triggers in late night snacking. Staying upright for minimal 3 hours after meals discussed with patient. Patient will return in 2 months, sooner on as needed basis. Patient is agreeable to this plan and verbalizes understanding of instructions. She was given the opportunity to ask questions and all questions answered. Thank you for allowing me to participate in her care Medications: New enwxxhivaj-uttgdapob-xcvdcyfbf 10-250-12.5 mg (Talicia) must administer with a meal/food 4 caps (4 x 10-250-12.5 mg) PO Q8H 14 days 168 ea 0RF Discontinued menthol-zinc oxide 0.44-20.6 % (Calmoseptine) Discontinued Reason: Patient no longer taking 1 appl topical QID PRN 113 grams 0RF anal burning sennosides (Natural Senna Laxative) Discontinued Reason: Patient no longer taking 17.2 mg (2 x 8.6 mg) PO BEDTIME 60 tabs 1RF constipation K59.00 - Constipation, unspecified bismuth subsalicylate Discontinued Reason: Patient no longer taking 2 tabs PO QID 14 days 112 tabs 0RF Coding Level of Care Code Est Pt Level 4 (42274) Diagnoses Chronic abdominal pain R10.9; G89.29 Gastroesophageal reflux disease with esophagitis without hemorrhage K21.00 Esophagitis presence: with esophagitis Esophagitis bleeding: without hemorrhage Irritable bowel syndrome without diarrhea K58.9 Irritable bowel syndrome type: without diarrhea Helicobacter pylori (H. pylori) A04.8 Time Spent (min) 40 Comment 25 minutes spent with patient and additional 15 minutes spent reviewing her records
[2023-12-07 11:15] VITALS: BP 113/64; PULSE 93; BMI 32.0
== END 2023-12-07 11:54 | disposition home or self-care (01) ==
PROVIDERS: Visit Provider Nurse Practitioner Family
DX: R10.9 Unspecified abdominal pain (principal); G89.29 Other chronic pain; K21.00 Gastro-esophageal reflux disease with esophagitis, without bleeding; K58.9 Irritable bowel syndrome, unspecified; A04.8 Other specified bacterial intestinal infections
CPT/HCPCS: 99214

== ENCOUNTER → 2023-12-07 11:05 | Outpatient (BNVA) | payer OTHER, SELFPAY | PROVIDERS: Visit Provider Nurse Practitioner Family | DX: K21.00 Gastro-esophageal reflux disease with esophagitis, without bleeding (principal); K58.9 Irritable bowel syndrome, unspecified; A04.8 Other specified bacterial intestinal infections; R10.9 Unspecified abdominal pain; G89.29 Other chronic pain | CPT/HCPCS: 99212 ==

== ENCOUNTER 2024-01-06 13:58 | Outpatient (AMB) | payer OTHER, SELFPAY ==
[2024-01-06 14:06] VITALS: BP 130/80; BMI 27.8
--- NOTE | 2024-01-06 14:06 | A.OFFPC_ITS ---
Vital Signs 01/06/24 14:06 Height 5 ft 3 in Weight 157 lb BMI 27.8 BP 130/80 Blood Pressure Location Lt brachial Position Sitting Intake Visit Reasons: lumbar spine Belt Back Operator Required: No Accompanied by: Self / Same As Patient Allergies codeine [From Tylenol-Codeine #3] Allergy (Intermediate, Verified 01/06/24 14:07) HIVES, agitation omeprazole [OMEPRAZOLE] Allergy (Intermediate, Verified 01/06/24 14:07) abd pain/bloating penicillin G Allergy (Intermediate, Verified 01/06/24 14:07) rash morphine [MORPHINE] Adverse Reaction (Intermediate, Verified 01/06/24 14:07) agitation, flips out Tobacco use date assessed: 01/06/24 Dental Screening Dental Screen Date: 01/06/24 Did you have a dental visit in the last 12 months?: Yes Did you have a dental problem in the last 6 months where you did not have access to dental care?: No Was dental information given to patient?: Patient has dentist HPI HPI Comments History of Present Illness Details This is a 53-year-old female with chronic abdominal pain, lumbar degenerative disc disease, drug induced constipation in opiate use that comes today for follow-up on her conditions. Chronic abdominal pain has been follow by Gastroenterology. On opiates due to lumbar degenerative disc disease that has controlled her pain. Constipation stable with Linzess. Denies any chest pain or shortness of breath. Pain management contract was signed today and she is aware she needs to bring her pills the next time for pill count. Urine toxicology was also done today. She also has moderate major depression stable with amitriptyline. [facility] Medical History (Updated 01/06/24 @ 19:11 by Sejal Watkins MD) History of COVID-19 Hemorrhoids with complication BMI 32.0-32.9,adult Rash Hx of hemorrhoids Allergic rhinitis Drug induced constipation Abdominal pain Anemia Lumbar degenerative disc disease Surgical History History of hemorrhoidectomy (~06/16/22) History of esophagogastroduodenoscopy (EGD) Hx of colonoscopy History of laparoscopic cholecystectomy History of tubal ligation Family History Father No problems noted. Mother History of kidney cancer Maternal Grandmother Colon cancer Daughter Asthma Social History Household Members: None Housing: House Are you a primary critical care specialist to a significant other at home: No Do you presently have visiting nurse or other home services: No Alcohol intake: never Patient Tobacco Use Status: Never used Tobacco e-Cigarette/Vaping Use: Never Used Second Hand Smoke Exposure: No service: No Current occupational status: unemployed Cognitive needs: No Hearing needs: No Vision needs: No Questionnaire PHQ-9 Over the last 2 weeks, how often have you been bothered by any of the following problems? 1. Little interest or pleasure in doing things: several days 2. Feeling down, depressed, or hopeless: nearly every day 3. Trouble falling or staying asleep, or sleeping too much: nearly every day 4. Feeling tired or having little energy: several days 5. Poor appetite or overeating: nearly every day 6. Feeling bad about yourself - or that you are a failure or have let yourself or your family down: several days 7. Trouble concentrating on things, such as reading the newspaper or watching television: several days 8. Moving or speaking so slowly that other people could have noticed. Or the opposite - being so fidgety or restless that you have been moving around a lot more than usual: nearly every day 9. Thoughts that you would be better off or of hurting yourself in some way: not at all Total score: 16 Depression Screening Interpretation: Positive (No suicidal thoughts.) Depression Screening Follow-up: Existing condition and In treatment Depression Screening Done: Yes Source: Developed by Drs. Jose A Wilson, Tami Salcido, Bhavin Smith and colleagues, with an educational sean from [employer]. Thrive Questionnaire Date Thrive assessed: 01/06/24 I am a: Patient What is your living situation today?: I have a steady place to live Within the past 12 months, did the food you bought not last and you didn't have the money to get more?: Never true Within the past 12 months, did you worry whether your food would run out before you got money to buy more?: Never true Do you have trouble paying for medicines?: No Do you have trouble getting transportation to medical appointments?: No Do you have trouble paying your heating and electricity bill?: No Do you have trouble taking care of your child, family member or friend?: No Do you have trouble with day-to-day activities such as bathing, preparing meals, shopping, managing finances, etc.?: No Are you currently unemployed and looking for a job?: No Are you interested in more education?: No Please select the resources that you would like help with: None Currently or been in a relationship where the following occur: no concerns reported THRIVE Score: 0 AUDIT C Alcohol Use Questionnaire (AUDIT-C) 1. How often do you have a drink containing alcohol?: Never Total Score: 0 TUCKER-7 AMB Questionnaire TUCKER-7 Date TUCKER - 7 assessed: 01/06/24 Feeling nervous, anxious, or on edge: 3 = Nearly every day Not being able to stop or control worryin = Several days Worrying too much about different things: 3 = Nearly every day Trouble relaxin = Several days Being so restless that it is hard to sit still: 1 = Several days Becoming easily annoyed or irritable: 1 = Several days Feeling afraid as if something awful might happen: 1 = Several days Total TUCKER-7 score (0-4 normal; 5-9 mild; 10-14 moderate; 15-21 severe): 11 Source: Developed by Drs. Jose A Wilson, Tami Salcido, Bhavin Smith and colleagues, with an educational sean from [employer]. Review of Systems Const All systems reviewed & are unremarkable except as noted in HPI and below Card Denies chest pain at rest, Denies chest pain with activity, Denies edema, Denies irregular heart rhythm, Denies claudication, Denies dyspnea, Denies dyspnea on exertion, Denies orthopnea, Denies paroxysmal nocturnal dyspnea and Denies slow heart rate Resp Denies cough, Denies dyspnea and Denies dyspnea on exertion Physical exam (Primary Care) Vital Signs: Last Vital Signs BP 130/80 01/06/24 14:06 BMI result Body Mass Index 27.8 Tobacco/Smoking Status: Tobacco use Status Tobacco use date assessed 01/06/24 01/06/24 14:13 Patient Tobacco Use Status Never used Tobacco 01/06/24 14:13 Tobacco use type 12/07/23 11:55 e-Cigarette/Vaping Use Never Used 01/06/24 14:13 PHQ-9: PHQ-9 Score PHQ-9: Total score 16 01/06/24 14:40 Depression Screening Interpretation: Positive (No suicidal thoughts.) Depression Screening Follow-up: Existing condition and In treatment Thrive Assessment: Date of Thrive Assessment Date Thrive assessed 01/06/24 01/06/24 14:13 Currently or been in a relationship where the following occur: no concerns reported Resp Effort & Inspection: normal respiratory effort Auscultation: clear to auscultation bilaterally Cardio Jugular venous distension: no JVD Rate: regular rate Rhythm: regular rhythm Heart sounds: S1 normal heart sound present and S2 normal heart sound present GI Inspection: Yes normal to inspection Palpation (GI): Soft to palpation and nontender Auscultation: normal bowel sounds Extrem General: Yes full ROM Psych Appearance: grossly normal Assessment and Plan Assessment & Plan (1) Drug induced constipation: Code(s): K59.03 - Drug induced constipation Plan: Continue Linzess. (2) Lumbar degenerative disc disease: Code(s): M51.36 - Other intervertebral disc degeneration, lumbar region Plan: Continue Percocet. (3) Chronic abdominal pain: Code(s): R10.9 - Unspecified abdominal pain; G89.29 - Other chronic pain Plan: Follow-up with Gastroenterology. (4) Opiate use: Comment: Pain management contract signed 01/06/2024 Code(s): F11.90 - Opioid use, unspecified, uncomplicated Plan: Pain management contract signed today. Pending urine toxicology results. Orders: Orders Drug Screen Urine Today F11.90 - Opioid use, unspecified, uncomplicated Tramadol Ur GC/MS Today F11.90 - Opioid use, unspecified, uncomplicated XR lumbar spine 2-3V Today M51.36 - Other intervertebral disc degeneration, lumbar region Opiates GCMS Expanded, Ur Today F11.90 - Opioid use, unspecified, uncomplicated Medications: Refilled ondansetron 4 mg PO Q8H PRN 20 tabs 0RF nausea and vomiting R11.0 - Nausea Coding Level of Care Code Est Pt Level 4 (68991) Diagnoses Drug induced constipation K59.03 Lumbar degenerative disc disease M51.36 Chronic abdominal pain R10.9; G89.29 Opiate use F11.90 Time Spent (min) 21
== END 2024-01-06 15:30 | disposition home or self-care (01) ==
PROVIDERS: PCP Internal Medicine; Visit Provider Internal Medicine
DX: K59.03 Drug induced constipation (principal); M51.36 Other intervertebral disc degeneration, lumbar region; R10.9 Unspecified abdominal pain; Z68.27 Body mass index [BMI] 27.0-27.9, adult; G89.29 Other chronic pain; F11.90 Opioid use, unspecified, uncomplicated
CPT/HCPCS: 99214

== ENCOUNTER 2024-01-06 16:00 | Outpatient (REF) | payer OTHER, SELFPAY ==
[2024-01-06 16:20] LABS: Amphetamine Screen Urine Not Detected (Not Detect); Barbiturates, Urine Not Detected (Not Detect); Benzodiazepines Screen Urine Not Detected (Not Detect); Buprenorphine Scr Not Detected (Not Detect); Cannabinoid Screen Urine Not Detected (Not Detect); Cocaine Screen Urine Not Detected (Not Detect); Fentanyl, urine Not Detected (Not Detect); Methadone Screen, Urine Not Detected (Not Detect); Opiate Screen Urine Not Detected (Not Detect); Oxycodone Screen Urine Not Detected (Not Detect); Phencyclidine Screen Urine Not Detected (Not Detect)
[2024-01-10 12:30] LABS: Codeine, Ur NEGATIVE; Hydrocodone, Ur NEGATIVE; Hydromorphone, Ur NEGATIVE; Morphine, Ur NEGATIVE; Norhydrocodone, Ur NEGATIVE; Noroxycodone, Ur NEGATIVE; Oxycodone, Ur NEGATIVE; Oxymorphone, Ur NEGATIVE
[2024-01-10 12:31] LABS: Desmethyltramadol, Ur NEGATIVE; Tramadol, Ur NEGATIVE
== END 2024-01-06 16:01 | disposition home or self-care (01) ==
LOC: HO.LNP 16:00
PROVIDERS: Visit Provider Internal Medicine
DX: F11.90 Opioid use, unspecified, uncomplicated (principal)
CPT/HCPCS: 80307; 80365; 80373; G0480

== ENCOUNTER 2024-01-10 11:07 | Outpatient (REF) | payer OTHER, SELFPAY ==
--- NOTE | ~2024-01-10 | XR_ITS ---
EXAMINATION: XR LUMBOSACRAL SPINE CLINICAL INFORMATION: Intervertebral disc degeneration. COMPARISON: None available. TECHNIQUE: Three views of the lumbosacral spine. FINDINGS: Slight rightward curvature of the lumbar spine. Surgical clips in the right upper quadrant. Degenerative changes on limited images of the bilateral hips and sacroiliac joints. Pelvic calcifications are likely vascular. Bones are diffusely demineralized. Facet arthritis in the lower lumbar spine. Lumbar spondylosis with marked loss of disc space height at L5-S1. XR/XR lumbar spine 2-3V IMPRESSION: Marked degenerative disc disease at L5-S1.
== END 2024-01-10 11:08 | disposition home or self-care (01) ==
LOC: HO.XRAY 11:07
PROVIDERS: Visit Provider Internal Medicine
DX: M51.36 Other intervertebral disc degeneration, lumbar region (principal)
CPT/HCPCS: 72100

== ENCOUNTER 2024-02-07 10:41 | Outpatient (AMB) | payer OTHER, SELFPAY ==
--- NOTE | 2024-02-07 10:44 | A.OFFVIS_ITS ---
Vital Signs 02/07/24 10:50 Height 5 ft 3 in Weight 182 lb 8.684 oz BMI 32.3 BP 128/80 Blood Pressure Location Lt brachial Position Sitting Pulse 98 Pulse Source Pulse Oximeter Pulse Oximetry (%) 99 Oxygen Delivery Method Room Air Intake Visit Reasons: 2 month follow up Intake Note: Vesna presents in office today for a scheduled 2 mos FUV. CC: Pt was rx'd omeprazole at their last OV. Pt reports that she has not been taking the medication as it was determined that she has a moderate to severe intolerance to this medication. Pt is still experiencing sx and will require an alternative form of treatment. Allergies codeine [From Tylenol-Codeine #3] Allergy (Intermediate, Verified 02/07/24 10:49) HIVES, agitation omeprazole [OMEPRAZOLE] Allergy (Intermediate, Verified 02/07/24 10:49) abd pain/bloating penicillin G Allergy (Intermediate, Verified 02/07/24 10:49) rash morphine [MORPHINE] Adverse Reaction (Intermediate, Verified 02/07/24 10:49) agitation, flips out HPI HPI 2 month follow up: Details: LAST VISIT Chronic abdominal pain GERD (gastroesophageal reflux disease) IBS (irritable bowel syndrome) Helicobacter pylori (H. 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 If patient is not allergic to penicillin then we can try her on Talicia, however if she has penicillin allergy we will have to do quadruple therapy again and patient will need to be compliant and finish all of the medications. Voquezna triple pack or double pack can also be used but only if patient has no allergy to penicillin. Will send script to pharmacy for BE Olmedo is to try PA and patient will call us after speaking to her precision crop manager. In the meantime patient will take pantoprazole twice a day. Encourage patient to avoid dietary triggers in late night snacking. Staying upright for minimal 3 hours after meals discussed with patient. Patient will return in 2 months, sooner on as needed basis. Patient is agreeable to this plan and verbalizes understanding of instructions. She was given the opportunity to ask questions and all questions answered. ? Thank you for allowing me to participate in her care Medications New iyyvboteep-ldoigrcee-ckozdrbfl 10-250-12.5 mg (Talicia) must administer with a meal/food 4 caps (4 x 10-250-12.5 mg) PO Q8H 14 days 168 ea 0RF Discontinued menthol-zinc oxide 0.44-20.6 % (Calmoseptine) Discontinued Reason: Patient no longer taking 1 appl topical QID PRN 113 grams 0RF anal burning sennosides (Natural Senna Laxative) Discontinued Reason: Patient no longer taking 17.2 mg (2 x 8.6 mg) PO BEDTIME 60 tabs 1RF constipation K59.00 bismuth subsalicylate Discontinued Reason: Patient no longer taking 2 tabs PO QID 14 days 112 tabs 0RF * TODAY'S VISIT: Patient is here today for follow-up. Patient reports that she recently went to her precision crop manager and in fact tested positive for severe allergy to penicillin. Patient did not take Talicia as it has amoxicillin. Patient had not finished her treatment in the past when she did quadruple therapy with tetracycline and metronidazole. Discussed with patient importance of trying to treat the bacteria. Continues to have epigastric discomfort postprandially and postprandi al abdominal bloating. Patient reports that she is taking Motegrity and she is able to move her bowels well occasional constipation, however patient is also taking or periods for pain management patient denies any nausea or vomiting. Denies any melena, hematochezia, unintentional weight loss or ribbon like stools. [facility] Medical History History of COVID-19 Hemorrhoids with complication BMI 32.0-32.9,adult Rash Hx of hemorrhoids Allergic rhinitis Drug induced constipation Abdominal pain Anemia Lumbar degenerative disc disease Surgical History History of hemorrhoidectomy (~06/16/22) History of esophagogastroduodenoscopy (EGD) Hx of colonoscopy History of laparoscopic cholecystectomy History of tubal ligation Family History Father No problems noted. Mother History of kidney cancer Maternal Grandmother Colon cancer Daughter Asthma Social History Household Members: None Housing: House Are you a primary inspector health care facilities to a significant other at home: No Do you presently have visiting nurse or other home services: No Alcohol intake: never Patient Tobacco Use Status: Never used Tobacco e-Cigarette/Vaping Use: Never Used Second Hand Smoke Exposure: No service: No Current occupational status: unemployed Cognitive needs: No Hearing needs: No Vision needs: No Review of Systems Const Denies weight gain and Denies weight loss ENT Reports no additional complaints, Denies dysphagia and Denies odynophagia Card Reports no additional complaints Resp Reports no additional complaints GI Reports abdominal pain (Epigastric), Denies belching, Denies melena, Denies bloating, Denies change in bowel habits, Denies dysphagia, Denies excessive flatus, Reports dyspepsia, Reports heartburn, Denies diarrhea, Denies loose stools, Reports nausea, Denies odynophagia and Denies vomiting Musc Reports no additional complaints Neuro Reports no additional complaints Psych Reports no additional complaints Endo Reports no additional complaints Physical Exam Vital Signs: Last Vital Signs Pulse 98 02/07/24 10:50 BP 128/80 02/07/24 10:50 Pulse Ox 99 02/07/24 10:50 Oxygen Delivery Method Room Air 02/07/24 10:50 BMI result Body Mass Index 32.3 Const General: healthy appearing and no acute distress Nutritional Appearance: obese Orientation/consciousness: patient oriented x3 Resp Effort & Inspection: normal respiratory effort, able to speak in complete sentences, no tracheal deviation and symmetric chest movement Auscultation: clear to auscultation bilaterally Cardio Rate: regular rate GI Inspection: Yes normal to inspection, Yes distended and Yes obesity Palpation (GI): Soft to palpation, not firm, nontender and No hepatosplenomegaly present Auscultation: normal bowel sounds General: Yes no CVA tenderness Back/Spine/Pelvis Back: no CVA tenderness Skin General skin exam: elasticity normal, turgor normal and dry skin Neuro General: patient oriented x3 Psych Appearance: grossly normal Mental Status: mental status grossly normal Assessment & Plan Assessment & Plan (1) Chronic abdominal pain: Code(s): R10.9 - Unspecified abdominal pain; G89.29 - Other chronic pain Category: Medical (2) GERD (gastroesophageal reflux disease): Code(s): K21.9 - Gastro-esophageal reflux disease without esophagitis Qualifiers: Esophagitis presence: esophagitis presence not specified Qualified Code(s): K21.9 - Gastro-esophageal reflux disease without esophagitis (3) IBS (irritable bowel syndrome): Code(s): K58.9 - Irritable bowel syndrome without diarrhea Qualifiers: Irritable bowel syndrome type: with constipation Qualified Code(s): K58.1 - Irritable bowel syndrome with constipation (4) Helicobacter pylori (H. pylori): Code(s): A04.8 - Other specified bacterial intestinal infections Plan Patient requesting referral to vascular surgery for lower extremity swelling and large varicose veins. Referral send. Long discussion with patient about treatment for H pylori. Patient will try quadruple therapy and will try to finish the medication. Avoid alcohol and any food that contains vinegar to avoid dyspepsia and abdominal discomfort. Continue current treatment with Motegrity. Patient will increase fiber and fluid intake as well as activity to promote better bowel motility. Jesús sent to help with nausea during H pylori treatment. Patient will return to the office in 2 months, sooner on as needed basis. She is agreeable this plan and verbalizes understanding of instructions she was given the opportunity to ask questions and all questions answered. Thank you for allowing me participate in her care Orders: Referrals Vascular Surgery Referral I73.9 - Peripheral vascular disease, unspecified Medications: New bismuth subsalicylate 2 tabs PO QID 112 tabs 0RF 14 days A04.8 - Other specified bacterial intestinal infections tetracycline 1,000 mg (2 x 500 mg) PO Q12H 56 caps 0RF A04.8 - Other specified bacterial intestinal infections metronidazole 1,000 mg (2 x 500 mg) PO BID 56 tabs 0RF A04.8 - Other specified bacterial intestinal infections Refilled pantoprazole 20 mg PO BID 180 tabs 3RF prucalopride (Motegrity) 2 mg PO DAILY 30 tabs 3RF K59.04 - Chronic idiopathic constipation ondansetron 4 mg PO Q8H PRN 20 tabs 0RF nausea and vomiting R11.0 - Nausea prucalopride (Motegrity) 2 mg PO DAILY 30 tabs 3RF K59.04 - Chronic idiopathic constipation Discontinued docusate sodium Discontinued Reason: Patient no longer taking 100 mg PO BID 60 caps 2RF linaclotide Discontinued Reason: Patient no longer taking 145 mcg PO DAILY 30 caps 2RF Coding Level of Care Code Est Pt Level 3 (57150) Diagnoses Chronic abdominal pain R10.9; G89.29 Gastroesophageal reflux disease, unspecified whether esophagitis present K21.9 Esophagitis presence: esophagitis presence not specified Irritable bowel syndrome with constipation K58.1 Irritable bowel syndrome type: with constipation Helicobacter pylori (H. pylori) A04.8 Time Spent (min) 30 Comment 20 minutes spent with patient and additional 10 minutes spent reviewing her records
[2024-02-07 10:50] VITALS: BP 128/80; PULSE 98; O2SAT 99; BMI 32.3
== END 2024-02-07 11:50 | disposition home or self-care (01) ==
PROVIDERS: Visit Provider Nurse Practitioner Family
DX: R10.9 Unspecified abdominal pain (principal); G89.29 Other chronic pain; K21.9 Gastro-esophageal reflux disease without esophagitis; K58.1 Irritable bowel syndrome with constipation; A04.8 Other specified bacterial intestinal infections
CPT/HCPCS: 99213

== ENCOUNTER → 2024-02-07 10:41 | Outpatient (BNVA) | payer OTHER, SELFPAY | PROVIDERS: Visit Provider Nurse Practitioner Family | DX: R10.9 Unspecified abdominal pain (principal); G89.29 Other chronic pain; K21.9 Gastro-esophageal reflux disease without esophagitis; K58.1 Irritable bowel syndrome with constipation; A04.8 Other specified bacterial intestinal infections | CPT/HCPCS: 99212 ==

== ENCOUNTER 2024-03-31 09:46 | Outpatient (AMB) | payer OTHER, SELFPAY ==
--- NOTE | 2024-03-31 09:51 | MHC.OFFVIS ---
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 Patient expresses 2 months ago is when her hand pain started to worsen, left hand worse than right hand. She states her right hand ring finger and left hand thumb occasionally locks and if the pain is not too bad she massages her fingers to try and straighten them out. She is having pain with lifting, gripping, and grasping such as opening water bottles, holding her phone, gripping the steering wheel while driving, or doing her hair. When she washes dishes her hands sometimes give up causing her to drop plates. Closed fist causes pain at the PIP joints of all fingers. She has days where she expresses she is unable to feel her hands and they feel heavy. At night is when her symptoms are at the worse causing her to wake up and shake her hands. She sometimes goes to sleep with a water bottle in her left hand with feel of her thumb staying contracted. Denies recent injury. 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 Patient reports that she is not sure when the numbness and tingling in her bilateral hands started, but states that symptoms are intermittent, but daily, and worse at night when she is regularly awoken by pain and needs to shake out her hands to bring sensation. The patient also reports that this numbness can be associated with swelling of bilateral hands. With regards to her locking and catching, the patient reports that her left thumb has been catching and locking for approximately 2-3 months, and that the locking and catching in her right ring finger began ?shortly after that?. The patient reports that she does have a fairly significant history of pain throughout her body, and would like advised on potential treatment options, particularly for the locking and catching of her left thumb. [facility] Medical History History of COVID-19 Hemorrhoids with complication BMI 32.0-32.9,adult Rash Hx of hemorrhoids Allergic rhinitis Drug induced constipation Abdominal pain Anemia Lumbar degenerative disc disease Surgical History History of hemorrhoidectomy (~06/16/22) History of esophagogastroduodenoscopy (EGD) Hx of colonoscopy History of laparoscopic cholecystectomy History of tubal ligation Family History Father No problems noted. Mother History of kidney cancer Maternal Grandmother Colon cancer Daughter Asthma Social History Household Members: None Housing: House Are you a primary assistant child care teacher to a significant other at home: No Do you presently have visiting nurse or other home services: No Alcohol intake: never Patient Tobacco Use Status: Never used Tobacco e-Cigarette/Vaping Use: Never Used Second Hand Smoke Exposure: No service: No Current occupational status: unemployed Cognitive needs: No Hearing needs: No Vision needs: No Review of Systems Const All systems reviewed & are unremarkable except as noted in HPI and below Physical Exam Vital Signs: BMI result Body Mass Index 30.1 Const Other: Patient is alert, oriented, cooperative, and in no acute distress HEENT Head: Yes normocephalic and Yes atraumatic Resp Effort & Inspection: normal respiratory effort and able to speak in complete sentences Cardio Jugular venous distension: no JVD Neuro General: gait normal Cognition (Neuro): normal cognition Extrem Other: Patient is alert, oriented, and in no acute distress. Neuro: Median, ulnar, radial nerves motor and sensory intact and sensation is normal to the tips of all digits. Vascular: Cap refill brisk Pain: Patient reports no tenderness to palpation of bilateral hands at this time Patient does report pain in the thumb with flexion and extension, particularly associated with catching ROM: Visible and palpable locking and catching of the left thumb noted Range of motion of all other fingers full and intact, no other locking or catching observed Skin: No lacerations or abrasions. General: No ecchymosis, erythema, or evidence of infection. No edema of the hands noted There is a noted rounded deformity at the level of the A1 harmony of the left thumb, nontender to palpation Psych: Appears grossly normal Affect normal Attitude cooperative Psych Appearance: grossly normal Mental Status: mental status grossly normal Office Procedures Tendon Injection Tendon Injection Details: Left thumb trigger injection [id number] Tendon Sheath Injection All charges added?: Procedure code (CPT) selection complete Assessment & Plan Assessment & Plan (1) Hand pain: Code(s): M79.643 - Pain in unspecified hand Category: Medical (2) Numbness and tingling in both hands: Code(s): R20.0 - Anesthesia of skin; R20.2 - Paresthesia of skin Category: Medical (3) Trigger finger of left thumb: Code(s): M65.312 - Trigger thumb, left thumb Category: Medical (4) Trigger finger, right ring finger: Code(s): M65.341 - Trigger finger, right ring finger Category: Medical Plan 1. Trigger finger, left thumb Ongoing for approximately 2-3 months Patient would like to explore injection in for left trigger thumb at this time The risks and benefits of a steroid injection including but not limited to risk of damage to blood vessels, nerves, tendons, infection, skin bleaching, failure to improve symptoms, increased pain, and possible need for further injections or other intervention were discussed with the patient and the patient wishes to proceed with the steroid injection. Once consent was obtained, I sterilely prepped the area over the A1 harmony of the flexor tendon sheath of the left thumb. I then injected the flexor tendon sheath with a combination of 1 mL of dexamethasone (4mg/ml), and 1% lidocaine. The patient tolerated the procedure well with no complications. If the patient continues to have locking and catching 4-6 weeks following this injection, they may call to schedule appointment to discuss alternative treatment options Patient is also provided with a comfort cool thumb brace, as she is very worried about her thumb locking in flexion overnight, so that she does not have to sleep with a water bottle in her left hand. Follow-up prn 2. Numbness and tingling in bilateral hands Ongoing for ?a few months? Symptoms intermittent, but daily, worse at night No nerve conduction study on file Patient is referred for nerve conduction study at this time to assess the health of the nerves of the hand and wrist Patient will follow-up after nerve conduction study for discussion of results and further treatment options at that time 3. Trigger finger, right ring finger Ongoing for approximately 2 months No visible or palpable locking or catching observed in the office today No tenderness over the A1 hamrony of the right ring finger Patient elected to have injection into the left thumb at this time, due to this finger being more bothersome for her Patient is advised to continue observation of this finger to see if locking and catching worsens At follow-up appointment for nerve conduction study, we will discuss treatment options for right ring finger trigger finger Coding Level of Care Code New Pt Level 3 (76225) Diagnoses Hand pain M79.643 Numbness and tingling in both hands R20.0; R20.2 Trigger finger of left thumb M65.312 Trigger finger, right ring finger M65.341 CPT Codes Tendon Injection - Tendon Injection 1: [id number] Tendon Sheath Injection ([id number])
[2024-03-31 09:53] VITALS: BMI 30.1
== END 2024-03-31 10:50 | disposition home or self-care (01) ==
DX: M79.641 Pain in right hand (principal); M79.642 Pain in left hand; M65.312 Trigger thumb, left thumb; M65.341 Trigger finger, right ring finger
CPT/HCPCS: 20550; 99203

== ENCOUNTER → 2024-03-31 09:46 | Outpatient (BNVA) | payer OTHER, SELFPAY | DX: M79.641 Pain in right hand (principal); M79.642 Pain in left hand; R20.0 Anesthesia of skin; R20.2 Paresthesia of skin; M65.312 Trigger thumb, left thumb; M65.341 Trigger finger, right ring finger | CPT/HCPCS: 20550; 99202; J1100 ==

== ENCOUNTER 2024-04-04 11:12 | Outpatient (AMB) | payer OTHER, SELFPAY ==
--- NOTE | 2024-04-04 11:27 | A.OFFVIS_ITS ---
Vital Signs 04/04/24 11:28 Height 5 ft 3 in Weight 183 lb 13.848 oz BMI 32.6 BP 130/90 H Blood Pressure Location Rt brachial Position Sitting Pulse 112 H Pulse Source Pulse Oximeter Pulse Oximetry (%) 96 Oxygen Delivery Method Room Air Intake Visit Reasons: 2 month follow up Intake Note: Vesna presents in office today for a scheduled 2 mos FUV. CC; Pt reports that they have been doing OK since their last visit. Pt denies any new concerns or sx at this time. 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 pylori) Plan Patient requesting referral to vascular surgery for lower extremity swelling and large varicose veins. Referral send. Long discussion with patient about treatm ent for H pylori. Patient will try quadruple therapy and will try to finish the medication. Avoid alcohol and any food that contains vinegar to avoid dyspepsia and abdominal discomfort. Continue current treatment with Motegrity. Patient will increase fiber and fluid intake as well as activity to promote better bowel motility. Jesús sent to help with nausea during H pylori treatment. Patient will return to the office in 2 months, sooner on as needed basis. She is agreeable this plan and verbalizes understanding of instructions she was given the opportunity to ask questions and all questions answered. ? Thank you for allowing me participate in her care Orders Referrals Vascular Surgery Referral I73.9 Medications New bismuth subsalicylate 2 tabs PO QID 112 tabs 0RF 14 days A04.8 tetracycline 1,000 mg (2 x 500 mg) PO Q12H 56 caps 0RF A04.8 metronidazole 1,000 mg (2 x 500 mg) PO BID 56 tabs 0RF A04.8 Refilled pantoprazole 20 mg PO BID 180 tabs 3RF prucalopride (Motegrity) 2 mg PO DAILY 30 tabs 3RF K59.04 ondansetron 4 mg PO Q8H PRN 20 tabs 0RF nausea and vomiting R11.0 prucalopride (Motegrity) 2 mg PO DAILY 30 tabs 3RF K59.04 Discontinued docusate sodium Discontinued Reason: Patient no longer taking 100 mg PO BID 60 caps 2RF linaclotide Discontinued Reason: Patient no longer taking 145 mcg PO DAILY 30 caps 2RF TODAY'S VISIT Patient is here today for follow-up. Patient reports that she finished quadruple therapy for H pylori this time she finish the whole treatment and did not stop. Patient currently is taking pantoprazole, however she occasionally will have epigastric burning. Patient reports that she is moving her bowels better now that she is taking Motegrity. Patient reports to be feeling better states that Motegrity is making her bowels very soft like peanut butter and they are not solid. Patient reports that usually she does have a bowel movement every day. Patient denies any nausea or vomiting. Patient reports to be having anxious episodes. Patient had steroid injection into her hand and after that she has stated that she gets very emotional and upset very easy. Patient denies any melena, hematochezia, unintentional weight loss or ribbon like stools. Patient denies any dyspepsia, dysphagia or odynophagia. [facility] Medical History History of COVID-19 Hemorrhoids with complication BMI 32.0-32.9,adult Rash Hx of hemorrhoids Allergic rhinitis Drug induced constipation Abdominal pain Anemia Lumbar degenerative disc disease Surgical History History of hemorrhoidectomy (~06/16/22) History of esophagogastroduodenoscopy (EGD) Hx of colonoscopy History of laparoscopic cholecystectomy History of tubal ligation Family History Father No problems noted. Mother History of kidney cancer Maternal Grandmother Colon cancer Daughter Asthma Social History Household Members: None Housing: House Are you a primary direct care counselor to a significant other at home: No Do you presently have visiting nurse or other home services: No Alcohol intake: never Patient Tobacco Use Status: Never used Tobacco e-Cigarette/Vaping Use: Never Used Second Hand Smoke Exposure: No service: No Current occupational status: unemployed Cognitive needs: No Hearing needs: No Vision needs: No Review of Systems Const Denies weight gain and Denies weight loss ENT Reports no additional complaints, Denies dysphagia and Denies odynophagia Card Reports no additional complaints Resp Reports no additional complaints GI Denies abdominal pain, Denies belching, Denies melena, Denies bloating, Denies change in bowel habits, Denies dysphagia, Denies excessive flatus, Denies dyspepsia, Denies heartburn, Denies diarrhea, Denies loose stools, Denies nause a, Denies odynophagia and Denies vomiting Musc Reports no additional complaints Neuro Reports no additional complaints Psych Reports no additional complaints Endo Reports no additional complaints Physical Exam Vital Signs: Last Vital Signs Pulse 112 H 04/04/24 11:28 BP 130/90 H 04/04/24 11:28 Pulse Ox 96 04/04/24 11:28 Oxygen Delivery Method Room Air 04/04/24 11:28 BMI result Body Mass Index 32.6 Const General: healthy appearing and no acute distress Nutritional Appearance: obese Orientation/consciousness: patient oriented x3 Resp Effort & Inspection: normal respiratory effort, able to speak in complete sentences, no tracheal deviation and symmetric chest movement Auscultation: clear to auscultation bilaterally Cardio Rate: regular rate GI Inspection: Yes normal to inspection, Yes distended and Yes obesity Palpation (GI): Soft to palpation, not firm, nontender and No hepatosplenomegaly present Auscultation: normal bowel sounds General: Yes no CVA tenderness Back/Spine/Pelvis Back: no CVA tenderness Skin General skin exam: elasticity normal, turgor normal and dry skin Neuro General: patient oriented x3 Psych Appearance: grossly normal Mental Status: mental status grossly normal Assessment & Plan Assessment & Plan (1) Chronic abdominal pain: Code(s): R10.9 - Unspecified abdominal pain; G89.29 - Other chronic pain Category: Medical (2) GERD (gastroesophageal reflux disease): Code(s): K21.9 - Gastro-esophageal reflux disease without esophagitis (3) IBS (irritable bowel syndrome): Code(s): K58.9 - Irritable bowel syndrome without diarrhea (4) Helicobacter pylori (H. pylori): Code(s): A04.8 - Other specified bacterial intestinal infections (5) Chronic idiopathic constipation: Code(s): K59.04 - Chronic idiopathic constipation Plan Patient will stop taking pantoprazole and will start taking Nexium every morning half an hour before breakfast. Avoid dietary triggers. Patient no longer is taking sucralfate symptoms only after eating certain food. Avoid dietary triggers and late night snacking. Staying upright for minimum 3 hours after meals discussed with patient. Continue Motegrity, patient may take it after dinner. Patient will take Citrucel in the morning after breakfast. Increase fluid intake and activity to promote better bowel motility. Patient will return to the office in 3 months, sooner on as needed basis. Patient is agreeable to current plan of care and verbalizes understanding of instructions. She was given the opportunity to ask questions and all questions answered. Thank you for allowing me to participate in her care. Medications: New esomeprazole magnesium (Nexium) 40 mg PO DAILY 30 caps 2RF K21.9 - Gastro- esophageal reflux disease without esophagitis Refilled methylcellulose (laxative) (Citrucel) take it with full glass of water 500 mg PO DAILY 90 tabs 2RF K59.00 - Constipation, unspecified Discontinued bismuth subsalicylate Discontinued Reason: Patient no longer taking 2 tabs PO QID 14 days 112 tabs 0RF A04.8 - Other specified bacterial intestinal infections tetracycline Discontinued Reason: Patient no longer taking 1,000 mg (2 x 500 mg) PO Q12H 56 caps 0RF A04.8 - Other specified bacterial intestinal infections [id number]-[id number] 10-250-12.5 mg (Talicia) must administer with a meal/food Discontinued Reason: Patient no longer taking 4 caps (4 x 10-250-12.5 mg) PO Q8H 14 days 168 ea 0RF metronidazole Discontinued Reason: Doctor's Order 1,000 mg (2 x 500 mg) PO BID 56 tabs 0RF A04.8 - Other specified bacterial intestinal infections Coding Level of Care Code Est Pt Level 3 (42068) Diagnoses Chronic abdominal pain R10.9; G89.29 GERD (gastroesophageal reflux disease) K21.9 IBS (irritable bowel syndrome) K58.9 Helicobacter pylori (H. pylori) A04.8 Chronic idiopathic constipation K59.04 Time Spent (min) 25 Comment 15 minutes spent with patient and additional 10 minutes spent reviewing her records
[2024-04-04 11:28] VITALS: BP 130/90; PULSE 112; O2SAT 96; BMI 32.6
== END 2024-04-04 12:13 | disposition home or self-care (01) ==
PROVIDERS: Visit Provider Nurse Practitioner Family
DX: R10.9 Unspecified abdominal pain (principal); G89.29 Other chronic pain; K21.9 Gastro-esophageal reflux disease without esophagitis; K58.9 Irritable bowel syndrome, unspecified; A04.8 Other specified bacterial intestinal infections; K59.04 Chronic idiopathic constipation
CPT/HCPCS: 99213

== ENCOUNTER → 2024-04-04 11:12 | Outpatient (BNVA) | payer OTHER, SELFPAY | PROVIDERS: Visit Provider Nurse Practitioner Family | DX: R10.9 Unspecified abdominal pain (principal); G89.29 Other chronic pain; K21.9 Gastro-esophageal reflux disease without esophagitis; K59.04 Chronic idiopathic constipation; K58.9 Irritable bowel syndrome, unspecified; A04.8 Other specified bacterial intestinal infections | CPT/HCPCS: 99212 ==

== ENCOUNTER 2024-04-25 14:12 | Outpatient (AMB) | payer OTHER, SELFPAY ==
--- NOTE | 2024-04-25 14:12 | MHC.OFFVIS ---
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 She states she has bilateral leg swelling , numbness and cramping. Non diabetic. Feels leg pain when walking and driving. 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 Complaints include pain over varicosities, swelling of lower extremities, cramping, fatigue, and heaviness of the lower extremities. It has been affecting there daily activities including walking. It is noted more so in left leg. She noticed this all began after the of her 3rd child she has a large cluster of left thigh varicosities which have been a source of discomfort for her. Patient denies any previous venous surgery or injections. Patient denies any history of DVT/ PE. Patient denies any history of phlebitis. Trial of compression includes - [id number] They now present for vascular evaluation regarding their varicose veins. [facility] Medical History History of COVID-19 Hemorrhoids with complication BMI 32.0-32.9,adult Rash Hx of hemorrhoids Allergic rhinitis Drug induced constipation Abdominal pain Anemia Lumbar degenerative disc disease Surgical History History of hemorrhoidectomy (~06/16/22) History of esophagogastroduodenoscopy (EGD) Hx of colonoscopy History of laparoscopic cholecystectomy History of tubal ligation Family History Father No problems noted. Mother History of kidney cancer Maternal Grandmother Colon cancer Daughter Asthma Social History Household Members: None Housing: House Are you a primary client care manager to a significant other at home: No Do you presently have visiting nurse or other home services: No Alcohol intake: never Patient Tobacco Use Status: Never used Tobacco e-Cigarette/Vaping Use: Never Used Second Hand Smoke Exposure: No service: No Current occupational status: unemployed Cognitive needs: No Hearing needs: No Vision needs: No Review of Systems Const Reports as per HPI ENT Reports no additional complaints Card Denies chest pain, Denies chest pain at rest and Denies chest pain with activity Resp Denies chest congestion and Denies cough GI Reports no additional complaints Musc Details: pain over varicosities, aching of lower extremities, swelling, cramping, heaviness and tiredness, itching Denies abnormal gait Skin/Breast Reports pruritus and Denies wounds Neuro Reports no additional complaints and Denies abnormal gait Psych Denies no additional complaints Physical Exam Const General: cooperative, healthy appearing and comfortable Orientation/consciousness: oriented to person, oriented to place and oriented to time Neck Carotids: no bruits Chest Chest palpation & inspection: normal inspection of the chest and normal palpation of entire chest wall Resp Effort & Inspection: normal respiratory effort and able to speak in complete sentences Cardio Rate: regular rate Heart sounds: S1 normal heart sound present and S2 normal heart sound present Peripheral pulses: Peripheral pulses 2+ throughout GI Inspection: Yes normal to inspection Skin Other: +2 edema, large rope-like varicosities greater than 4 mm left thigh CEAP Classification C4 - skin color changes Ep - Etiology Primary As - superficial veins P - reflux General skin exam: dry skin Neuro General: oriented to person, oriented to place and oriented to time Extrem Right lower extremity: full ROM, normal capillary refill and edema Left lower extremity: full ROM, normal capillary refill and edema Psych Mental Status: mental status grossly normal Assessment & Plan Assessment & Plan (1) Varicose veins of left lower extremity with inflammation: Code(s): I83.12 - Varicose veins of left lower extremity with inflammation Category: Medical Plan: In short, the patient has evidence of venous insufficiency. I have discussed the pathophysiology with the patient. In addition I have provided informational material regarding venous disease to the patient. We have discussed conservative measures including compression, elevation, and exercise. I have also provided a handout regarding appropriate use of compression stockings and where to purchase good compression stockings as well. I have taken the liberty of ordering venous insufficiency testing with the patient. They will follow up with me after testing. The patient had an opportunity to ask questions regarding the treatment plan. All questions were answered. Imaging studies, laboratory studies and physical exam results were discussed and reviewed in detail. No major barriers to understanding were identified. The patient expressed understanding and agreement with the above treatment plan. The patient is aware they should contact our office by phone for worsening of the current condition or the appearance of new symptoms. Thank you for allowing me to participate in the vascular care of this patient. If you have any questions or concerns regarding the treatment for the above condition please do not hesitate to contact me. The office telephone contact is [phone]. This note is constructed using voice recognition software. While every effort has been made to ensure accuracy, salad counter attendant errors may have been included. Thank you for allowing me to participate in the care of your patient. Yours sincerely, Alphonso Newell MD, FACS, R.P.V.I. Orders: Orders US venous duplex LE BI 1 Week I83.12 - Varicose veins of left lower extremity with inflammation Coding Level of Care Code New Pt Level 4 (54343) Diagnoses Varicose veins of left lower extremity with inflammation I83.12
== END 2024-04-25 14:35 | disposition home or self-care (01) ==
PROVIDERS: Visit Provider Surgery Vascular Surgery
DX: I83.12 Varicose veins of left lower extremity with inflammation (principal)
CPT/HCPCS: 99204

== ENCOUNTER → 2024-04-25 14:12 | Outpatient (BNVA) | payer OTHER, SELFPAY | PROVIDERS: Visit Provider Surgery Vascular Surgery | DX: I83.12 Varicose veins of left lower extremity with inflammation (principal) | CPT/HCPCS: 99202 ==

== ENCOUNTER 2024-05-05 10:26 | Outpatient (REF) | payer OTHER, SELFPAY ==
--- NOTE | ~2024-05-05 | US_ITS ---
EXAMINATION: US LOWER EXTREMITY VENOUS (REFLUX EXAM), BILATERAL CLINICAL INDICATION: Varicose veins of left lower extremity with inflammation COMPARISON: Left lower extremity venous Doppler dated 02/20/2020 TECHNIQUE: Color flow triplex imaging and compression Doppler was performed to evaluate both the deep and the superficial systems bilaterally. To evaluate the superficial system, the examination was performed in the upright position. Color-flow Doppler ultrasound and compression ultrasound were utilized. In addition, maneuvers were utilized to demonstrate reflux. FINDINGS: 1. DEEP VENOUS ULTRASOUND OF THE RIGHT LOWER EXTREMITY: Common Femoral Vein: Compressible, normal respiratory variation and augmented flow. Femoral Vein: Compressible, normal color flow and augmentation. Popliteal Vein: Compressible, normal augmentation. Deep Reflux: There is no evidence of reflux in the deep system in either the common femoral vein, superficial femoral or the popliteal vein. There is no evidence of a Jensen's cyst. 2. SUPERFICIAL ULTRASOUND WITH DOPPLER OF RIGHT LOWER EXTREMITY: GREAT SAPHENOUS VEIN: Saphenofemoral Junction: 0.5 cm; Reflux: 0 ms Proximal Thigh: 0.8 cm; Reflux: 0 ms Mid Thigh: 0.5 cm; Reflux: 0 ms Above Knee: 0.3 cm; Reflux: 0 ms At Knee: 0.3 cm; Reflux: 0 ms Below Knee: 0.2 cm; Reflux: 0 ms Mid Calf: 0.2 cm; Reflux: 0 ms Ankle: 0.4 cm; Reflux: 0 ms SMALL SAPHENOUS VEIN: Saphenopopliteal Junction: 0.3 cm; Reflux: 0 ms Proximal: 0.3 cm; Reflux: 0 ms Distal: 0.3 cm; Reflux: 0 ms PERFORATORS: Location: Distal thigh Size: 0.2; Reflux: 0 ms Location: Distal calf Size: 0.3; Reflux: 0 ms VARICOSITIES: Location: Mid thigh Size: 0.3; Reflux: 0 ms Location: Mid thigh Size: 0.3; Reflux: 0 ms Location: Distal thigh Size: 0.4; Reflux: 0 ms Location: Distal calf Size: 0.3; Reflux: 0 ms 3. DEEP VENOUS ULTRASOUND OF THE LEFT LOWER EXTREMITY: Common Femoral Vein: Compressible, normal respiratory variation and augmented flow. Femoral Vein: Compressible, normal color flow and augmentation. Popliteal Vein: Compressible, normal augmentation. Deep Reflux: There is no evidence of reflux in the deep system in either the common femoral vein, superficial femoral or the popliteal vein. There is no evidence of a Jensen's cyst. 4. SUPERFICIAL ULTRASOUND WITH DOPPLER OF LEFT LOWER EXTREMITY: GREAT SAPHENOUS VEIN: Saphenofemoral Junction: 0.6 cm; Reflux: 0 ms Proximal Thigh: 0.7 cm; Reflux: 0 ms Mid Thigh: 0.4 cm; Reflux: 0 ms Above Knee: 0.2 cm; Reflux: 0 ms At Knee: 0.2 cm; Reflux: 528 ms Below Knee: 0.3 cm; Reflux: 2664 ms Mid Calf: 0.3 cm; Reflux: 2296 ms Ankle: 0.3 cm; Reflux: 0 ms SMALL SAPHENOUS VEIN: Saphenopopliteal Junction: 0.4 cm; Reflux: 0 ms Proximal: 0.3 cm; Reflux: 0 ms Distal: 0.2 cm; Reflux: 0 ms PERFORATORS: Location: Proximal thigh Size: 0.3; Reflux: 0 ms Location: Distal calf Size: 0.3; Reflux: 0 ms VARICOSITIES: Location: Mid thigh Size: 0.3; Reflux: 0 ms Location: Proximal calf Size: 0.3; Reflux: 2216 ms US/US venous duplex LE BI IMPRESSION: 1. No evidence of deep venous thrombosis or reflux in bilateral lower extremities. 2. Segmental incompetence of the left great saphenous vein at the from the knee to the mid calf measuring reflux up to 2664 ms. 3. Competent right great saphenous vein and bilateral small saphenous veins. 4. Varicosities in the bilateral lower extremities, with reflux in one varicosity in the right proximal calf, as above. Electronically signed by: Laury Grissom MD 05/09/2024 04:04 PM EDT
== END 2024-05-05 10:27 | disposition home or self-care (01) ==
LOC: HO.US 10:26
PROVIDERS: PCP Internal Medicine; Visit Provider Surgery Vascular Surgery
DX: I83.12 Varicose veins of left lower extremity with inflammation (principal)
CPT/HCPCS: 93970

== ENCOUNTER 2024-05-10 13:00 | Outpatient (RCR) | payer OTHER, SELFPAY ==
--- NOTE | 2024-04-20 15:24 | MHC.PT.EP ---
[facility] [place] Office [place] Office [place] Office [address] Raissa Rios [address] [phone] F: [phone] F: [phone] F: [phone] F: [phone] Physical Therapy Plan of Care Date of Evaluation: 04/20/24 Date of Surgery: Diagnosis: LUMBAR DEGEN DISC Assessment: 53 YO FEMALE WITH 28 YR H/O PROGRESSIVE LBP W INTERM DIFFUSE LEs RADIC SXS -> RECENT XR REVEALED Marked degenerative disc disease at L5-S1. THE Pt IS UNEMPLOYED AND IS CURRENTLY MOVING TO A NEW APT. OBJECTIVE FINDINGS: DECR POSTURAL AWARENESS, DECR TRUNK AND LEs AROM/FLEXIBILITY, (+) LUMBOSACRAL ASYMMETRY CREATING A LLI EFFECT W DECR CORE STAB, MILD PROX LEs STRENGTH DEFICIT, AND FLUCTUATING PAIN IN HER BECKA THORACOLUMBOSACRAL SOFT TISSUES. THE Pt IS A GOOD CANDIDATE FOR SKILLED PT AT THIS TIME AND SHE AGREES WITH THE PT POC- HER GOAL IS TO DECR LBP-> HE WOULD BENEFIT FROM PT AT THIS TIME TO ADDRESS THE ABOVE FINDINGS, PAIN MGMT, AND DEV A HEP FOR SELF-SX MGMT. Frequency and Duration: The patient will be seen 2 x WK x 4 WKS Short Term Goals: DECR LBP T0 2-3/10 AND LEs RADIC SXS RED BY 75% Pt INDEP W SELF POSTURAL CORRECTION INITIATE HEP-> TAC, STAB Learning And Development Specialist Goals: Pt INDEP W HEP AND SELF SX MGMT TECHN Pt RESUME REG ADLs, FITNESS IMPROVE SLEEP PROX LEs STRENGTH INCR BY 1 GRADE Pt COURTNEYON WFL BODY MECH W 2:2 SIMUL ADLs Treatment Plan: Modalities to reduce pain, spasms and effusion. Manual therapy to restore motion and function. Therapeutic exercise to improve strength and flexibility. Neuromuscular re-education for posture and balance. Therapeutic activities to return to functional activities of daily living. Electronically signed by: POLINA HANKINSPT Please sign and return to therapist. Thank you for your referral.
--- NOTE | 2024-06-20 15:22 | MHC.PT.DC ---
[facility] [place] Office [place] Office [place] Office [address] Raissa Rios [address] [phone] F: [phone] F: [phone] F: [phone] F: [phone] Physical Therapy Discharge Report Diagnosis: LUMBAR DEGEN DISC Date of Surgery: Date of Evaluation: 04/20/24 Date of Discharge: 06/20/24 Treatments to Date: 3 Cancellations to Date: 3 No Shows to Date: 1 Discharge Status: Patient Elected to Stop Visit Non-compliance Discharge Summary: THE Pt HAD DECR COMPLIANCE W HER HEP AND SCHED PT APPTS- SHE DID NOT MEET HER PT GOALS AND IS BEING D/C'D THIS DATE PER THE PT DEPT ATTENDANCE POLICY. Electronically signed by: POLINA HANKINS,PT Please sign and return to therapist. Thank you for your referral.
== END 2024-06-20 15:22 | disposition home or self-care (01) ==
LOC: HO.PT 13:00
PROVIDERS: PCP Internal Medicine; Visit Provider Internal Medicine
DX: M51.36 Other intervertebral disc degeneration, lumbar region (principal)
CPT/HCPCS: 97110; 97140; 97162

== ENCOUNTER 2024-06-01 09:02 | Outpatient (AMB) | payer OTHER, SELFPAY ==
--- NOTE | 2024-06-01 09:10 | A.OFFVIS_ITS ---
Intake Visit Reasons: follow up s/p 05/05/24 Intake Note: Patient presents for follow up 05/05/24. Patient states she gets bilateral ankle swelling. No other complaints. Allergies codeine [From Tylenol-Codeine #3] Allergy (Intermediate, Verified 06/01/24 09:11) HIVES, agitation omeprazole [OMEPRAZOLE] Allergy (Intermediate, Verified 06/01/24 09:11) abd pain/bloating penicillin G Allergy (Intermediate, Verified 06/01/24 09:11) rash morphine [MORPHINE] Adverse Reaction (Intermediate, Verified 06/01/24 09:11) agitation, flips out HPI HPI follow up s/p 05/05/24: Details: Very pleasant 53-year-old female presents for follow-up regarding venous insufficiency. In general she reports that her lower extremity swelling discomfort appear to be doing relatively well. She does have a small cluster varicosities in the left thigh which appear to be more of spider telangiectasias. She has been using her compression but overall feels pretty good. She now presents for follow-up with venous insufficiency testing [facility] Medical History History of COVID-19 Hemorrhoids with complication BMI 32.0-32.9,adult Rash Hx of hemorrhoids Allergic rhinitis Drug induced constipation Abdominal pain Anemia Lumbar degenerative disc disease Surgical History History of hemorrhoidectomy (~06/16/22) History of esophagogastroduodenoscopy (EGD) Hx of colonoscopy History of laparoscopic cholecystectomy History of tubal ligation Family History Father No problems noted. Mother History of kidney cancer Maternal Grandmother Colon cancer Daughter Asthma Social History Household Members: None Housing: House Are you a primary health care administrator to a significant other at home: No Do you presently have visiting nurse or other home services: No Alcohol intake: never Patient Tobacco Use Status: Never used Tobacco e-Cigarette/Vaping Use: Never Used Second Hand Smoke Exposure: No service: No Current occupational status: unemployed Cognitive needs: No Hearing needs: No Vision needs: No Review of Systems Const Reports as per HPI ENT Reports no additional complaints Card Denies chest pain, Denies chest pain at rest and Denies chest pain with activity Resp Denies chest congestion and Denies cough GI Reports no additional complaints Musc Details: pain over varicosities, aching of lower extremities, swelling, cramping, heaviness and tiredness, itching Denies abnormal gait Skin/Breast Reports pruritus and Denies wounds Neuro Reports no additional complaints and Denies abnormal gait Psych Denies no additional complaints Physical Exam Const General: cooperative, healthy appearing and comfortable Orientation/consciousness: oriented to person, oriented to place and oriented to time Neck Carotids: no bruits Chest Chest palpation & inspection: normal inspection of the chest and normal palpation of entire chest wall Resp Effort & Inspection: normal respiratory effort and able to speak in complete sentences Cardio Rate: regular rate Heart sounds: S1 normal heart sound present and S2 normal heart sound present Peripheral pulses: Peripheral pulses 2+ throughout GI Inspection: Yes normal to inspection Skin Other: +2 edema, small cluster of veins and left thigh General skin exam: dry skin Neuro General: oriented to person, oriented to place and oriented to time Extrem Right lower extremity: full ROM, normal capillary refill and edema Left lower extremity: full ROM, normal capillary refill and edema Psych Mental Status: mental status grossly normal Results Reviewed Results Reviewed: Brief summary of venous insufficiency testing is as follows: right great saphenous vein: negative right small saphenous vein: negative right accessory vein: none present left great saphenous vein: Focally positive in left calf but overall vein is small diameter left small saphenous vein: negative left accessory vein: none present Please note there is no evidence of any venous aneurysms or significant tortuosity Assessment & Plan Assessment & Plan (1) Varicose veins of left lower extremity with inflammation: Code(s): I83.12 - Varicose veins of left lower extremity with inflammation Category: Medical Plan: In short patient is essentially negative for any significant venous insufficiency. At the current time would continue conservative measures including compression elevation and exercise. Patient will follow up with us on an as-needed basis. Thank you for allowing us to assist in this very kind patient's care. If there are any questions or concerns please do not hesitate to contact us Coding Level of Care Code Est Pt Level 4 (12190) Diagnoses Varicose veins of left lower extremity with inflammation I83.12
== END 2024-06-01 09:53 | disposition home or self-care (01) ==
PROVIDERS: PCP Internal Medicine; Visit Provider Surgery Vascular Surgery
DX: I83.12 Varicose veins of left lower extremity with inflammation (principal)
CPT/HCPCS: 99214

== ENCOUNTER → 2024-06-01 09:02 | Outpatient (BNVA) | payer OTHER, SELFPAY | PROVIDERS: PCP Internal Medicine; Visit Provider Surgery Vascular Surgery | DX: I83.12 Varicose veins of left lower extremity with inflammation (principal); M25.472 Effusion, left ankle; M25.471 Effusion, right ankle | CPT/HCPCS: 99212 ==

== ENCOUNTER 2024-06-28 11:24 | Outpatient (AMB) | payer OTHER, SELFPAY ==
[2024-06-28 11:30] VITALS: BP 130/70; PULSE 86; O2SAT 96; BMI 32.6
--- NOTE | 2024-06-28 11:30 | MHC.OFFVIS ---
Vital Signs 06/28/24 11:30 Height 5 ft 3 in Weight 183 lb 13.848 oz BMI 32.6 BP 130/70 Blood Pressure Location Rt brachial Position Sitting Pulse 86 Pulse Source Pulse Oximeter Pulse Oximetry (%) 96 Oxygen Delivery Method Room Air Intake Visit Reasons: 3 mos FUV. Intake Note: PRESCRIPTIONS LAST GENERATED esomeprazole magnesium 40 mg capsule,delayed release?(Nexium)?40 mg PO DAILY 30 caps 2RF Gulshan,Minnie D 04/04/24 12:03 (Transmitted) methylcellulose (laxative) 500 mg tablet?(Citrucel)?500 mg PO DAILY 90 tabs 2RF Gulshan,Minnie D 04/04/24 12:03 (Transmitted) Pt is still taking both of these medications as intended. Relevant Flags or Indicators ? Requires Dairy Consultant? Iza Malagon presents in office today for a scheduled 3 mos FUV. CC; No recent labs, diagnostics, placed. ? Relevant GI Sx as reported per pt? None ? Hx of any recent surgeries? None Dairy Consultant Required: No Allergies codeine [From Tylenol-Codeine #3] Allergy (Intermediate, Verified 06/28/24 11:32) HIVES, agitation omeprazole [OMEPRAZOLE] Allergy (Intermediate, Verified 06/28/24 11:32) abd pain/bloating penicillin G Allergy (Intermediate, Verified 06/28/24 11:32) rash morphine [MORPHINE] Adverse Reaction (Intermediate, Verified 06/28/24 11:32) agitation, flips out HPI HPI 3 mos FUV.: Details: LAST VISIT: Chronic abdominal pain GERD (gastroesophageal reflux disease) IBS (irritable bowel syndrome) Helicobacter pylori (H. pylori) Chronic idiopathic constipation Plan Patient will stop taking pantoprazole and will start taking Nexium every morning half an hour before breakfast. Avoid dietary triggers. Patient no longer is taking sucralfate symptoms only after eating certain food. Avoid dietary triggers and late night snacking. Staying upright for minimum 3 hours after meals discussed with patient. Continue Motegrity, patient may take it after dinner. Patient will take Citrucel in the morning after breakfast. Increase fluid intake and activity to promote better bowel motility. Patient will return to the office in 3 months, sooner on as needed basis. Patient is agreeable to current plan of care and verbalizes understanding of instructions. She was given the opportunity to ask questions and all questions answered. ? Thank you for allowing me to participate in her care. Medications New esomeprazole magnesium (Nexium) 40 mg PO DAILY 30 caps 2RF K21.9 Refilled methylcellulose (laxative) (Citrucel) take it with full glass of water 500 mg PO DAILY 90 tabs 2RF K59.00 TODAY'S VISIT Patient is here today for follow-up. Patient reports that since she started taking Nexium she is feeling better. She continues to have occasional postprandial abdominal and epigastric pain and bloating, however for the most part she has to when well. Patient is moving her bowels better, however she still feels like she has to push in order to have bowel movement. Patient reports that she is drinking fluids. Patient denies any nausea or vomiting. Patient denies any dyspepsia, dysphagia or odynophagia. Patient denies any melena, hematochezia, unintentional weight loss or ribbon like stools. Patient had colonoscopy in May of 2021 and 5 year follow-up was recommended. Patient denies any other GI concerning symptoms. [facility] Medical History History of COVID-19 Hemorrhoids with complication BMI 32.0-32.9,adult Rash Hx of hemorrhoids Allergic rhinitis Drug induced constipation Abdominal pain Anemia Lumbar degenerative disc disease Surgical History History of hemorrhoidectomy (~06/16/22) History of esophagogastroduodenoscopy (EGD) Hx of colonoscopy History of laparoscopic cholecystectomy History of tubal ligation Family History Father No problems noted. Mother History of kidney cancer Maternal Grandmother Colon cancer Daughter Asthma Social History Household Members: None Housing: House Are you a primary critical care nurse specialist to a significant other at home: No Do you presently have visiting nurse or other home services: No Alcohol intake: never Patient Tobacco Use Status: Never used Tobacco e-Cigarette/Vaping Use: Never Used Second Hand Smoke Exposure: No service: No Current occupational status: unemployed Cognitive needs: No Hearing needs: No Vision needs: No Review of Systems Const Denies weight gain and Denies weight loss ENT Reports no additional complaints, Denies dysphagia and Denies odynophagia Card Reports no additional complaints Resp Reports no additional complaints GI Denies abdominal pain, Denies belching, Denies melena, Denies bloating, Denies change in bowel habits, Denies dysphagia, Denies excessive flatus, Denies dyspepsia, Denies heartburn, Denies diarrhea, Denies loose stools, Denies nausea, Denies odynophagia and Denies vomiting Musc Reports no additional complaints Neuro Reports no additional complaints Psych Reports no additional complaints Endo Reports no additional complaints Physical Exam Vital Signs: Last Vital Signs Pulse 86 06/28/24 11:30 BP 130/70 06/28/24 11:30 Pulse Ox 96 06/28/24 11:30 Oxygen Delivery Method Room Air 06/28/24 11:30 BMI result Body Mass Index 32.6 Const General: healthy appearing and no acute distress Nutritional Appearance: obese Orientation/consciousness: patient oriented x3 Resp Effort & Inspection: normal respiratory effort, able to speak in complete sentences, no tracheal deviation and symmetric chest movement Auscultation: clear to auscultation bilaterally Cardio Rate: regular rate GI Inspection: Yes normal to inspection, Yes distended and Yes obesity Palpation (GI): Soft to palpation, not firm, nontender and No hepatosplenomegaly present Auscultation: normal bowel sounds General: Yes no CVA tenderness Back/Spine/Pelvis Back: no CVA tenderness Skin General skin exam: elasticity normal, turgor normal and dry skin Neuro General: patient oriented x3 Psych Appearance: grossly normal Mental Status: mental status grossly normal Assessment & Plan Assessment & Plan (1) Chronic abdominal pain: Code(s): R10.9 - Unspecified abdominal pain; G89.29 - Other chronic pain Category: Medical (2) GERD (gastroesophageal reflux disease): Code(s): K21.9 - Gastro-esophageal reflux disease without esophagitis Qualifiers: Esophagitis presence: esophagitis presence not specified Qualified Code(s): K21.9 - Gastro-esophageal reflux disease without esophagitis (3) IBS (irritable bowel syndrome): Code(s): K58.9 - Irritable bowel syndrome, unspecified Qualifiers: Irritable bowel syndrome type: without diarrhea Qualified Code(s): K58.9 - Irritable bowel syndrome, unspecified (4) Helicobacter pylori (H. pylori): Code(s): A04.8 - Other specified bacterial intestinal infections (5) Chronic idiopathic constipation: Code(s): K59.04 - Chronic idiopathic constipation Plan Patient continue Nexium daily. Continue avoiding dietary triggers and late night snacking. Staying upright for minimum 3 hours after meals discussed with patient. Continue taking Motegrity. Patient can take Dulcolax to help her move her bowels better as she continues to have occasional constipation. Patient will follow-up in the office in 6 months, sooner on as needed basis. She is agreeable to this plan and verbalizes understanding of instructions. She was given the opportunity to ask questions and all questions answered. Thank you for allowing me to participate her care Medications: New bisacodyl (Dulcolax (bisacodyl)) 10 mg (2 x 5 mg) PO BEDTIME 180 tabs 4RF Refilled esomeprazole magnesium (Nexium) 40 mg PO DAILY 90 caps 2RF K21.9 - Gastro-esophageal reflux disease without esophagitis prucalopride (Motegrity) 2 mg PO DAILY 90 tabs 3RF K59.04 - Chronic idiopathic constipation Coding Level of Care Code Est Pt Level 3 (08872) Diagnoses Chronic abdominal pain R10.9; G89.29 Gastroesophageal reflux disease, unspecified whether esophagitis present K21.9 Esophagitis presence: esophagitis presence not specified Irritable bowel syndrome without diarrhea K58.9 Irritable bowel syndrome type: without diarrhea Helicobacter pylori (H. pylori) A04.8 Chronic idiopathic constipation K59.04 Time Spent (min) 25 Comment 15 minutes spent with patient and additional 10 minutes spent reviewing with patient
== END 2024-06-28 12:14 | disposition home or self-care (01) ==
LOC: HO.HGI 11:25
PROVIDERS: Visit Provider Nurse Practitioner Family
DX: R10.9 Unspecified abdominal pain (principal); G89.29 Other chronic pain; K21.9 Gastro-esophageal reflux disease without esophagitis; K58.9 Irritable bowel syndrome, unspecified; A04.8 Other specified bacterial intestinal infections; K59.04 Chronic idiopathic constipation
CPT/HCPCS: 99213

== ENCOUNTER → 2024-06-28 11:24 | Outpatient (BNVA) | payer OTHER, SELFPAY | PROVIDERS: Visit Provider Nurse Practitioner Family | DX: K59.04 Chronic idiopathic constipation (principal); K21.9 Gastro-esophageal reflux disease without esophagitis; R10.9 Unspecified abdominal pain; G89.29 Other chronic pain; K58.1 Irritable bowel syndrome with constipation; A04.8 Other specified bacterial intestinal infections | CPT/HCPCS: 99212 ==

== ENCOUNTER → 2024-07-14 14:45 | Outpatient (BNV) | payer OTHER, SELFPAY | PROVIDERS: PCP Internal Medicine; Visit Provider Internal Medicine | DX: Z12.31 Encounter for screening mammogram for malignant neoplasm of breast (principal) | CPT/HCPCS: 77063; 77067 ==

== ENCOUNTER 2024-07-14 14:51 | Outpatient (REF) | payer OTHER, SELFPAY ==
--- NOTE | ~2024-07-14 | MM_ITS ---
EXAMINATION: MM SCREENING DIGITAL BREAST TOMOSYNTHESIS, BILATERAL CLINICAL INFORMATION: Screening. Asymptomatic. COMPARISON: Mammography: Comparison is made with available priors TECHNIQUE: Digital breast mammography with tomosynthesis is performed in both the craniocaudal and mediolateral oblique views along with computer-aided detection (CAD). FINDINGS: There are scattered areas of fibroglandular density (ACR BI-RADS breast composition Category b). There are no significant masses, abnormal calcifications, or other abnormalities. MM/MM tomosynthesis screening BI IMPRESSION: No mammographic evidence of malignancy. ASSESSMENT: BI-RADS BI-RADS 1 - Negative RECOMMENDATION: Routine annual mammography screening. 1 year F/U This examination should not preclude the clinical evaluation of a suspicious palpable abnormality. This patient's information was entered into a reminder system with a target due date for their next mammogram. Electronically signed by: Anika Alonzo DO 07/25/2024 02:21 PM ENRIQUE
== END 2024-07-14 14:52 | disposition home or self-care (01) ==
LOC: HO.MAMMO 14:51
PROVIDERS: PCP Internal Medicine; Visit Provider Internal Medicine
DX: Z12.31 Encounter for screening mammogram for malignant neoplasm of breast (principal)
CPT/HCPCS: 77063; 77067

== ENCOUNTER 2024-08-31 12:52 | Outpatient (AMB) | payer OTHER, SELFPAY ==
--- NOTE | 2024-08-31 12:59 | MHC.OFFVIS ---
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 Currently sexually active. Denies any vaginal dryness or irritation. STI testing offered; she declines. Attempting to eat a healthy diet with calcium and vitamin D and stays active with exercise. Last pap smear; 2022. Last mammogram; 2023. Colonoscopy is UTD. Denies any family history of breast or ovarian. FH colon cancer. [facility] Medical History (Updated 08/31/24 @ 13:20 by Araceli Noonan CNM) Endometrial cystic hyperplasia History of COVID-19 Hemorrhoids with complication BMI 32.0-32.9,adult Rash Hx of hemorrhoids Allergic rhinitis Drug induced constipation Abdominal pain Anemia Lumbar degenerative disc disease Surgical History History of hemorrhoidectomy (~06/16/22) History of esophagogastroduodenoscopy (EGD) Hx of colonoscopy History of laparoscopic cholecystectomy History of tubal ligation Family History Father No problems noted. Mother History of kidney cancer Maternal Grandmother Colon cancer Daughter Asthma Social History Household Members: None Housing: House Are you a primary career agent to a significant other at home: No Do you presently have visiting nurse or other home services: No Alcohol intake: never Patient Tobacco Use Status: Never used Tobacco e-Cigarette/Vaping Use: Never Used Second Hand Smoke Exposure: No service: No Current occupational status: unemployed Cognitive needs: No Hearing needs: No Vision needs: No Female Reproductive History Menstrual control method: permanent sterilization Permanent Sterilization: BTL Menopause type: natural Total pregnancies: 5 Full term: 4 Number of Living Children: 4 Ab spontaneous: 1 Date of last pap smear: 06/03/23 (neg pap and hpv) Date of Mammogram: 07/14/24 (Birad 1) Review of Systems Const All systems reviewed & are unremarkable except as noted in HPI and below Reports as per HPI Eyes Reports no additional complaints ENT Reports no additional complaints Card Reports no additional complaints Resp Reports no additional complaints GI Reports as per HPI and Reports no additional complaints Reports as per HPI Musc Reports no additional complaints Skin/Breast Reports as per HPI Neuro Reports no additional complaints Psych Reports no additional complaints Endo Reports no additional complaints Tk/Lymph Reports no additional complaints Aller/Immun Reports no additional complaints Physical Exam Vital Signs: Last Vital Signs BP 110/74 08/31/24 13:01 BMI result Body Mass Index 33.7 Const General: cooperative, healthy appearing, no acute distress, well developed and alert Orientation/consciousness: patient oriented x3 HEENT Head: Yes normal to inspection Eyes General: appearance normal, both eyes and all related structures Neck Neck: Yes normal visual inspection Thyroid: Thyroid normal Chest Chest palpation & inspection: normal inspection of the chest and other (no puckering, dimpling, peau de orange, retraction, discharge, masses) Breast/axilla inspection: normal inspection of the breasts Breast/axilla palpation: normal palpation of the breasts Resp Effort & Inspection: normal respiratory effort GI Inspection: Yes normal to inspection Palpation (GI): Soft to palpation Rectal Exam - Female: deferred General: Yes bladder normal to palpation External Female Exam: normal external appearance and normal appearance of the urethra Speculum Exam - Vagina: normal appearance of the vagina, normal palpation, normal vaginal discharge and vagina atrophic Speculum Exam - Cervix: normal appearance of the cervix and normal palpation Bimanual exam- vagina & uterus: normal bimanual exam, normal palpation, uterine size normal, bladder normal to palpation, normal palpation and non-tender Bimanual Exam- Adnexa, other: no masses Skin General skin exam: no rashes or lesions noted Rashes: no rashes Neuro General: patient oriented x3 Cognition (Neuro): normal cognition Extrem General: Yes normal to inspection Psych Attitude: cooperative Thought process: Normal thought process present Assessment & Plan Assessment & Plan (1) Encounter for well woman exam with routine gynecological exam: Code(s): Z01.419 - Encounter for gynecological examination (general) (routine) without abnormal findings Category: Medical Plan Discussed: Current recommendations for pap smears per ASCCP guidelines. Breast awareness, periodic self breast exams and yearly mammogram. Maintain a healthy lifestyle, well balanced diet including Calcium 1,200 mg and Vitamin D 600 IU daily, and routine exercise. Continue with mild soap or no soap at all, cool cloth applied to the irritated area, loose cotton white underwear. Follow up with Dr. Salcedo regarding chronic itching, consider possible Dermatology referral. Contact the office with any postmenopausal bleeding. Patient verbalizes understanding and agrees to the plan of care. She was given opportunity to ask questions and all questions were answered to the best of my ability. 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 This note is constructed using voice recognition software. While every effort has been made to ensure accuracy, housing and residence life director errors may have been included. Coding Level of Care Code Est Pt Prev Care 40-64y(89578) Diagnoses Encounter for well woman exam with routine gynecological exam Z01.419
[2024-08-31 13:01] VITALS: BP 110/74; BMI 33.7
== END 2024-08-31 13:37 | disposition home or self-care (01) ==
LOC: HO.HWS 12:52
PROVIDERS: PCP Internal Medicine; Visit Provider Advanced Practice Midwife
DX: Z01.419 Encounter for gynecological examination (general) (routine) without abnormal findings (principal)
CPT/HCPCS: 99396; 99459

== ENCOUNTER → 2024-08-31 12:52 | Outpatient (BNVA) | payer OTHER, SELFPAY | PROVIDERS: PCP Internal Medicine; Visit Provider Advanced Practice Midwife | DX: Z01.419 Encounter for gynecological examination (general) (routine) without abnormal findings (principal) | CPT/HCPCS: 99396; 99459 ==

== ENCOUNTER 2024-11-08 14:48 | Outpatient (AMB) | payer OTHER, SELFPAY ==
[2024-11-08 14:54] VITALS: BP 130/82; BMI 34.2
--- NOTE | 2024-11-08 14:54 | A.OFFPC_ITS ---
Vital Signs 11/08/24 14:54 Height 5 ft 3 in Weight 193 lb BMI 34.2 BP 130/82 Blood Pressure Location Lt brachial Position Sitting Intake Visit Reasons: Med review Etcher Hand Required: No Accompanied by: Daughter Allergies codeine [From Tylenol-Codeine #3] Allergy (Intermediate, Verified 11/08/24 15:00) HIVES, agitation omeprazole [OMEPRAZOLE] Allergy (Intermediate, Verified 11/08/24 15:00) abd pain/bloating penicillin G Allergy (Intermediate, Verified 11/08/24 15:00) rash morphine [MORPHINE] Adverse Reaction (Intermediate, Verified 11/08/24 15:00) agitation, flips out Medication List - Last Reconciled 11/08/24 by Sejal Watkins MD amitriptyline 25 mg PO BEDTIME PRN 90 days bisacodyl (Dulcolax (bisacodyl)) 10 mg (2 x 5 mg) PO BEDTIME cetirizine 10 mg PO DAILY PRN 90 days esomeprazole magnesium (Nexium) 40 mg PO DAILY hydrocortisone 2.5% (Anusol-HC) 1 appl LA QID PRN loratadine 10 mg PO DAILY PRN 90 days methylcellulose (laxative) (Citrucel) 500 mg PO DAILY montelukast 10 mg PO DAILY ondansetron 4 mg PO Q8H PRN oxycodone-acetaminophen 5-325 mg 1 tab PO Q8H PRN 30 days prucalopride (Motegrity) 2 mg PO DAILY sodium chloride 0.65% (Saline Nasal) 1 spray intranasal DIRECTED triamcinolone acetonide 0.1% 1 appl topical BID-TID 30 days Tobacco use date assessed: 11/08/24 Dental Screening Dental Screen Date: 11/08/24 Did you have a dental visit in the last 12 months?: Yes Did you have a dental problem in the last 6 months where you did not have access to dental care?: No Was dental information given to patient?: Patient has dentist HPI HPI Comments History of Present Illness Details The patient is a 54-year-old female presenting with persistent pruritus and discomfort in the anal area. She reports that the pruritus has been ongoing for some time and seeks relief from the constant itching. Over one year ago, she underwent surgery for hemorrhoid removal, which she believes may have affected her rectal function, noting difficulty during defecation. She experiences hip pain frequently, which she attributes to arthritis. The pain is described as swelling and discomfort radiating to both hips, affected by her arthritis, and varies in intensity. Additionally, she reports some concern about intermittent sweating, which she attributes to systemic changes but is not directly linked to her skin symptoms. Despite previous evaluations suggesting no significant vascular concerns, discomfort in her veins remains a persistent worry. [facility] Medical History (Updated 11/08/24 @ 15:13 by Sejal Watkins MD) Endometrial cystic hyperplasia History of COVID-19 Hemorrhoids with complication BMI 32.0-32.9,adult Rash Hx of hemorrhoids Allergic rhinitis Drug induced constipation Abdominal pain Anemia Lumbar degenerative disc disease Surgical History History of hemorrhoidectomy (~06/16/22) History of esophagogastroduodenoscopy (EGD) Hx of colonoscopy History of laparoscopic cholecystectomy History of tubal ligation Family History Father No problems noted. Mother History of kidney cancer Maternal Grandmother Colon cancer Daughter Asthma Social History Household Members: None Housing: House Are you a primary director career services to a significant other at home: No Do you presently have visiting nurse or other home services: No Alcohol intake: never Patient Tobacco Use Status: Never used Tobacco e-Cigarette/Vaping Use: Never Used Second Hand Smoke Exposure: No service: No Current occupational status: unemployed Cognitive needs: No Hearing needs: No Vision needs: No Questionnaire PHQ-9 Over the last 2 weeks, how often have you been bothered by any of the following problems? 1. Little interest or pleasure in doing things: several days 2. Feeling down, depressed, or hopeless: several days 3. Trouble falling or staying asleep, or sleeping too much: more than half the days 4. Feeling tired or having little energy: several days 5. Poor appetite or overeating: several days 6. Feeling bad about yourself - or that you are a failure or have let yourself or your family down: several days 7. Trouble concentrating on things, such as reading the newspaper or watching television: several days 8. Moving or speaking so slowly that other people could have noticed. Or the opposite - being so fidgety or restless that you have been moving around a lot more than usual: nearly every day 9. Thoughts that you would be better off or of hurting yourself in some way: not at all Total score: 11 Depression Screening Interpretation: Positive (No suicidal thoughts.) Depression Screening Follow-up: Existing condition, In treatment and Follow-up Visit Requested Depression Screening Done: Yes Source: Developed by Drs. Jose A Wilson, Tami Salcido, Bhavin Smith and colleagues, with an educational sean from [employer]. Thrive Questionnaire Date Thrive assessed: 11/08/24 I am a: Patient What is your living situation today?: I have a steady place to live Within the past 12 months, did the food you bought not last and you didn't have the money to get more?: Never true Within the past 12 months, did you worry whether your food would run out before you got money to buy more?: Never true Do you have trouble paying for medicines?: No Do you have trouble getting transportation to medical appointments?: No Do you have trouble paying your heating and electricity bill?: No Do you have trouble taking care of your child, family member or friend?: No Do you have trouble with day-to-day activities such as bathing, preparing meals, shopping, managing finances, etc.?: No Are you currently unemployed and looking for a job?: No Are you interested in more education?: No Please select the resources that you would like help with: None Currently or been in a relationship where the following occur: No concerns reported THRIVE Score: 0 AUDIT C Alcohol Use Questionnaire (AUDIT-C) 1. How often do you have a drink containing alcohol?: Never Total Score: 0 TUCKER-7 AMB Questionnaire TUCKER-7 Date TUCKER - 7 assessed: 11/08/24 Feeling nervous, anxious, or on edge: 1 = Several days Not being able to stop or control worryin = Not at all Worrying too much about different things: 1 = Several days Trouble relaxin = Not at all Being so restless that it is hard to sit still: 0 = Not at all Becoming easily annoyed or irritable: 1 = Several days Feeling afraid as if something awful might happen: 0 = Not at all Total TUCKER-7 score (0-4 normal; 5-9 mild; 10-14 moderate; 15-21 severe): 3 Source: Developed by Drs. Jose A Wilson, Tami Salcido, Bhavin Smith and colleagues, with an educational sean from [employer]. Review of Systems Const All systems reviewed & are unremarkable except as noted in HPI and below Card Denies chest pain at rest, Denies chest pain with activity, Denies edema, Denies irregular heart rhythm, Denies claudication, Denies dyspnea, Denies dyspnea on exertion, Denies orthopnea, Denies paroxysmal nocturnal dyspnea and Denies slow heart rate Resp Denies cough, Denies dyspnea and Denies dyspnea on exertion GI Denies abdominal pain, Denies change in bowel habits, Denies excessive flatus, Denies nausea and Denies vomiting Denies urinary incontinence, Denies urinary hesitancy and Denies urinary urgency Neuro Denies lack of coordination Physical exam (Primary Care) Vital Signs: Last Vital Signs BP 130/82 11/08/24 14:54 BMI result Body Mass Index 34.2 BMI Assessment/Plan discussion: High BMI High, discussed plan: lifestyle, weight reduction, dietary and physical activity Tobacco/Smoking Status: Tobacco use Status Tobacco use date assessed 11/08/24 11/08/24 15:01 Patient Tobacco Use Status Never used Tobacco 11/08/24 15:01 Tobacco use type 05/31/24 10:39 e-Cigarette/Vaping Use Never Used 11/08/24 15:01 PHQ-9: PHQ-9 Score PHQ-9: Total score 11 11/08/24 15:07 Depression Screening Interpretation: Positive (No suicidal thoughts.) Depression Screening Follow-up: Existing condition, In treatment and Follow-up Visit Requested Thrive Assessment: Date of Thrive Assessment Date Thrive assessed 11/08/24 11/08/24 15:01 Currently or been in a relationship where the following occur: No concerns reported Neck Neck: Yes normal visual inspection and Yes supple Cardio Jugular venous distension: no JVD Rate: regular rate Rhythm: regular rhythm Heart sounds: S1 normal heart sound present and S2 normal heart sound present Extrem General: Yes full ROM Coding Level of Care Code Est Pt Level 4 (07560) Complex EM visit Add On G2211 Diagnoses Right hip pain M25.551 Left hip pain M25.552 Right ankle pain M25.571 Left ankle pain M25.572 Lumbar degenerative disc disease M51.36 Seasonal allergic rhinitis due to pollen J30.1 Allergic rhinitis trigger: pollen Allergic rhinitis seasonality: seasonal Drug induced constipation K59.03 Time Spent (min) 22 Assessment & Plan Assessment & Plan (1) Right hip pain: Code(s): M25.551 - Pain in right hip Category: Medical (2) Left hip pain: Code(s): M25.552 - Pain in left hip Category: Medical (3) Right ankle pain: Code(s): M25.571 - Pain in right ankle and joints of right foot Category: Medical (4) Left ankle pain: Code(s): M25.572 - Pain in left ankle and joints of left foot Category: Medical (5) Lumbar degenerative disc disease: Code(s): M51.36 - Other intervertebral disc degeneration, lumbar region Category: Medical (6) Allergic rhinitis: Code(s): J30.9 - Allergic rhinitis, unspecified Category: Medical Qualifiers: Allergic rhinitis trigger: pollen Allergic rhinitis seasonality: seasonal Qualified Code(s): J30.1 - Allergic rhinitis due to pollen (7) Drug induced constipation: Code(s): K59.03 - Drug induced constipation Category: Medical Plan I recommended a multifaceted approach, including prescribing topical c orticosteroid cream to manage pruritus and scheduling imaging studies to evaluate her longstanding hip and foot pain, considering potential arthritic involvement. Furthermore, blood tests to assess kidney function and a stool sample for parasitic evaluation were advised. These tests aim to uncover any underlying issues and contribute to a more effective management plan. The comprehensive blood screening, including a lipid panel, is advised to determine her overall health status. The patient understands and agrees with the plan, including fasting requirements for laboratory assessments. Patient was informed and verbally consented to the use of an ambient scribe for clinic note documentation during this visit. I explained to the patient the likely causes of her itching and discomfort, em phasizing the potential role of past hemorrhoid surgery on her rectal sphincter dysfunction. We discussed the use of a topical corticosteroid to alleviate the itching and the importance of obtaining diagnostic imaging to assess her hip and foot pain. Evaluating kidney function through blood work was advised to rule out potential systemic contributions to her symptoms. I highlighted the low probability of finding significant factors from the stool sample, while affirming its purpose to rule out parasitic infections. The patient was informed about fasting requirements for comprehensive blood screening, and she agreed to proceed with the recommended studies and follow-up appointments based on the outcomes of these evaluations. Orders: Orders Ova and Parasite Today L29.0 - Pruritus ani Lipid Panel Today E78.5 - Hyperlipidemia, unspecified XR hip LT min 2V Today M25.552 - Pain in left hip XR hip RT min 2V Today M25.551 - Pain in right hip XR ankle LT 2V Today M25.572 - Pain in left ankle and joints of left foot XR ankle RT 2V Today M25.571 - Pain in right ankle and joints of right foot Comprehensive [place]. Panel Fast Today M51.36 - Other intervertebral disc degeneration, lumbar region Medications: Refilled hydrocortisone 2.5% (Anusol-HC) 1 appl LA QID PRN 30 grams 2RF hemorrhoids K64.9 - Unspecified hemorrhoids Patient Instructions: - Use the prescribed topical cream as directed to manage itching. - Follow fasting requirements for scheduled comprehensive blood work. - Schedule imaging studies for hip and foot evaluation. - Complete the stool sample as instructed to assess for parasitic infections. - Monitor symptoms and report any significant changes or new symptoms. - Ensure follow-up appointments are maintained for ongoing assessment and management.
--- OUTSIDE RECORDS SUMMARY | 2024-11-08 16:58 | XMS_ITS | Encounter Summary ---
Author Organization [employer] Address [address] [facility] [address] [place] [address] Care Team Providers Care Environmental Monitoring Technician Name Role Phone Unavailable Primary Care Provider Unavailabl e Reason for Visit * Reason Comments Dental Pain Pain on ext site Encounter Details Date Type Department Care Team (Late st Contact Info) Description 08/08/2024 3:30 PM EST Office Visit [facility] [address] [place] [address] LiKary lazarocherri [address] [place] [address] Social History Tobacco Use Types Packs/Day Years Used Date Smoking Tobacco: Never Passive Smoke Exposure: Never Smokeless Tobacco: Never Alcohol Use Standard Drinks/Week Comments Defer 0 (1 standard drink = 0.6 oz pur e alcohol) Comments Unknown Sex and Gender Information Value Date Recorded Sex Assigned at Female 06/22/2022 10:15 AM EDT Legal Sex Female 10:15 AM EDT Gender Identity Female 06/21/2023 9:03 AM EDT Sexual Orientation Choose not to disclose 2022 9:03 AM EDT documented as of this encounter Progress Notes * Crow Li - 08/08/2024 3:30 PM EST Images from the original note were not included. Dental procedures in this visit D0220 - INTRAORAL - PERIAPICAL FIRST RADIOGRAPHIC IMAGE 31 (Completed) Service provider: Crow Li Billing provider: Crow Li [id number] - CASE PRESENTATION, DETAILED AND EXTENSIVE TREATMENT PLANNING (Completed) Service provider: Crow Li Billing provider: Crow Li [id number] - LIMITED ORAL EVALUATION - PROBLEM FOCUSED (Completed) Service provider: Crow Li Billing provider: Crow Li Completion details D0220 - INTRAORAL - PERIAPICAL FIRST RADIOGRAPHIC IMAGE 31 (Completed) Edentulous- #31 was extracted on 08/02/[address] Iglesias Patient ID: Vesna Gonzalez is a 54 y.o. female. Time Out: No data recorded Location: [facility] Tooth: #31 Procedure: Exam and X-rays Verified the above with patient, delivery driver assistant, and provider. Confirmed via patient's chart, intraorally and by radiographs. Scrape Gatherer: not applicable Chief Complaint Patient presents with Dental Pain Pain on ext site Medical Hx: Vitals: There were no vitals taken for this visit. History reviewed. No pertinent past medical history. Medications: Outpatient Encounter Medications as of 08/08/2024 Medication Sig Dispense Refill acetaminophen (Tylenol) 500 MG tablet Take 1 tablet (500 mg) by mouth every 6 (six) hours if neededfor mild pain for up to 20 doses. 20 tablet 0 acetaminophen (Tylenol) 500 MG tablet Take 1 tablet (500 mg) by mouth every 6 (six) hours if neededfor mild pain for up to 20 doses. 20 tablet 0 [] azithromycin (Zithromax) 250 MG tablet Take 2 tablets on day 1 then 1 tablet on days 2-5.6 tablet 0 No facility-administered encounter medications on file as of 08/08/2024. 53 y/o old female presents for a comprehensive examination done by Dr. Crow Li, KEARA. Chief Complaint: I have pain in the tooth that I got extracted recently in lower right side Medical History: Patient does not report any changes in health issues that could alter the Treatment Plan. Medical consult / medical clearance needed: None WASHOE: Pain: present today along with mild extraoral and intraoral swelling - localized in the area in question Pain is localized in the area in question Allergies: Reviewed in EHR Medications: Reviewed in EHR Discussion: -1 PA taken today- no root tip/remnant evident. -Reviewed radiograph with pt. -Pt was informed that area in question (#31-extracted on 08/02/[address] Shannon Zaman) is healing well and since tooth was extracted recently, pt should continue with her medications (pt has instock as stated by pt - so not prescribed). -Procedure done today : - Irrigated the area with chlorhexidine -OHI reviewed. Emphasis was laid on maintaining good oral hygiene regimen at home along with regular visits to dentist. -Lukewarm water rinses were recommended along with brushing and flossing and consume soft diet. -Pt understood, was satisfied with our conversation and agreed; dismissed in good condition. -All questions answered. Soft tissue exam: WNL; OCS- negative Head and neck exam: Lymph Nodes, Lips, Palate, Buccal Mucosa, Floor of Mouth, Tongue, Tonsils, Alveolar Ridges, Oropharynx, Salivary Ducts, Vestibules - no abnormal findings. TMJ/Occlusal - TMJ is within normal limits. Oral Cancer Risk - low Oral Hygiene Instruction Provided - Yes Oral Hygiene Instructions: Daniels two times daily, modified swartz technique, Floss daily, Electric toothbrush, Soft bristle toothbrush, Daniels Tongue. Referrals - None All questions answered and expressed understanding. Dismissed in good condition. NV: comprehensive exam and prophy - (already requested with Milli) Journeyman Molder: April Cain Dentist: Dr. Crow Li, DMD documented in this encounter Miscellaneous Notes * Dental Procedure Details - Crow Li - 08/08/2024 3:30 PM EST Edentulous- #31 was extracted on 08/02/[address] Iglesias documented in this encounter Plan of Treatment Not on file documented as of this encounter Procedures Procedure Name Priority Date/Time Associated Diagnosis Comments LIMITED ORAL EVALUATION - PROBLEM FOCUSED Routine 08/08/2024 3:30 PM EST 31 INTRAORAL - PERIAPICAL FIRST RADIOGRAPHIC IMAGE Routine 08/08/2024 3:30 PM EST CASE PRESENTATION, DETAILED AND EXTENSIVE TREATMENT PLANNING Routine 08/08/2024 3:30 PM EST documented in this encounter Visit Diagnoses Not on filedocumented in this encounter
--- OUTSIDE RECORDS SUMMARY | 2024-11-08 16:59 | XMS_ITS | Clinical Summary ---
Author Organization [employer] Address [address] [facility] [address] [place] [address] Care Team Providers Care Adobe Layer Name Role Phone Unavailable Primary Care Provider Unavailabl e Allergies Active Allergy Reactions Criticality Noted Date Comments Codeine Hives 06/21/2023 Penicillins Hives 06/21/2023 Medications acetaminophen (Tylenol) 500 MG tablet Take 1 tablet (500 mg) by mouth every 6 (six) hours if needed for mild pain for up to 20 doses. 20 tablet 07/26/2024 Active acetaminophen (Tylenol) 500 MG tablet Take 1 tablet (500 mg) by mouth every 6 (six) hours if needed for mild pain for up to 20 doses. 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 Primary dental caries, cervical origin Social History Tobacco Use Types Packs/Day Years Used Date Smoking Tobacco: Never Passive Smoke Exposure: Never Smokeless Tobacco: Never Tobacco Cessation:Counseling Given: No Alcohol Use Standard Drinks/Week Comments Defer 0 (1 standard drink = 0.6 oz pur e alcohol) Comments Unknown Sex and Gender Information Value Date Recorded Sex Assigned at Female 06/22/2022 10:15 AM EDT Legal Sex Female 10:15 AM EDT Gender Identity Female 06/21/2023 9:03 AM EDT Sexual Orientation Choose not to disclose 2022 9:03 AM EDT Last Filed Vital Signs Vital Sign Reading Time Taken Comments Blood Pressure 128/76 06/21/2023 12:57 PM EDT Pulse - - Temperature - - Respiratory Rate - - Oxygen Saturation - - Inhaled Oxygen Concentration - - Weight - - Height - - Body Mass Index - - Plan of Treatment Health Maintenance Due Date Last Done Comments CT Colonography 1971 Colonoscopy 1971 Colorectal Cancer Screening 1971 Dental Oral Exam 1971 Depression Screening 1971 FIT DNA/Cologuard 1971 FIT 1971 FOBT 1971 HIV Screening 1971 SDOH Screening 1971 Sigmoidoscopy 1971 Alcohol/Substance Use Screening 1983 Hepatitis C Screening 1989 DTaP/Tdap/Td Vaccines (1 - Tdap) 1990 Hepatitis B Vaccines (1 of 3 - 19+ 3-dose series) 1990 Pap Smear 1992 Mammogram 2011 Dental Prophylaxis 02/16/2018 08/17/2017 Dental X-Ray: Bitewings 12/30/2019 12/28/2018 Dental X-Ray: Full Mouth 08/04/2020 08/03/2017 Pneumococcal Vaccine: 50+ Ye ars (1 of 1 - PCV) 2021 Zoster Vaccines (1 of 2) 2021 Cervical Cancer Screening 12/22/2022 HPV/Cotest 12/22/2022 12/22/2017 COVID-19 Vaccine (1 - 2023-2 5 season) 2024 Influenza Vaccine (#1) 2024 Tobacco Screening 08/08/2025 08/08/2024 RSV Patients and Pa tients Aged 60 years or older (1 - 1-dose 75+ series) 2046 HIB Vaccines Aged Out No longer eligi ble based on patient's age to complete this topic HPV Vaccines Aged Out No longer eligi ble based on patient's age to complete this topic Hepatitis A Vaccines Aged Out No long er eligible based on patient's age to complete this topic IPV Vaccines Aged Out No longer eligi ble based on patient's age to complete this topic Meningococcal Vaccine Aged Out No colt dinorah eligible based on patient's age to complete this topic RSV under 20 months Aged Out No longe r eligible based on patient's age to complete this topic Rotavirus Vaccines Aged Out No longer eligible based on patient's age to complete this topic Procedures Procedure Name Priority Date/Time Associated Diagnosis Comments BITEWING - SINGLE RADIOGRAPHIC IMAGE Routine 12/28/2018 12:00 AM EDT ZZZ HISTORICAL HPV MRNA E6/E7 Routine 12/22/2017 1:30 PM EDT PROPHYLAXIS - ADULT Routine 08/17/2017 1 2:00 AM EST PANORAMIC RADIOGRAPHIC IMAGE Routine 08/03/2017 12:00 AM EST from Last 3 Months or Most Recently Relevant to Health Maintenance Results * HPV mRNA E6/E7 (12/22/2017 1:30 PM EDT) HPV mRNA E6/E7 Not Detected NOT DETECTED [facility] Comment: This test was performed using the APTIMA(R) HPV Assay ([employer] This assay detects E6/E7 viral messenger RNA (mRNA) from 14 high-risk HPV types (16,18,31,33,35,39,45,51, 52,56,58,59,66,68). For additional information please refer to: http://education.Med.ly/faq/UGT399g3 (This link is being provided for informational/ educational purposes only.) [facility] by [facility], [facility], [address] [place] [id number] Radames Melvin M.D., Ph.D., Director of Laboratories , [facility] [id number] Please note: ??Effective 05/04/2016, HPV testing will be performed using [employer]'s APTIMA test which targets mRNA. Detecting mRNA instead of DNA, as in older methods, offers significant improvements in specificity. 12/22/2017 1:30 PM EDT Historical Provider HISTORICAL/NON ORDERABLE LABS Final Result [facility] [address] from Last 3 Months or Most Recently Relevant to Health Maintenance Insurance * Guarantor: Vesna Gonzalez Account Type Relation to Patient Date of Phone Billing Address Dental Self [address] [address] [place] AD[place]
--- OUTSIDE RECORDS SUMMARY | 2024-11-08 16:59 | XMS_ITS | Clinical Summary ---
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 Name Role Phone Sejal Watkins MD Primary Care Provider [phone] Social History Tobacco Use Types Packs/Day Years Used Date Smoking Tobacco: Never Smokeless Tobacco: Never Comments Unknown Sex and Gender Information Value Date Recorded Sex Assigned at Not on file Legal Sex Female 12:25 PM EST Gender Identity Not on file Sexual Orientation Not on file Obstetrics History Plan of Treatment Health Maintenance Due Date Last Done Comments Breast Cancer Screening 1971 Hepatitis B Vaccines (1 of 3 - 19+ 3-dose series) 1990 Cervical Cancer Screening: P ap Smear 1992 Pneumococcal Vaccine: 50+ Ye ars (1 of 1 - PCV) 2021 Zoster Vaccines (1 of 2) 2021 Colorectal Cancer Screening: Colonoscopy 07/21/2022 Depression Screening 07/21/2022 HIV Screening 07/21/2022 Hepatitis C Screening 07/21/2022 Social Influencers of Health Screening 07/21/2022 COVID-19 Vaccine ( - 2023-2 5 season) 2024 Influenza Vaccine (#1) 2024 DTaP,Tdap,and Td Vaccines (2 - Td or Tdap) 04/01/2027 04/01/2017 HIB Vaccines Aged Out No longer eligi [...] on patient's age to complete this topic MMR Vaccines Aged Out No longer eligi ble based on patient's age to complete this topic Meningococcal ACWY Vaccine Aged Out N o longer eligible based on patient's age to complete this topic Meningococcal B Vacine Aged Out No lo nger eligible based on patient's age to complete this topic Pneumococcal Vaccine: Pediat rics (0 to 5 Years) and At-Risk Patients (6 to 64 Years) Aged Out No longer eligi ble based on patient's age to complete this topic RSV Immunization Patients [place] 20 months Aged Out No longer eligible b ased on patient's age to complete this topic Varicella Vaccines Aged Out No longer eligible based on patient's age to complete this topic Care Teams Molding Machine Tender Relationship Specialty Start Date End Date Sejal Watkins MD [address] [place] [address] , [address] [facility]A: [facility] PAUL Dumont PCP - General Internal Medicine 08/11/19
== END 2024-11-08 15:19 | disposition home or self-care (01) ==
LOC: HO.HMCH 14:48
PROVIDERS: PCP Internal Medicine; Visit Provider Internal Medicine
DX: M25.551 Pain in right hip (principal); M25.552 Pain in left hip; M25.571 Pain in right ankle and joints of right foot; M25.572 Pain in left ankle and joints of left foot; M51.369 Other intervertebral disc degeneration, lumbar region without mention of lumbar back pain or lower extremity pain; J30.1 Allergic rhinitis due to pollen; K59.03 Drug induced constipation

== ENCOUNTER 2024-11-08 14:48 | Outpatient (REF) | payer OTHER, SELFPAY ==
--- NOTE | ~2024-11-08 | XR_ITS ---
CLINICAL HISTORY: M25.571 - Pain in right ankle and joints of right foot 3 view right ankle Comparison: None Findings: No acute fractures. Ankle mortise intact. No significant arthritic change or erosions. No ankle effusion. No radiopaque foreign body. IMPRESSION: 1. No acute findings. This document has been electronically signed by: Dion Goyal MD on 11/10/2024 07:36:00
--- NOTE | ~2024-11-08 | XR_ITS ---
CLINICAL HISTORY: M25.551 - Pain in right hip 2 view right hip Comparison: None Findings: The bones are intact. No significant arthritic change. The soft tissues are unremarkable. IMPRESSION: No acute findings. This document has been electronically signed by: Dion Goyal MD on 11/10/2024 07:40:43
--- NOTE | ~2024-11-08 | XR_ITS ---
CLINICAL HISTORY: M25.552 - Pain in left hip 2 view left hip Comparison: None Findings: No acute fracture or dislocation No significant arthritic change. The soft tissues are unremarkable. IMPRESSION: No acute findings. This document has been electronically signed by: Dion Goyal MD on 11/10/2024 07:41:00
--- NOTE | ~2024-11-08 | XR_ITS ---
CLINICAL HISTORY: M25.572 - Pain in left ankle and joints of left foot 3 view left ankle Comparison: None Findings: No acute fractures or dislocations. No significant loss of joint space, osteophytes, or erosions. No ankle effusion. No radiopaque foreign body. IMPRESSION: 1. No acute findings. This document has been electronically signed by: Dion Goyal MD on 11/10/2024 07:40:04
== END 2024-11-08 14:49 | disposition home or self-care (01) ==
LOC: HO.XRAY 14:48
PROVIDERS: PCP Internal Medicine; Visit Provider Internal Medicine
DX: M25.551 Pain in right hip (principal); M25.552 Pain in left hip; M25.571 Pain in right ankle and joints of right foot; M25.572 Pain in left ankle and joints of left foot; M51.369 Other intervertebral disc degeneration, lumbar region without mention of lumbar back pain or lower extremity pain; J30.1 Allergic rhinitis due to pollen; K59.03 Drug induced constipation; T50.905A Adverse effect of unspecified drugs, medicaments and biological substances, initial encounter
CPT/HCPCS: 73502; 73600; 99212

== ENCOUNTER → 2024-11-08 15:30 | Outpatient (BNV) | payer OTHER, SELFPAY | PROVIDERS: PCP Internal Medicine; Visit Provider Specialist | DX: M25.551 Pain in right hip (principal); M25.552 Pain in left hip; M25.571 Pain in right ankle and joints of right foot; M25.572 Pain in left ankle and joints of left foot | CPT/HCPCS: 73502; 73600 ==

== ENCOUNTER 2025-01-10 08:41 | Outpatient (AMB) | payer OTHER, SELFPAY ==
--- NOTE | 2025-01-10 08:53 | A.OFFVIS_ITS ---
Vital Signs 01/10/25 08:54 Height 5 ft 3 in Weight 193 lb BMI 34.2 BP 136/78 Blood Pressure Location Rt brachial Position Sitting Pulse 72 Pulse Source Pulse Oximeter Pulse Oximetry (%) 97 Oxygen Delivery Method Room Air Intake Visit Reasons: 6m med check Intake Note: ESTABLISHED PATIENT for GERD + CIC mgmt. CC; Pt denies any GI sx or concerns at this time. 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 Pt confirms she has both pantoprazole and esomeprazole but typically only takes the esomeprazole. 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 pylori) Chronic idiopathic constipation Plan Patient continue Nexium daily. Continue avoiding dietary triggers and late night snacking. Staying upright for minimum 3 hours after meals discussed with patient. Continue taking Motegrity. Patient can take Dulcolax to help her move her bowels better as she continues to have occasional constipation. Patient will follow-up in the office in 6 months, sooner on as needed basis. She is agreeable to this plan and verbalizes understanding of instructions. She was given the opportunity to ask questions and all questions answered. ? Thank you for allowing me to participate her care Medications New bisacodyl (Dulcolax (bisacodyl)) 10 mg (2 x 5 mg) PO BEDTIME 180 tabs 4RF Refilled esomeprazole magnesium (Nexium) 40 mg PO DAILY 90 caps 2RF K21.9 prucalopride (Motegrity) 2 mg PO DAILY 90 tabs 3RF K59.04 TODAY'S VISIT Patient is here today for follow-up. Patient reports that she has been feeling better. Her only taking Nexium in the morning and her symptoms of acid reflux are suppressed. Patient does admit that she is having more appetite and is craving fast food. Patient feels like she gain weight since last visit. Patient reports that she is moving her bowels well. Takes Motegrity daily. Denies melena, hematochezia. Patient denies dyspepsia, dysphagia or odynophagia. Currently patient is doing well, however disappointed as she is gaining weight and would like to so lose weight. FORMERLY [facility], [facility]–1983 Medical History Endometrial cystic hyperplasia History of COVID-19 Hemorrhoids with complication BMI 32.0-32.9,adult Rash Hx of hemorrhoids Allergic rhinitis Drug induced constipation Abdominal pain Anemia Lumbar degenerative disc disease Surgical History History of hemorrhoidectomy (~06/16/22) History of esophagogastroduodenoscopy (EGD) Hx of colonoscopy History of laparoscopic cholecystectomy History of tubal ligation Family History Father No problems noted. Mother History of kidney cancer Maternal Grandmother Colon cancer Daughter Asthma Social History Household Members: None Housing: House Are you a primary administrator health care facility to a significant other at home: No Do you presently have visiting nurse or other home services: No Alcohol intake: never Patient Tobacco Use Status: Never used Tobacco e-Cigarette/Vaping Use: Never Used Second Hand Smoke Exposure: No service: No Current occupational status: unemployed Cognitive needs: No Hearing needs: No Vision needs: No Review of Systems Const Denies weight gain and Denies weight loss ENT Reports no additional complaints, Denies dysphagia and Denies odynophagia Card Reports no additional complaints Resp Reports no additional complaints GI Denies abdominal pain, Denies belching, Denies melena, Denies bloating, Denies change in bowel habits, Denies dysphagia, Denies excessive flatus, Denies dyspepsia, Denies heartburn, Denies diarrhea, Denies loose stools, Denies nausea, Denies odynophagia and Denies vomiting Musc Reports no additional complaints Neuro Reports no additional complaints Psych Reports no additional complaints Endo Reports no additional complaints Physical Exam Vital Signs: Last Vital Signs Pulse 72 01/10/25 08:54 BP 136/78 01/10/25 08:54 Pulse Ox 97 01/10/25 08:54 Oxygen Delivery Method Room Air 01/10/25 08:54 BMI result Body Mass Index 34.2 Const General: healthy appearing and no acute distress Nutritional Appearance: obese Orientation/consciousness: patient oriented x3 Resp Effort & Inspection: normal respiratory effort, able to speak in complete sentences, no tracheal deviation and symmetric chest movement Auscultation: clear to auscultation bilaterally Cardio Rate: regular rate GI Inspection: Yes normal to inspection, Yes distended and Yes obesity Palpation (GI): Soft to palpation, not firm, nontender and No hepatosplenomegaly present Auscultation: normal bowel sounds General: Yes no CVA tenderness Back/Spine/Pelvis Back: no CVA tenderness Skin General skin exam: elasticity normal, turgor normal and dry skin Neuro General: patient oriented x3 Psych Appearance: grossly normal Mental Status: mental status grossly normal Assessment & Plan Assessment & Plan (1) Chronic abdominal pain: Code(s): R10.9 - Unspecified abdominal pain; G89.29 - Other chronic pain Category: Medical (2) GERD (gastroesophageal reflux disease): Code(s): K21.9 - Gastro-esophageal reflux disease without esophagitis Qualifiers: Esophagitis presence: esophagitis presence not specified Qualified Code(s): K21.9 - Gastro-esophageal reflux disease without esophagitis (3) IBS (irritable bowel syndrome): Code(s): K58.9 - Irritable bowel syndrome, unspecified Qualifiers: Irritable bowel syndrome type: with constipation Qualified Code(s): K58.1 - Irritable bowel syndrome with constipation (4) Chronic idiopathic constipation: Code(s): K59.04 - Chronic idiopathic constipation Plan Patient will continue Nexium every morning half an hour before breakfast. Discussed with patient the importance of avoiding dietary triggers. Patient was encouraged to make better choices about meals. Smaller meals and more often. Avoid fast food. Recommended berberine in see if this will stop her cravings. Continue taking Motegrity daily. Increase fluid intake and activity to promote better bowel motility. Patient will follow-up in 6 months, sooner on as needed basis. She is agreeable to this plan and verbalizes understanding of instructions. She was given the opportunity to ask questions and all questions answered. Thank you for allowing me to participate in her care Medications: Refilled esomeprazole magnesium (Nexium) 40 mg PO DAILY 90 caps 2RF K21.9 - Gastro- esophageal reflux disease without esophagitis prucalopride (Motegrity) 2 mg PO DAILY 90 tabs 3RF K59.04 - Chronic idiopathic constipation Coding Level of Care Code Est Pt Level 3 (02994) Diagnoses Chronic abdominal pain R10.9; G89.29 Gastroesophageal reflux disease, unspecified whether esophagitis present K21.9 Esophagitis presence: esophagitis presence not specified Irritable bowel syndrome with constipation K58.1 Irritable bowel syndrome type: with constipation Chronic idiopathic constipation K59.04 Time Spent (min) 25 Comment 15 minutes spent with patient and additional 10 minutes spent reviewing her records
[2025-01-10 08:54] VITALS: BP 136/78; PULSE 72; O2SAT 97; BMI 34.2
== END 2025-01-10 09:23 | disposition home or self-care (01) ==
LOC: HO.HGI 08:42
PROVIDERS: PCP Internal Medicine; Visit Provider Nurse Practitioner Family
DX: R10.9 Unspecified abdominal pain (principal); G89.29 Other chronic pain; K21.9 Gastro-esophageal reflux disease without esophagitis; K58.1 Irritable bowel syndrome with constipation; K59.04 Chronic idiopathic constipation
CPT/HCPCS: 99213

== ENCOUNTER → 2025-01-10 08:41 | Outpatient (BNVA) | payer OTHER, SELFPAY | PROVIDERS: PCP Internal Medicine; Visit Provider Nurse Practitioner Family | DX: K21.9 Gastro-esophageal reflux disease without esophagitis (principal); R10.9 Unspecified abdominal pain; K58.1 Irritable bowel syndrome with constipation; K59.04 Chronic idiopathic constipation; G89.29 Other chronic pain | CPT/HCPCS: 99212 ==

== ENCOUNTER 2025-05-28 15:09 | Outpatient (AMB) | payer OTHER, SELFPAY ==
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
[2025-05-28 15:33] VITALS: BP 140/80; PULSE 86; TEMP 36.3; O2SAT 98; BMI 34.1
--- OUTSIDE RECORDS SUMMARY | 2025-05-28 17:30 | XMS_ITS | Clinical Summary ---
Author Organization [employer] Address [address] [facility] [facility] [place] [address] [place] [address] Care Team Providers Care Director Medical Safety Name Role Phone Unavailable Primary Care Provider [...] pulpitis 06/21/2023 Primary dental caries, cervical origin 3 Encounters Date Type Department Care Team Description 04/16/2025 Telephone [facility]ULT [facility] [address] [place] [address] Luis May DDS 04/05/2025 1:00 PM EDT Office Visit [facility]ULT [facility] [address] [place] [address] Nura Georges DMD from Last 3 Months Social History Tobacco Use Types Packs/Day Years [...] Screening 1971 SDOH Screening 1971 Sigmoidoscopy 1971 Disability Screening 1971 Alcohol/Substance Use Screening 1983 Hepatitis C [...] COVID-19 Vaccine (1 - 2023-2 5 season) 2025 Influenza Vaccine (#1) 2025 Tobacco Screening 04/05/2026 04/05/2025 RSV Patients and Pa tients Aged 60 [...] age to complete this topic Meningococcal B Vaccine Aged Out No l onger eligible based on patient's age to complete [...] Procedure Name Priority Date/Time Associated Diagnosis Comments CASE PRESENTATION, DETAILED AND EXTENSIVE TREATMENT PLANNING Routine 04/05/2025 1:00 PM EDT INTRAORAL - PERIAPICAL FIRST RADIOGRAPHIC IMAGE Routine 04/05/2025 1:00 PM EDT PALLIATIVE (EMERGENCY) TREATMENT OF DENTAL PAIN - MINOR PROCEDURE Routine 04/05/2025 1:00 PM EDT BITEWING - SINGLE RADIOGRAPHIC IMAGE Routine 12/28/2018 [...] HPV mRNA E6/E7 Not Detected NOT DETECTED [facility] Comment: This test was performed using the APTIMA(R) HPV Assay ([employer] This assay detects E6/E7 viral messenger RNA (mRNA) from 14 high-risk HPV types (16,18,31,33,35,39,45,51, 52,56,58,59,66,68). For additional information please refer to: http://education.Nov[employer].new test company/faq/ZQT781p6 (This link is being provided for informational/ educational purposes only.) Test Performed by [employer] [employer] [facility], [address] [place] [address] Radames Melvin M.D., Ph.D., Director of Laboratories , CLIA [id number] Please note: Effective 05/04/2016, HPV testing will be performed using [employer]'s APTIMA test which targets mRNA. Detecting mRNA instead of DNA, as in older methods, offers significant improvements in specificity. 12/22/2017 1:30 PM EDT us Historical Provider HISTORICAL/NON ORDERABLE LABS Final Result [facility] [address] [place] [address], from Last 3 Months or Most Recently Relevant to Health Maintenance Insurance [place] [employer] [place]
--- OUTSIDE RECORDS SUMMARY | 2025-05-28 17:30 | XMS_ITS | Clinical Summary ---
Author Organization [facility] it Address [address] [place] [address] Care Team Providers Care Hospice Chaplain Name Role Phone Sejal Watkins MD Primary Care Provider [phone] Social History Tobacco Use Types Packs/Day Years Used Date Smoking Tobacco: Never Smokeless Tobacco: Never Comments Unknown Sex and Gender Information Value Date Recorded Sex Assigned at Not on file Legal Sex Female 12:25 PM EST Gender Identity Not on file Sexual Orientation Not on file Obstetrics History Plan of Treatment Health Maintenance Due Date Last Done Comments Breast Cancer Screening 1971 Colorectal Cancer Screening: Colonoscopy 1971 Hepatitis B Vaccines (1 of 3 - 19+ 3-dose series) 1990 Cervical Cancer Screening: P ap Smear 1992 Pneumococcal Vaccine: 50+ Ye ars (1 of 1 - PCV) 2021 Zoster Vaccines (1 of 2) 2021 HIV Screening 07/21/2022 Hepatitis C Screening 07/21/2022 Social Influencers of Health Screening 07/21/2022 Depression Screening 08/23/2024 COVID-19 Vaccine ( - 2023-2 5 season) 2025 Influenza Vaccine (#1) 2025 DTaP,Tdap,and Td Vaccines (2 - Td or Tdap) 04/01/2027 04/01/2017 RSV Immunization Adult Patie nts (1 - 1-dose 75+ series) 2046 HIB [...] age to complete this topic Care Teams Hospice Chaplain Relationship Specialty Start Date End Date Sejal Watkins MD [address] [place] [address] , [address] [facility] D/B/A: [facility] PAUL Dumont PCP - General Internal Medicine 08/11/19
== END 2025-05-28 16:08 | disposition home or self-care (01) ==
LOC: HO.HMCH 15:10
PROVIDERS: PCP Internal Medicine; Visit Provider Internal Medicine
DX: Z00.00 Encounter for general adult medical examination without abnormal findings (principal); H53.8 Other visual disturbances; J98.8 Other specified respiratory disorders; M51.369 Other intervertebral disc degeneration, lumbar region without mention of lumbar back pain or lower extremity pain; J30.1 Allergic rhinitis due to pollen; F41.1 Generalized anxiety disorder; R03.0 Elevated blood-pressure reading, without diagnosis of hypertension; K21.9 Gastro-esophageal reflux disease without esophagitis

== ENCOUNTER 2025-05-28 15:09 | Outpatient (REF) | payer OTHER, SELFPAY ==
[2025-05-28 16:39] LABS: MANUAL DIFF FLAG NO
[2025-05-28 17:46] LABS: Hematocrit 45.0 % (37.0-47.0); Hemoglobin 14.5 g/dl (12.0-16.0); Imm Gran Abs Auto 0.02 X10*3/uL (0.00-0.03); Imm Gran Pct Auto 0.2 % (0.0-0.4); Lymphocytes Absolute Auto 3.7 X10*3/uL (1.2-4.9); Mean Corpuscular HGB Conc 32.2 g/dl (31.0-35.0); Mean Corpuscular Hemoglobin 26.3 pg (27.0-33.0); Mean Corpuscular Volume 81.7 fL (80.0-98.0); NRBC Abs Auto 0.000 X10*3/uL (0.0-0.012); NRBC Pct Auto 0.0 /100WBC (0.0-0.2); Platelet Count 260 X10*3/uL (160-400); Red Blood Count 5.51 X10*6/uL (4.20-5.50); White Blood Count 8.4 X10*3/uL (4.8-10.8)
[2025-05-28 17:58] LABS: Hemoglobin A1C 150.8798 umol/L
[2025-05-28 18:32] LABS: Alanine Aminotransferase 94 U/L (0-31); Albumin Level 3.9 g/dL (3.5-5.0); Alkaline Phosphatase 83 U/L (39-117); Anion Gap 11 (12-20); Aspartate Amino Transferase 111 U/L (5-31); Blood Urea Nitrogen 16 mg/dL (9-16); Calcium 9.3 mg/dL (8.4-10.2); Carbon Dioxide 28 mmol/L (22-29); Chloride 109 mmol/L (96-108); Cholesterol 166 mg/dL (<200); Estimated Glomerular Filt Rate > 60; HDL Cholesterol 44 mg/dL (>40); Potassium 3.3 mmol/L (3.3-5.1); Sodium 145 mmol/L (135-145); Total Protein 7.1 g/dL (6.5-8.0); Triglycerides 524 mg/dL (<150)
[2025-05-29 08:36] LABS: HBS Num1 0.00 mIU/mL (0-7.99); HBc Num1 0.05 S/CO (0.00-0.79); HBsAGNum1 0.38 S/CO (0.00-0.99); Hepatitis B Surface Antigen Negative (Negative); ~Hepatitis B Surface Antibody NONREACTIVE (Nonreactive)
[2025-06-03 07:07] LABS: VITAMIN D (1,25 OH) D3 61 pg/mL; Vit D (1,25-Dihydroxy) Total 61 pg/mL (18-72); Vitamin D (1,25 OH) D2 <8 pg/mL
== END 2025-05-28 15:10 | disposition home or self-care (01) ==
LOC: HO.LAB 15:09
PROVIDERS: PCP Internal Medicine; Visit Provider Internal Medicine
DX: Z00.00 Encounter for general adult medical examination without abnormal findings (principal); H53.8 Other visual disturbances; J98.8 Other specified respiratory disorders; M51.369 Other intervertebral disc degeneration, lumbar region without mention of lumbar back pain or lower extremity pain; J30.1 Allergic rhinitis due to pollen; F41.1 Generalized anxiety disorder; R03.0 Elevated blood-pressure reading, without diagnosis of hypertension; K21.9 Gastro-esophageal reflux disease without esophagitis; Z79.891 Long term (current) use of opiate analgesic; Z79.899 Other long term (current) drug therapy
CPT/HCPCS: 36415; 80053; 80061; 82652; 83036; 84443; 85025; 86704; 86706; 87340

== ENCOUNTER 2025-07-16 12:49 | Outpatient (AMB) | payer OTHER, SELFPAY ==
--- NOTE | 2025-07-16 12:53 | A.OFFVIS_ITS ---
Vital Signs 07/16/25 12:54 Height 5 ft 3 in Weight 189 lb BMI 33.5 BP 143/85 H Blood Pressure Location Lt brachial Position Sitting Pulse 87 Pulse Oximetry (%) 96 Oxygen Delivery Method Room Air Intake Visit Reasons: 6m Intake Note: Patient 6 month follow up for or GERD + CIC mgmt. also lab results. Patient cc: betewwn diarrhea and constipation on and off. 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 Accompanied by: Self / Same As Patient Allergies codeine (From Tylenol-Codeine #3) Allergy (Intermediate, Verified 07/16/25 12:53) HIVES, agitation omeprazole (OMEPRAZOLE) Allergy (Intermediate, Verified 07/16/25 12:53) abd pain/bloating penicillin G Allergy (Intermediate, Verified 07/16/25 12:53) rash morphine (MORPHINE) Adverse Reaction (Intermediate, Verified 07/16/25 12:53) agitation, flips out HPI HPI 6m: Details: LAST VISIT: Chronic abdominal pain GERD (gastroesophageal reflux disease) IBS (irritable bowel syndrome) Chronic idiopathic constipation Plan Patient will continue Nexium every morning half an hour before breakfast. Discussed with patient the importance of avoiding dietary triggers. Patient was encouraged to make better choices about meals. Smaller meals and more often. Avoid fast food. Recommended berberine in see if this will stop her cravings. Continue taking Motegrity daily. Increase fluid intake and activity to promote better bowel motility. Patient will follow-up in 6 months, sooner on as needed basis. She is agreeable to this plan and verbalizes understanding of instructions. She was given the opportunity to ask questions and all questions answered. ? Thank you for allowing me to participate in her care Refilled esomeprazole magnesium (Nexium) 40 mg PO DAILY 90 caps 2RF K21.9 prucalopride (Motegrity) 2 mg PO DAILY 90 tabs 3RF K59.04 TODAY'S VISIT: Patient seen her PCP in May. CMP was ordered and patient was found to have elevated in liver enzymes. Patient denies drinking any alcohol. Patient is not on cholesterol medication. She does however admit to be eating fast food and gaining weight. Patient reports that she has been dealing with a lot of stress lately and she has been stress eating. Patient reports that she has family history of stomach cancer , things that her sister has a liver disease but not sure. FIB-4 score: 2.33?points Further investigation needed Approximate fibrosis stage: Ghanshyam 2-3 (Bryan et al 2006) [facility] Medical History Endometrial cystic hyperplasia History of COVID-19 Hemorrhoids with complication BMI 32.0-32.9,adult Rash Hx of hemorrhoids Allergic rhinitis Drug induced constipation Abdominal pain Anemia Lumbar degenerative disc disease Surgical History History of hemorrhoidectomy (~06/16/22) History of esophagogastroduodenoscopy (EGD) Hx of colonoscopy History of laparoscopic cholecystectomy History of tubal ligation Family History Father No problems noted. Mother History of kidney cancer Maternal Grandmother Colon cancer Daughter Asthma Social History Household Members: None Housing: House Are you a primary childcare teacher to a significant other at home: No Do you presently have visiting nurse or other home services: No Alcohol intake: never Patient Tobacco Use Status: Never used Tobacco e-Cigarette/Vaping Use: Never Used Second Hand Smoke Exposure: No service: No Current occupational status: unemployed Cognitive needs: No Hearing needs: No Vision needs: No Review of Systems Const Denies weight gain and Denies weight loss ENT Reports no additional complaints, Denies dysphagia and Denies odynophagia Card Reports no additional complaints Resp Reports no additional complaints GI Denies abdominal pain, Denies belching, Denies melena, Denies bloating, Denies change in bowel habits, Denies dysphagia, Denies excessive flatus, Denies dyspepsia, Denies heartburn, Denies diarrhea, Denies loose stools, Denies nausea, Denies odynophagia and Denies vomiting Musc Reports no additional complaints Neuro Reports no additional complaints Psych Reports no additional complaints Endo Reports no additional complaints Physical Exam Vital Signs: Last Vital Signs Pulse 87 07/16/25 12:54 BP 143/85 H 07/16/25 12:54 Pulse Ox 96 07/16/25 12:54 Oxygen Delivery Method Room Air 07/16/25 12:54 BMI result Body Mass Index 33.5 Const General: healthy appearing and no acute distress Nutritional Appearance: obese Orientation/consciousness: patient oriented x3 Resp Effort & Inspection: normal respiratory effort, able to speak in complete sentences, no tracheal deviation and symmetric chest movement Auscultation: clear to auscultation bilaterally Cardio Rate: regular rate GI Inspection: Yes normal to inspection, Yes distended and Yes obesity Palpation (GI): Soft to palpation, not firm, nontender and No hepatosplenomegaly present Auscultation: normal bowel sounds General: Yes no CVA tenderness Back/Spine/Pelvis Back: no CVA tenderness Skin General skin exam: elasticity normal, turgor normal and dry skin Neuro General: patient oriented x3 Psych Appearance: grossly normal Mental Status: mental status grossly normal Results Reviewed Results Reviewed: Laboratory Tests 08/13/23 05/28/25 15:27 16:38 AST 34 H 111 H ALT 60 H 94 H Alkaline Phosphatase 73 83 Assessment & Plan Assessment & Plan (1) GERD (gastroesophageal reflux disease): Code(s): K21.9 - Gastro-esophageal reflux disease without esophagitis Category: Medical Qualifiers: Esophagitis presence: esophagitis presence not specified Qualified Code(s): K21.9 - Gastro-esophageal reflux disease without esophagitis (2) Elevated liver enzymes: Code(s): R74.8 - Abnormal levels of other serum enzymes Category: Medical (3) Hemorrhoids with complication: Code(s): K64.8 - Other hemorrhoids Category: Medical (4) Abdominal pain: Code(s): R10.9 - Unspecified abdominal pain Category: Medical Qualifiers: Abdominal location: generalized Qualified Code(s): R10.84 - Generalized abdominal pain (5) Drug induced constipation: Code(s): K59.03 - Drug induced constipation Category: Medical Plan Transaminitis, patient will be sent to rule out any autoimmune disorders. Will order ultrasound with liver elastography. FIB-4 score: 2-3. Discussed with patient the importance of losing weight. Discuss dietary changes. List provided to patient. Recommendation for low fat, low carb, low salt and high protein diet. Patient will return and for months. She is agreeable to plan of care and verbalizes understanding of instructions. She was given the opportunity to ask questions and all questions answered. Thank you for allowing me to participate in her care Orders: Orders Alpha Fetoprotein Today R79.89 - Other specified abnormal findings of blood chemistry Smooth Muscle Antibody Today R79.89 - Other specified abnormal findings of blood chemistry Ceruloplasmin Today R79.89 - Other specified abnormal findings of blood chemistry Mitochondrial Antibody Today R79.89 - Other specified abnormal findings of blood chemistry ELDER Reflex Titer and Pattern Today R74.8 - Abnormal levels of other serum enzymes Hepatitis A,B,C Profile Today R79.89 - Other specified abnormal findings of blood chemistry C Reactive Protein Today K58.9 - Irritable bowel syndrome, unspecified HIV Ab/Ag Today R79.89 - Other specified abnormal findings of blood chemistry Liver Fibrosis Pnl Today K76.0 - Fatty (change of) liver, not elsewhere classified US abdomen comp w elastography Today R79. - Other specified abnormal findings of blood chemistry Medications: New bisacodyl (Dulcolax (bisacodyl)) 10 mg (2 x 5 mg) PO BEDTIME 180 tabs 4RF Coding Level of Care Code Est Pt Level 4 (40169) Complex visit Add On G2211 Diagnoses Gastroesophageal reflux disease, unspecified whether esophagitis present K21.9 Esophagitis presence: esophagitis presence not specified Elevated liver enzymes R74.8 Hemorrhoids with complication K64.8 Generalized abdominal pain R10.84 Abdominal location: generalized Drug induced constipation K59.03 Time Spent (min) 40 Comment 25 minutes spent with patient and additional 15 minutes spent reviewing her records
[2025-07-16 12:54] VITALS: BP 143/85; PULSE 87; O2SAT 96; BMI 33.5
--- OUTSIDE RECORDS SUMMARY | 2025-07-16 17:06 | XMS_ITS | Clinical Summary ---
Author Organization [employer] Address [address] [place] [address] Care Team Providers Care Rn Icu Name Role Phone Unavailable Primary Care Provider [...] pulpitis 06/21/2023 Primary dental caries, cervical origin Encounters Date Type Department Care Team Description 04/16/2025 Telephone [facility] [address] [place] [address] Luis May DDS from Last 3 Months Social History Tobacco [...] HPV/Cotest 12/22/2022 12/22/2017 COVID-19 Vaccine (1 - 2024-2 6 season) 2025 Influenza Vaccine (#1) 2025 Tobacco [...] RADIOGRAPHIC IMAGE Routine 12/28/2018 12:00 AM EDT LARISA HISTORICAL HPV MRNA E6/E7 Routine 12/22/2017 1:30 PM EDT PROPHYLAXIS - ADULT Routine 08/17/2017 1 2:00 AM EST PANORAMIC RADIOGRAPHIC IMAGE Routine 08/03/2017 12:00 AM EST from Last 3 Months or Most Recently Relevant to Health Maintenance Results * HPV mRNA E6/E7 (12/22/2017 1:30 PM EDT) HPV mRNA E6/E7 Not Detected NOT DETECTED [facility] Comment: This test was performed using the APTIMA(R) HPV Assay ([employer] This assay detects E6/E7 viral messenger RNA (mRNA) from 14 high-risk HPV types (16,18,31,33,35,39,45,51, 52,56,58,59,66,68). For additional information please refer to: http://education.Software 2000/faq/DGR563p0 (This link is being provided for informational/ educational purposes only.) Test Performed by [facility], [address] [place] [id number] Radames Melvin M.D., Ph.D., Director of Laboratories , [facility] [id number] Please note: Effective 05/04/2016, HPV testing will be performed using [employer]'s APTIMA test which targets mRNA. Detecting mRNA instead of DNA, as in older methods, offers significant improvements in specificity. 12/22/2017 1:30 PM EDT us Historical Provider HISTORICAL/NON ORDERABLE LABS Final Result [facility] [address] from Last 3 Months or Most Recently Relevant to Health Maintenance Insurance [facility] MEDICAID STAND ADULT
== END 2025-07-16 13:26 | disposition home or self-care (01) ==
LOC: HO.HGI 12:49
PROVIDERS: PCP Internal Medicine; Visit Provider Nurse Practitioner Family
DX: K21.9 Gastro-esophageal reflux disease without esophagitis (principal); R74.8 Abnormal levels of other serum enzymes; K64.8 Other hemorrhoids; R10.84 Generalized abdominal pain; K59.03 Drug induced constipation
CPT/HCPCS: 99214

== ENCOUNTER 2025-07-16 12:49 | Outpatient (REF) | payer OTHER, SELFPAY ==
--- OUTSIDE RECORDS SUMMARY | 2025-07-16 18:28 | XMS_ITS | Clinical Summary ---
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
[2025-07-17 05:20] LABS: HBS Num1 0.00 mIU/mL (0-7.99); HBc Num1 0.08 S/CO (0.00-0.79); HBsAGNum1 0.43 S/CO (0.00-0.99); HIV Num 1 0.09 S/CO (0.00-0.99); Hepatitis A Antibody IgM 0.22 Index (0-0.79); Hepatitis B Surface Antigen Negative (Negative); ~HepC Num1 0.08 S/CO (0.00-0.79); ~Hepatitis A Antibody IgM Nonreactive (Nonreactive); ~Hepatitis B Surface Antibody NONREACTIVE (Nonreactive); ~Hepatitis C Antibody Nonreactive (Nonreactive)
[2025-07-22 22:54] LABS: Anti Nuclear Antibody Pattern Nuclear, Homogeneous; Anti Nuclear Antibody Screen POSITIVE (NEGATIVE); Anti Nuclear Antibody Titer 1:160 titer
[2025-07-25 00:24] LABS: FIB-ALT 78 U/L (6-29); FIB-Alpha-2-Macroglobulin 201 mg/dL (106-279); FIB-Apolipoprotein A1 169 mg/dL (101-198); FIB-GGT 74 U/L (3-70); FIB-Haptoglobin 110 mg/dL (43-212); FIB-Total Bilirubin 0.5 mg/dL (0.2-1.2); Liver Fibrosis Score 0.23; Liver Fibrosis Stage F0-F1; Nec Inflam Act Grade A1-A2; Nec Inflam Act Score 0.44
== END 2025-07-16 12:50 | disposition home or self-care (01) ==
LOC: HO.LAB 12:49
PROVIDERS: PCP Internal Medicine; Visit Provider Nurse Practitioner Family
DX: K21.9 Gastro-esophageal reflux disease without esophagitis (principal); K59.03 Drug induced constipation; K58.1 Irritable bowel syndrome with constipation; K64.8 Other hemorrhoids; K76.0 Fatty (change of) liver, not elsewhere classified; R79.89 Other specified abnormal findings of blood chemistry; R74.8 Abnormal levels of other serum enzymes; Z11.4 Encounter for screening for human immunodeficiency virus [HIV]; Z11.59 Encounter for screening for other viral diseases; Z01.84 Encounter for antibody response examination
CPT/HCPCS: 36415; 81596; 82105; 82390; 86015; 86038; 86039; 86140; 86381; 86704; 86706; 86709; 86803; 87340; 87389; 99212